=== PATIENT | female | born 2005 | race Caucasian/White ===

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

== ENCOUNTER 2024-06-22 12:10 | Outpatient (CLI) | payer OTHER, SELFPAY ==
--- NOTE | ~2024-06-22 | US_ITS ---
EXAMINATION: US arterial ankle brachial ind DATE: 06/22/2024 12:42 INDICATION: Peripheral arterial occlusive disease. Bilateral lower limb swelling and bilateral foot p ain TECHNIQUE: Segmental pressures and plethysmographic and Doppler waveforms of the brachial and lower e xtremity arteries were obtained. COMPARISON: None. FINDINGS: Right and left brachial artery pressures of 119 mm Hg and 125 mm Hg, respectively, are concordant (no rmal difference <= 30 mmHg). The right ankle-brachial index (IRENE) is 1.13 (normal >= 0.9-1.0). The right great toe-brachial index (TBI) is 1.13 (normal >= 0.65). Arterial Doppler waveforms are biphasic with brisk systolic upstrokes at both right posterior tibial and dorsalis pedis arteries. The left IRENE is 1.10. The left TBI is 1.23. Arterial Doppler waveforms are biphasic with brisk systol ic upstrokes at both left posterior tibial and dorsalis pedis arteries. IMPRESSION: 1. No significant arterial occlusive disease to either lower limb with normal bilateral ABIs and TBIs . Reviewed, dictated and finalized at location B. IMPRESSION: 1. No significant arterial occlusive disease to either lower limb with normal b ilateral ABIs and TBIs.
== END 2024-06-22 12:11 | disposition home or self-care (01) ==
PROVIDERS: PCP Internal Medicine; Visit Provider Nurse Practitioner Family
DX: I73.9 Peripheral vascular disease, unspecified (principal); M79.89 Other specified soft tissue disorders; M79.671 Pain in right foot
CPT/HCPCS: 93922

== ENCOUNTER 2024-06-26 15:30 | Outpatient (CLI) | payer OTHER, SELFPAY ==
[2024-06-26 16:16] LABS: Strep Group A RT-PCR NOT DETECTED (Negative)
[2024-06-26 16:18] LABS: Influenza A QL RT-PCR Negative (Negative); Influenza B QL RT-PCR Negative (Negative); SARS-CoV-2 RNA PCR Negative (Negative)
== END 2024-06-26 15:31 | disposition home or self-care (01) ==
PROVIDERS: PCP Internal Medicine; Visit Provider Nurse Practitioner Family
DX: J02.9 Acute pharyngitis, unspecified (principal); J31.0 Chronic rhinitis
CPT/HCPCS: 87636; 87651

== ENCOUNTER 2024-09-27 07:27 | Emergency (ER) | payer OTHER, SELFPAY ==
[2024-09-27] VITALS (12 sets, daily range): BP systolic 145–158; BP diastolic 88–98; PULSE 69–88; RESP 18–20; TEMP 35.1–36.3; O2SAT 97–100
--- NOTE | ~2024-09-27 | CT_ITS ---
CLINICAL INDICATION: Periumbilical pain for 48 hours COMPARISON: None. TECHNIQUE: Multiple contiguous axial images of the abdomen and pelvis were performed without the admi nistration of intravenous contrast The dose-length product (DLP) was 1377.17 mGy-cm. Automated exposure control and iterative reconstruction technique were employed. FINDINGS/OBSERVATIONS: Visualized lower thorax: The bilateral lung bases are clear. The heart is of normal size, without pericardial effusion. Liver: The liver demonstrates homogeneous attenuation and is borderline enlarged measuring 19 cm in longitud inal dimension. Gallbladder and biliary system: The gallbladder is only minimally distended, and otherwise unremarkable. Pancreas: Limited evaluation of the pancreas secondary to the lack of intravenous contrast. Spleen: The spleen demonstrates homogeneous attenuation and is not enlarged measuring 11 cm in longitudinal d imension. Kidneys: The bilateral kidneys are unremarkable, without hydronephrosis or renal calculi. Adrenal glands: Unremarkable. Gastrointestinal tract: Trace mural thickening and edema within the cecum and ascending colon with surrounding inflammatory c hange. The remainder of the colon is unremarkable. Appendix: The appendix is of normal caliber (axial series, images 133 through 141) Vasculature: Unremarkable. Lymph nodes: No pathologically enlarged or morphologically suspicious lymph nodes within the retroperitoneum or at the root of the mesentery. Pelvic structures: The bladder is decompressed, and otherwise unremarkable. The uterus is anteverted and anteflexed, and otherwise unremarkable. Body wall and musculoskeletal: Small fat-containing umbilical hernia. No significant degenerative disease within the lower thoracic or lumbosacral spine. IMPRESSION: Focal colitis involving the cecum and ascending colon, as detailed above. Borderline hepatomegaly. Normal caliber appendix. Reviewed, dictated and finalized at location A. OR BRIDGE OPERATOR
--- NOTE | 2024-09-27 07:43 | ED.GENADULT ---
HPI - General Adult General Chief complaint: Nausea/Vomiting/Diarrhea Stated complaint: abdominal pain, throwing up Time Seen by Provider: 09/27/24 07:42 Source: patient Mode of arrival: ambulatory Limitations: no limitations History of Present Illness HPI narrative: 18-year-old white female complains of abdominal pain 6/10 constant over last 2 or 3 days associated with nausea and runny nose took Pepto-Bismol and Zofran without any help. 2 days ago patient started having a cough and runny nose coughing up yellow sputum to arrange. She has had multiple diarrheal stools last 24 hours no blood. She vomited just before coming to the emergency room Pepto-Bismol she took and had some dry heaves. She has had a fever of 100 been felt a little chilled. Denies any rash swelling lumps or bumps itching dizziness or lightheadedness bleeding or bruising her last menstrual period was 1 month ago she says she is a virgin. She took some medicine for nausea that her aunt gave her 2 days ago which helped but now she is nauseated again. She smokes marijuana almost every day but has not for the last couple days denies any other illicit drug use smoking or alcohol. Related Data Home Medications ?Medication ?Instructions ?Recorded ?Confirmed ?Last Taken ?Type quetiapine 50 mg tablet 50 mg PO DIRECTED 09/22/22 09/22/22 Unknown History ziprasidone HCl 20 mg capsule 20 mg PO DIRECTED 09/22/22 09/22/22 Unknown History hydroxyzine pamoate 50 mg capsule 50 mg PO DAILY 12/02/23 12/02/23 Unknown History Allergies Allergy/AdvReac Type Severity Reaction Status Date / Time No Known Allergies Allergy Verified 12/02/23 13:27 Review of Systems Review of Systems: All systems reviewed & are unremarkable except as noted in HPI and below PMFSH Past Medical History Medical History Bipolar disorder Anxiety and depression Social History Social History Substance use type: does not use Exam Narrative: White female patient with Mild distress.? Head normocephalic, atraumatic.? Eyes conjunctiva pink sclera nonicteric.? Extraocular movements are intact.? Ears externally normal.? Oropharynx is clear with moist mucous membranes without exudates.? Neck is supple nontender no lymphadenopathy.? Back is nontender.? Lungs are clear.? Heart is regular rate and rhythm without murmurs gallops or rubs.? Chest wall nontender. Abdomen is soft and mild epigastric tenderness but no hepatosplenomegaly or masses no CVA tenderness no abdominal bruits.? Extremities no cyanosis clubbing or edema.? Skin is warm and dry without rashes or lesions.? Neurological patient is alert and oriented x4.? Motor and sensory grossly intact.? Gait is normal. Course Vital Signs Vital signs: Vital Signs Temperature 35.1 C L 09/27/24 07:28 Pulse Rate 88 09/27/24 07:28 Respiratory Rate 18 09/27/24 07:28 Blood Pressure 156/94 H 09/27/24 07:28 Pulse Oximetry 99 09/27/24 07:28 Oxygen Delivery Room Air 09/27/24 07:28 Temperature 36.3 C L 09/27/24 09:36 Pulse Rate 77 09/27/24 09:36 Respiratory Rate 18 09/27/24 09:36 Blood Pressure 158/88 H 09/27/24 09:36 Pulse Oximetry 99 09/27/24 09:36 Oxygen Delivery Room Air 09/27/24 09:36 Medical Decision Making [facility] Narrative Medical decision making narrative: Patient placed in room: 6 ? History and physical was performed. blood cultures were obtained normal lipase lactic acid, test was negative, CBC was unremarkable. Creatinine was 1.35. The rest of CMP was normal Urinalysis: Urinalysis showed specific gravity of 1.030 after L of fluids. Leukocyte esterase trace yeast present 4+ bacteria trace urine ketones CT abdomen pelvis per radiologist:Focal colitis involving the cecum and ascending colon Borderline hepatosplenomegaly. 9:33 a.m. blood pressure was 151/101 repeat 141/104. Patient says she has been having history of hypertension but she is not any medicines they been just walked her blood pressure. manual blood pressure was taken was 158/ 88. Patient does not want to be admitted. risks and benefits discussed with patient she was leaving AMA anyway . Independent Historian: patient External Source Review: Differential Dx includes but not limited to: cyclic vomiting acute gastroenteritis COVID flu acute gastroenteritis Medications were Reviewed: home meds reviewed Medications given: normal saline bolus and Zofran 4 mg Protonix 40 IV, Toradol 30 IV, patient given Cipro 500 p.o. prior to discharge leaving AMA Independently Interpreted by me: CT abdomen pelvis showed no active disease as independently interpreted by me. Shared decision Making: Evaluation was discussed all questions were asked and answered patient does not want to be admitted to the hospital and wants to leave against medical advice. . Risk and benefits were discussed she was leave AMA anyway. patient was instructed she could return at any time if she changes her mind. Social Situation Impacting Patients Care: Discussed with DrSarbjit WOOD DIAGNOSIS: Dehydration acute kidney injury focal colitis DISPOSITION : patient left AMA CONDITION AT DISCHARGE: stable Vital Signs Vital Signs: Vital Signs Temperature 35.1 C L 09/27/24 07:28 Pulse Rate 88 09/27/24 07:28 Respiratory Rate 18 09/27/24 07:28 Blood Pressure 156/94 H 09/27/24 07:28 Pulse Oximetry 99 09/27/24 07:28 Oxygen Delivery Room Air 09/27/24 07:28 Temperature 36.3 C L 09/27/24 09:36 Pulse Rate 77 09/27/24 09:36 Respiratory Rate 18 09/27/24 09:36 Blood Pressure 158/88 H 09/27/24 09:36 Pulse Oximetry 99 09/27/24 09:36 Oxygen Delivery Room Air 09/27/24 09:36 Lab Data 09/27/24 08:06 09/27/24 08:06 Labs: Lab Results 09/27/24 09/27/24 09/27/24 Range/Units 07:45 07:58 08:05 WBC (4.8-10.8) K/mm3 RBC (4.20-5.40) M/mm3 Hgb (12.0-15.0) g/dL Hct (35.0-49.0) % MCV (78.0-102.0) fL MCH (27.0-31.0) pg MCHC (32-36) g/dL RDW (11.6-14.4) % Plt Count (150-420) K/mm3 MPV (9.2-11.8) fl Immature Gran % (Auto) (0.0-0.0) % Neut % (Auto) (50.0-70.0) % Lymph % (Auto) (18.0-42.0) % [place] % (Auto) (2.0-11.0) % Eos % (Auto) (1.0-6.0) % Baso % (Auto) (0.0-1.0) % Lymph # (Auto) (1.10-4.50) K/mm3 [place] # (Auto) (0.10-0.90) K/mm3 Eos # (Auto) (0.02-0.50) K/mm3 Baso # (Auto) (0.00-0.10) K/mm3 Abs Immat Gran (auto) (0.00-0.00) K/mm3 Absolute Neuts (auto) (1.70-7.20) K/mm3 Absolute Nucleated RBC (0.00-0.00) K/mm3 Nucleated RBC % (0-0.0) % Sodium (136-145) mmol/L Potassium (3.5-5.1) mmol/L Chloride (98-108) mmol/L Carbon Dioxide (21-32) mmol/L Anion Gap (4-12) mmol/L BUN (7-18) mg/dL Creatinine (0.55-1.02) mg/dL Estim Creat Clear Calc ml/min Estimated GFR (59 - ) Glucose (70-99) mg/dL Calculated Osmolality (285-295) mOsm/kg Lactic Acid (0.4-2.0) mmol/L Calcium (8.5-10.1) mg/dL Total Bilirubin (0.00-1.00) mg/dL AST (15-37) U/L ALT (14-59) U/L Alkaline Phosphatase (50-130) U/L Total Protein (6.4-8.2) g/dL Albumin (3.4-5.0) g/dL Lipase (16-77) U/L Serum HCG, Qual Negative Urine Color Yellow (Yellow) Urine Appearance Sl cloudy A (Clear) Urine pH 5.5 (5.0-8.0) Ur Specific [place]ancey >= 1.030 H (1.010-1.020) Urine Protein Negative (Negative) Urine Glucose (UA) Negative (Negative) Urine Ketones Trace H (Negative) Ur Blood (Man) Negative (Negative) Urine Nitrate Negative (Negative) Urine Bilirubin Negative (Negative) Urine Urobilinogen 0.2 (0.2-1.0) mg/dL Leukocyte Esterase Rfl Trace H (Negative) RYAN/UL Urine RBC 0-2 (0-2) /hpf Urine WBC 4-6 H (0-3) /hpf Ur Squamous Epith Cells Moderate H (Few) /hpf Urine Bacteria 4+ (None) /hpf Urine Yeast (Budding) Present H (None) /hpf Influenza A (RT-PCR) Negative (Negative) Influenza B (RT-PCR) Negative (Negative) RSV (RT-PCR) Negative (Negative) SARS-CoV-2 RNA (RT-PCR) Negative (Negative) 09/27/24 Range/Units 08:06 WBC 9.7 (4.8-10.8) K/mm3 RBC 5.87 H (4.20-5.40) M/mm3 Hgb 15.4 H (12.0-15.0) g/dL Hct 44.7 (35.0-49.0) % MCV 76.1 L (78.0-102.0) fL MCH 26.2 L (27.0-31.0) pg MCHC 34.5 (32-36) g/dL RDW 12.0 (11.6-14.4) % Plt Count 245 (150-420) K/mm3 MPV 9.2 (9.2-11.8) fl Immature Gran % (Auto) 0.3 H (0.0-0.0) % Neut % (Auto) 74.0 H (50.0-70.0) % Lymph % (Auto) 17.7 L (18.0-42.0) % [place] % (Auto) 6.8 (2.0-11.0) % Eos % (Auto) 0.7 L (1.0-6.0) % Baso % (Auto) 0.5 (0.0-1.0) % Lymph # (Auto) 1.71 (1.10-4.50) K/mm3 [place] # (Auto) 0.66 (0.10-0.90) K/mm3 Eos # (Auto) 0.07 (0.02-0.50) K/mm3 Baso # (Auto) 0.05 (0.00-0.10) K/mm3 Abs Immat Gran (auto) 0.03 H (0.00-0.00) K/mm3 Absolute Neuts (auto) 7.15 (1.70-7.20) K/mm3 Absolute Nucleated RBC 0.00 (0.00-0.00) K/mm3 Nucleated RBC % 0.0 (0-0.0) % Sodium 137 (136-145) mmol/L Potassium 3.9 (3.5-5.1) mmol/L Chloride 100 (98-108) mmol/L Carbon Dioxide 25 (21-32) mmol/L Anion Gap 12 (4-12) mmol/L BUN 16 (7-18) mg/dL Creatinine 1.35 H (0.55-1.02) mg/dL Estim Creat Clear Calc 75 ml/min Estimated GFR 51 L (59 - ) Glucose 138 H (70-99) mg/dL Calculated Osmolality 287 (285-295) mOsm/kg Lactic Acid 1.2 (0.4-2.0) mmol/L Calcium 9.1 (8.5-10.1) mg/dL Total Bilirubin 0.7 (0.00-1.00) mg/dL AST 31 (15-37) U/L ALT 54 (14-59) U/L Alkaline Phosphatase 81 (50-130) U/L Total Protein 8.0 (6.4-8.2) g/dL Albumin 4.4 (3.4-5.0) g/dL Lipase 35 (16-77) U/L Serum HCG, Qual Urine Color (Yellow) Urine Appearance (Clear) Urine pH (5.0-8.0) Ur Specific [place] (1.010-1.020) Urine Protein (Negative) Urine Glucose (UA) (Negative) Urine Ketones (Negative) Ur Blood (Man) (Negative) Urine Nitrate (Negative) Urine Bilirubin (Negative) Urine Urobilinogen (0.2-1.0) mg/dL Leukocyte Esterase Rfl (Negative) RYAN/UL Urine RBC (0-2) /hpf Urine WBC (0-3) /hpf Ur Squamous Epith Cells (Few) /hpf Urine Bacteria (None) /hpf Urine Yeast (Budding) (None) /hpf Influenza A (RT-PCR) (Negative) Influenza B (RT-PCR) (Negative) RSV (RT-PCR) (Negative) SARS-CoV-2 RNA (RT-PCR) (Negative) Discharge Plan Discharge Clinical Impression: Nausea vomiting and diarrhea, Acute kidney injury, Focal active colitis, Elevated blood pressure reading, Acute UTI Patient Disposition: Left Against Medical Advice Condition: Stable Additional Instructions: follow-up with your primary care provider this week return if you change your mind and want admission. Return if you get worse or develops any new symptoms. Patient Language: Spanish Prescriptions: No Action hydroxyzine pamoate 50 mg capsule 50 mg PO DAILY ziprasidone HCl 20 mg capsule 20 mg PO DIRECTED quetiapine 50 mg tablet 50 mg PO DIRECTED Follow-up/Referrals: Leo Turner MD [Primary Care Provider] - Time of Disposition: 09:42
[2024-09-27] MEDS: SODIUM CHLORIDE 0.9% IV 1,000 ML 999 ML IV CONT (08:06)
[2024-09-27] MEDS: ONDANSETRON INJ 4 MG/2 ML VIAL IV PUSH (08:06)
[2024-09-27] MEDS: KETOROLAC 30 MG/ML VIAL (*BKC) IV PUSH (08:08)
[2024-09-27] MEDS: PANTOPRAZOLE SODIUM IV 40 MG VIAL IV PUSH (08:09)
[2024-09-27 08:11] LABS: Basophils Absolute Auto 0.05 K/mm3 (0.00-0.10); Basophils Percent Auto 0.5 % (0.0-1.0); Eosinophils Absolute Auto 0.07 K/mm3 (0.02-0.50); Eosinophils Percent Auto 0.7 % (1.0-6.0); Hematocrit 44.7 % (35.0-49.0); Hemoglobin 15.4 g/dL (12.0-15.0); Immature Granulocyte Absolute 0.03 K/mm3 (0.00-0.00); Immature Granulocyte Percent A 0.3 % (0.0-0.0); Lymphocytes Absolute Auto 1.71 K/mm3 (1.10-4.50); Lymphocytes Percent Auto 17.7 % (18.0-42.0); Mean Corpuscular HGB Conc 34.5 g/dL (32-36); Mean Corpuscular Hemoglobin 26.2 pg (27.0-31.0); Mean Corpuscular Volume 76.1 fL (78.0-102.0); Mean Platelet Volume 9.2 fl (9.2-11.8); Monocytes Absolute Auto 0.66 K/mm3 (0.10-0.90); Monocytes Percent Auto 6.8 % (2.0-11.0); Neutrophils Absolute Auto 7.15 K/mm3 (1.70-7.20); Platelet Count Result 245 K/mm3 (150-420); Red Blood Count 5.87 M/mm3 (4.20-5.40); White Blood Count 9.7 K/mm3 (4.8-10.8)
[2024-09-27 08:23] LABS: SPREG INTERNAL CONTROL Positive; Serum Qual hCG Negative
[2024-09-27 08:26] LABS: Alanine Aminotransferase 54 U/L (14-59); Albumin Level 4.4 g/dL (3.4-5.0); Alkaline Phosphatase 81 U/L (50-130); Anion Gap 12 mmol/L (4-12); Aspartate Amino Transferase 31 U/L (15-37); Bilirubin,Total 0.7 mg/dL (0.00-1.00); Blood Urea Nitrogen 16 mg/dL (7-18); Calcium 9.1 mg/dL (8.5-10.1); Carbon Dioxide 25 mmol/L (21-32); Chloride 100 mmol/L (98-108); Estimated CRCL calculation 75 ml/min; Estimated Glomerular Filt Rate 51; Glucose 138 mg/dL (70-99); Lipase 35 U/L (16-77); Osmolality Calculated 287 mOsm/kg (285-295); Potassium 3.9 mmol/L (3.5-5.1); Sodium 137 mmol/L (136-145)
[2024-09-27 08:29] LABS: Lactic Acid Reflex 1.2 mmol/L (0.4-2.0)
[2024-09-27 08:48] LABS: SARS-CoV-2 RNA PCR Negative (Negative)
[2024-09-27 08:49] LABS: Influenza A QL RT-PCR Negative (Negative); Influenza B QL RT-PCR Negative (Negative); RSV RNA, RT-PCR Negative (Negative)
[2024-09-27 09:18] LABS: Add Urine Microscopic? YES; Appearance Urine Sl Cloudy (Clear); Bilirubin Urine Negative (Negative); Blood Urine Negative (Negative); Color Urine Yellow (Yellow); Glucose Urine UA Negative (Negative); Ketones Urine Trace (Negative); Leukocyte Esterase Ur Trace LEU/UL (Negative); Nitrate Urine Negative (Negative); Protein Urine Negative (Negative); Specific Grav Ur >= 1.030 (1.010-1.020); Urobilinogen Urine 0.2 mg/dL (0.2-1.0); pH Urine 5.5 (5.0-8.0)
[2024-09-27 09:30] LABS: Bacteria Urine 4+ /hpf; RBC Urine 0-2 /hpf (0-2); Squamous Epithelial Cell Urine Moderate /hpf (Few)
[2024-09-27 09:31] LABS: Budding Yeast Urine Present /hpf
--- NOTE | 2024-09-28 12:43 | PC.NURSE ---
PRELIMINARY BLOOD CULTURE; NO GROWTH TO DATE.
--- NOTE | 2024-09-30 12:45 | PC.NURSE ---
preliminary blood cultures x2 reviewed. no growth
--- NOTE | 2024-09-30 12:46 | PC.NURSE ---
preliminary blood cultures x2 reviewed. no growth to date
--- NOTE | 2024-10-03 18:18 | PC.NURSE ---
final blood culture report; no growth after 5 days, no further action or change in treatment needed.
--- OUTSIDE RECORDS SUMMARY | 2024-10-04 04:33 | XMS_ITS | Encounter Summary ---
Author Organization [facility] Address [address] [place] [address]. [place] [address] [place] [address] Care Team Providers Care Programming Equipment Operator Name Role Phone Unavailable Primary Care Provider Unavailabl e Encounter Details Date Type Department Care Team (Late st Contact Info) Description 04/27/[address] 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
--- OUTSIDE RECORDS SUMMARY | 2024-10-04 04:33 | XMS_ITS | Referral Summary ---
Author Organization [facility] Address [address] [place] [address] Care Team Providers Care Veneer Cutter Name Role Phone Leo Turner MD Primary Care Provider [phone] Source Comments [facility],non-owned Affiliates and Associated Physician Practices is amultiple site organization consisting of ambulatory clinics and hospital sitesin [place], [place], [place] and [place]. This disclosure is being madepursuant to the Care Everywhere program and may not contain all information available regarding this patient. Last updated 18.[facility] Active Problems Problem Noted Date Diagnosed Date Abdominal pain 07/04/2018 Social History Tobacco Use Types Packs/Day Years Used Date Smoking Tobacco: Never Assessed Sex and Gender Information Value Date Recorded Sex Assigned at Not on file Gender Identity Not on file Sexual Orientation Not on file Last Filed Vital Signs Vital Sign Reading Time Taken Comments Blood Pressure 119/80 05/17/2018 8:25 AM CDT per pcp Pulse - - Temperature 35.5 ??C (95.9 ??F) 05/17/2018 8:25 AM CD T per pcp Respiratory Rate - - Oxygen Saturation 96% 05/17/2018 8:25 AM CDT per pcp Inhaled Oxygen Concentration - - Weight 83 kg (183 lb) 05/17/2018 8:25 AM CDT per pcp Height 162.6 cm (5' 4 ) 05/17/2018 8:25 AM CDT p er pcp Body Mass Index 31.41 05/17/2018 8:25 AM CDT Body Mass Index Percentile 97.92% 05/17/2018 8:2 5 AM CDT Growth Chart: [facility] (Girls, 2- 20 Years) Plan of Treatment Not on file Care Teams Veneer Cutter Relationship Specialty Start Date End Date Leo Turner MD [address] [id number] PCP - General Internal Medicine 05/19/18
--- OUTSIDE RECORDS SUMMARY | 2024-10-04 04:33 | XMS_ITS | Patient Health Summary ---
Author Organization [facility] Address [address] [place] [address] Care Team Providers Care Survey Interviewer Name Role Phone Leo Turner MD Primary Care Provider [phone] Note from [facility],non-owned Affiliates and Associated Physician Practices is amultiple site organization consisting of ambulatory clinics and hospital sitesin [place], [place], [place] and [place]. This disclosure is being madepursuant to the Care Everywhere program and may not contain all information available regarding this patient. Last updated 18.[facility] Active Problems Problem Noted Date Diagnosed [...] 05/17/2018 8:2 5 AM CDT Growth Chart: [facility] (Girls, 2- 20 Years) Care Teams Survey Interviewer Relationship Specialty Start Date End Date Leo Turner MD [address] [id number] PCP - General Internal Medicine 05/19/18
--- OUTSIDE RECORDS SUMMARY | 2024-10-04 04:33 | XMS_ITS | Clinical Summary ---
Author Organization [facility] Address [address] [place] [address]. 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 Gender Identity Not on file Sexual Orientation Not on file Plan of Treatment Health Maintenance Due Date Last Done Comments Annual Physical 2007 HPV Vaccines (1 - 3-dose series) 2019 Hepatitis C 2022 DTaP, Tdap and Td Vaccines ( 1 - Tdap) 2023 Hepatitis B Vaccines (1 of 3 - 19+ 3-dose series) 2023 COVID-19 Vaccine ( - 2023-2 5 season) 2024 Influenza Adult (#1) 2024 Meningococcal Vaccine Aged Out No johny elisabet eligible based on patient's age to complete this topic Pneumococcal Vaccine: Pediat rics (0 to 5 Years) and At-Risk Patients (6 to 64 Years) Aged Out No longer eligible b ased on patient's age to complete this topic RSV Immunizations Under 20 Months Aged Out No longer eligible based on patient's age to complete this topic
--- OUTSIDE RECORDS SUMMARY | 2024-10-04 04:33 | XMS_ITS | Encounter Summary ---
Author Organization [facility] Address [facility] [address] [place] [address] Care Team Providers Care Traffic Operations Manager Name Role Phone Unavailable Primary Care Provider Unavailabl e Encounter Details Date Type Department Care Team (Late st Contact Info) Description 06/21/2006 Abstract [facility] [address] [place] [address] Albin Somers MD [address] [id number] Social History Tobacco Use Types Packs/Day Years Used Date Smoking Tobacco: Never Assessed Comments Unknown Sex and Gender Information Value Date Recorded Sex Assigned at Not on file Legal Sex Female 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
--- OUTSIDE RECORDS SUMMARY | 2024-10-04 04:33 | XMS_ITS | Encounter Summary ---
Author Organization [facility] Address [address] [place] [address]. [place], [place] [address] [place] [address] Care Team Providers Care Ticket Seller Name Role Phone Unavailable Primary Care Provider Unavailabl e Encounter Details Date Type Department Care Team (Late st Contact Info) Description 2004 Abstract [facility] [address] [place] [address] Jos Cruz MD [address] [place] [phone] Social History Tobacco Use Types Packs/Day Years Used Date Smoking Tobacco: Never Assessed Comments Unknown Sex and Gender Information Value Date Recorded Sex Assigned at Not on file Legal Sex Female 5:50 PM CHOCOLATE MAKER Gender Identity Not on file Sexual Orientation Not on file documented as of this encounter Plan of Treatment Not on file documented as of this encounter Visit Diagnoses Not on filedocumented in this encounter
--- OUTSIDE RECORDS SUMMARY | 2024-10-04 04:33 | XMS_ITS | Encounter Summary ---
Author Organization [facility] Address [address] [place] [address]. [place] [address] [place] [address] Care Team Providers Care Munitions Factory Worker Name Role Phone Unavailable Primary Care Provider Unavailabl e Encounter Details Date Type Department Care Team (Late st Contact Info) Description 2004 Abstract [facility] [address] [place] [address] Social History Tobacco Use Types Packs/Day Years Used Date Smoking Tobacco: Never Assessed Comments Unknown Sex and Gender Information Value Date Recorded Sex Assigned at Not on file Legal Sex Female 5:50 PM KILN WORKER Gender Identity Not on file Sexual Orientation Not on file documented as of this encounter Plan of Treatment Not on file documented as of this encounter Visit Diagnoses Not on filedocumented in this encounter
--- OUTSIDE RECORDS SUMMARY | 2024-10-04 04:33 | XMS_ITS | Encounter Summary ---
Author Organization [facility] Address formerly [facility] [place], [place] [address] [place] [address] Care Team Providers Care Educational/Development Assistant Name Role Phone Unavailable Primary Care Provider Unavailabl e Encounter Details Date Type Department Care Team (Late st Contact Info) Description 01/06/2006 Abstract [facility] [address] [place] [address] Jose Carpenter MD [address] [place] [phone] Social History Tobacco Use Types Packs/Day Years Used Date Smoking Tobacco: Never Assessed Comments Unknown Sex and Gender Information Value Date Recorded Sex Assigned at Not on file 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
--- OUTSIDE RECORDS SUMMARY | 2024-10-04 04:33 | XMS_ITS | Clinical Summary ---
Author Organization [facility] Address [address] [place] [address] Care Team Providers Care Home Health Clinician Name Role Phone Leo Turner MD Primary Care Provider [phone] Source Comments [facility],non-owned Affiliates and Associated Physician Practices is amultiple site organization consisting of ambulatory clinics and hospital sitesin [place], [place], [place] and [place]. This disclosure is being madepursuant to the Care Everywhere program and may not contain all information available regarding this patient. Last updated 18.[facility] Active Problems Problem Noted Date Diagnosed Date [...] 05/17/2018 8:2 5 AM CDT Growth Chart: [facility] (Girls, 2- 20 Years) Plan of Treatment Health Maintenance Due Date Last Done Comments HIV SCREENING 2019 HPV VACCINE (1 - 3-dose series) 2019 CHLAMYDIA/GONORRHEA SCREENING 2020 HEPATITIS C SCREENING 10/19/2022 DEPRESSION SCREENING 10/04/2023 DTAP/TDAP/TD VACCINES (1 - Tdap) 2023 HEPATITIS B VACCINE (1 of 3 - 19+ 3-dose series) 2023 COVID-19 VACCINE (1 - 2023-2 5 season) 2024 INFLUENZA VACCINE (#1) 2024 ZOSTER VACCINE (1 of 2) 2054 HIB VACCINE Aged Out No longer eligi ble based on patient's age to complete this topic MENINGOCOCCAL VACCINE Aged Out No johny elisabet eligible based on patient's age to complete this topic PNEUMOCOCCAL VACCINE Aged Out No long er eligible based on patient's age to complete this topic Care Teams Home Health Clinician Relationship Specialty Start Date End Date Leo Turner MD [address] [place], [place] [phone] PCP - General Internal Medicine 05/19/18
--- NOTE | 2024-10-04 12:29 | PC.NURSE ---
FINAL BLOOD CULTURE REPORT; NO GROWTH AFTER 5 DAYS.
== END 2024-09-27 09:50 | disposition left against medical advice (07) ==
PROVIDERS: Emergency Provider Emergency Medicine; PCP Internal Medicine
DX: N17.9 Acute kidney failure, unspecified (principal); N39.0 Urinary tract infection, site not specified; R11.2 Nausea with vomiting, unspecified; K52.9 Noninfective gastroenteritis and colitis, unspecified; R03.0 Elevated blood-pressure reading, without diagnosis of hypertension; F31.9 Bipolar disorder, unspecified; F41.9 Anxiety disorder, unspecified; Z20.822 Contact with and (suspected) exposure to COVID-19
CPT/HCPCS: 36415; 74176; 80053; 81001; 83605; 83690; 84703; 85025; 87040; 87637; 96361; 96374; 96375; 99284; J1885; J2405; J2470; J7030

== ENCOUNTER 2024-10-27 13:44 | Outpatient (CLI) | payer OTHER, SELFPAY ==
[2024-10-27 14:03] LABS: Basophils Absolute Auto 0.03 K/mm3 (0.00-0.10); Basophils Percent Auto 0.3 % (0.0-1.0); Eosinophils Absolute Auto 0.03 K/mm3 (0.02-0.50); Eosinophils Percent Auto 0.3 % (1.0-6.0); Hematocrit 46.8 % (35.0-49.0); Immature Granulocyte Absolute 0.03 K/mm3 (0.00-0.00); Immature Granulocyte Percent A 0.3 % (0.0-0.0); Lymphocytes Absolute Auto 2.78 K/mm3 (1.10-4.50); Lymphocytes Percent Auto 29.1 % (18.0-42.0); Mean Corpuscular HGB Conc 34.2 g/dL (32-36); Mean Corpuscular Hemoglobin 26.3 pg (27.0-31.0); Mean Platelet Volume 9.5 fl (9.2-11.8); Monocytes Absolute Auto 0.89 K/mm3 (0.10-0.90); Monocytes Percent Auto 9.3 % (2.0-11.0); Neutrophils Percent Auto 60.7 % (50.0-70.0); Platelet Count Result 350 K/mm3 (150-420); Red Blood Count 6.08 M/mm3 (4.20-5.40); Red Cell Distribution Width 12.8 % (11.6-14.4); White Blood Count 9.6 K/mm3 (4.8-10.8)
[2024-10-27 14:04] LABS: Add Urine Microscopic? YES; Appearance Urine Clear (Clear); Bilirubin Urine 1+ (Negative); Blood Urine Negative (Negative); Color Urine Yellow (Yellow); Glucose Urine UA Negative (Negative); Ketones Urine 2+ (Negative); Leukocyte Esterase Ur Negative (Negative); Nitrate Urine Negative (Negative); Protein Urine Trace (Negative); pH Urine 6.5 (5.0-8.0)
[2024-10-27 14:22] LABS: Bacteria Urine 1+ /hpf; RBC Urine None seen /hpf (0-2); Squamous Epithelial Cell Urine Few /hpf (Few); WBC Urine None seen /hpf (0-3)
[2024-10-27 14:34] LABS: Alanine Aminotransferase 74 U/L (14-59); Albumin Level 4.7 g/dL (3.4-5.0); Alkaline Phosphatase 75 U/L (46-116); Amylase 298 U/L (25-115); Anion Gap 12 mmol/L (4-12); Aspartate Amino Transferase 28 U/L (15-37); Bilirubin,Total 1.1 mg/dL (0.00-1.00); Blood Urea Nitrogen 15 mg/dL (7-18); CRP 0.8 mg/dL (0.0-0.9); Calcium 9.6 mg/dL (8.5-10.1); Carbon Dioxide 28 mmol/L (21-32); Chloride 96 mmol/L (98-108); Estimated Glomerular Filt Rate > 60; Glucose 109 mg/dL (70-99); Magnesium 2.5 mg/dL (1.8-2.4); Osmolality Calculated 283 mOsm/kg (285-295); Potassium 3.2 mmol/L (3.5-5.1); Sodium 136 mmol/L (136-145)
[2024-10-27 14:51] LABS: Lipase 715 U/L (16-77)
[2024-10-27 15:17] LABS: Erythrocyte Sedimentation Rate 5 mm/hr (0-15)
== END 2024-10-27 13:45 | disposition home or self-care (01) ==
LOC: CHSLAB 13:47
PROVIDERS: PCP Internal Medicine; Visit Provider Internal Medicine
DX: R79.89 Other specified abnormal findings of blood chemistry (principal); R82.81 Pyuria; R11.2 Nausea with vomiting, unspecified
CPT/HCPCS: 36415; 80053; 81001; 82150; 83690; 83735; 84100; 85025; 85652; 86140; 87086

== ENCOUNTER 2024-10-27 17:31 | Emergency (ER) | payer OTHER, SELFPAY ==
--- NOTE | ~2024-10-27 | CT_ITS ---
CLINICAL INDICATION: Abdominal pain COMPARISON: 09/27/2024. TECHNIQUE: Multiple contiguous axial images of the abdomen and pelvis were performed following the ad ministration of with 100 mL Omnipaque-350 intravenous contrast The dose-length product (DLP) was 1247.15 mGy-cm. Automated exposure control and iterative reconstruction technique were employed. FINDINGS/OBSERVATIONS: Visualized lower thorax: The bilateral lung bases are clear. The heart is of normal size, without pericardial effusion. Small hiatal hernia is present. Liver: The liver enhances homogeneously and is not enlarged measuring 17 cm in longitudinal dimension. Decre ased attenuation identified within segment 4, findings suggesting focal fatty infiltration Gallbladder and biliary system: The gallbladder is only minimally distended, and otherwise unremarkable. Pancreas: The pancreas enhances homogeneously without ductal dilatation. Spleen: The spleen enhances homogeneously and is not enlarged measuring 8 cm in longitudinal dimension. Kidneys: The bilateral kidneys enhance symmetrically without hydronephrosis or renal calculi. Adrenal glands: Unremarkable. Gastrointestinal tract: Trace mural thickening within the cecum, ascending and proximal transverse colon, with absence of mur al edema detected on previous examination. Trace fecal stasis within the rectosigmoid colon. Appendix: The appendix is of normal caliber (axial series, images 117 through 129). Vasculature: Unremarkable. Lymph nodes: No pathologically enlarged or morphologically suspicious lymph nodes within the retroperitoneum or at the root of the mesentery. Pelvic structures: The bladder is decompressed, and otherwise unremarkable. The uterus is anteverted and anteflexed, and otherwise unremarkable. Body wall and musculoskeletal: Small fat-containing umbilical hernia. No significant degenerative disease within the lower thoracic or lumbosacral spine. IMPRESSION: Improved appearance of the proximal colon, when compared with previous examination performed 1 month earlier. Otherwise, unremarkable CT examination of the abdomen and pelvis, as detailed above. Reviewed, dictated and finalized at location A. TY SHERIFF LIEUTENANT IMPRESSION: Improved appearance of the proximal colon, when compared with previous examinat ion performed 1 month earlier. Otherwise, unremarkable CT examination of the abdomen and pelvis, as detailed rodolfo rutherford.
[2024-10-27 17:31] VITALS: BP 144/87; PULSE 95; RESP 16; TEMP 36.3; O2SAT 96
--- NOTE | 2024-10-27 18:11 | ED_ITS ---
HPI - Abdominal Pain General Chief Complaint: Abdominal Pain Stated Complaint: pancreatitis Time Seen by Provider: 10/27/24 17:44 Source: patient Mode of arrival: ambulatory Limitations: no limitations History of Present Illness HPI narrative: patient is a 19-year-old female with abdominal pain for the past week and went to her primary doctor for evaluation this week. They did a laboratory study and found that she had pancreatitis. She was told to come to the ER with any worsening symptoms. She is having continued abdominal pain and nausea vomiting. MD elicited complaint: abdominal pain Pertinent past history: other ( Hyperlipidemia) Onset (ago): week(s) (1) Pain Consistency: constant Location: epigastric Severity: moderate Pain scale (0-10): 4 Quality: sharp Radiation: none Migration to: no migration Exacerbating factors: nothing Relieving factors: nothing Context: confirms possible food poisoning ( initially it was thought that she had gastroenteritis from a sick child at home) and confirms sick contacts ( similar symptoms) Associated symptoms: nausea and vomiting Treatments prior to arrival: other ( none) Related Data Home Medications ?Medication ?Instructions ?Recorded ?Confirmed ?Last Taken ?Type quetiapine 50 mg tablet 50 mg PO DIRECTED 09/22/22 09/22/22 Unknown History ziprasidone HCl 20 mg capsule 20 mg PO DIRECTED 09/22/22 09/22/22 Unknown History hydroxyzine pamoate 50 mg capsule 50 mg PO DAILY 12/02/23 12/02/23 Unknown History Allergies Allergy/AdvReac Type Severity Reaction Status Date / Time pineapple Allergy Hives Verified 10/27/24 18:06 adhesive AdvReac Rash Verified 10/27/24 18:06 Review of Systems 2 Review of Systems: All systems reviewed & are unremarkable except as noted in HPI and below Constitutional: Constitutional: Reports no additional constitutional complaints Eyes: Eyes: Reports no additional eye complaints ENT: Reports system reviewed and no additional complaints, except as documented Cardiovascular: Cardiovascular: Reports no additional cardiovascular complaints Respiratory: Respiratory: Reports no additional respiratory complaints Gastrointestinal: Gastrointestinal: Reports no additional gastrointestinal complaints Genitourinary: Genitourinary: Reports no additional female genitourinary complaints Musculoskeletal: Musculoskeletal: Reports no additional musculoskeletal complaints Integumentary/Breasts: Skin/Breast: Reports system reviewed and no additional complaints, except as docu Neurologic: Reports system reviewed and no additional complaints, except as documented Psychiatric: Psychiatric: Reports no additional psychiatric complaints Endocrine: Endocrine: Reports no additional endocrine complaints Hematologic/Lymphatic: Hematologic/Lymphatic: Reports no additional hematologic/lymphatic complaints Allergic/Immunologic: Allergic/Immunologic: Reports no additional allergic/immunologic complaints PMFSH Past Medical History Medical History Bipolar disorder Anxiety and depression Social History Social History Substance use type: does not use Exam 2 Const: General: healthy appearing Nutritional Appearance: well nourished Orientation/consciousness: patient oriented x3 HENMT: Head: normal to inspection Ears: external ears normal F daiana/Nose/Sinus: Normal external nose present Eyes: Conjunctivae: conjunctivae normal Pupils: Equal, round and reactive pupils present EOM: EOMs intact bilaterally Neck: Neck: normal visual inspection Chest: Chest palpation & inspection: normal inspection of the chest Resp: Effort & Inspection: normal respiratory effort and not labored A uscultation: clear to auscultation bilaterally and no crackles Cardio: Rate: regular rate Rhythm: regular rhythm Heart sounds: no murmurs GI: Inspection: non-distended GI Palp: Yes Soft to palpation and No Tenderness to palpation present (GI) Auscultation: normal bowel sounds : General: Yes bladder normal to palpation Back/Spine/Pelvis: Back: no CVA tenderness Skin: General skin exam: normal color Rashes: no rashes Wounds: no wounds Neuro: General: patient oriented x3 Cranial nerves: Yes Nystagmus not present Speech: normal speech Extrem: General: normal to inspection Psych: Mental Status: mental status grossly normal Affect: normal affect Attitude: cooperative Course Vital Signs Vital signs: Vital Signs Temperature 36.3 C L 10/27/24 17:31 Pulse Rate 95 10/27/24 17:31 Respiratory Rate 16 10/27/24 17:31 Blood Pressure 144/87 H 10/27/24 17:31 Pulse Oximetry 96 10/27/24 17:31 Oxygen Delivery Room Air 10/27/24 17:31 Temperature 36.3 C L 10/27/24 17:31 Pulse Rate 90 10/27/24 19:19 Respiratory Rate 18 10/27/24 19:19 Blood Pressure 136/90 10/27/24 19:19 Pulse Oximetry 100 10/27/24 19:19 Oxygen Delivery Room Air 10/27/24 19:19 MDM - Abdominal Pain MDM Narrative Medical decision making narrative: patient is a 19-year-old female with abdominal pain for the past week. We will do a complete workup at this time for abdominal pain as she was found to have an elevated lipase in the 700 range without a definite cause. I want to rule out or rule in reasons for a 19-year-old and pancreatitis. She is not alcoholic. Lab Data Attestation: I reviewed the patient's lab results. 10/27/24 18:36 10/27/24 18:36 Labs: Lab Results 10/27/24 Range/Units 18:36 WBC 8.9 (4.8-10.8) K/mm3 RBC 5.98 H (4.20-5.40) M/mm3 Hgb 15.7 H (12.0-15.0) g/dL Hct 46.6 (35.0-49.0) % MCV 77.9 L (78.0-102.0) fL MCH 26.3 L (27.0-31.0) pg MCHC 33.7 (32-36) g/dL RDW 12.9 (11.6-14.4) % Plt Count 316 (150-420) K/mm3 MPV 9.4 (9.2-11.8) fl Immature Gran % (Auto) 0.5 H (0.0-0.0) % Neut % (Auto) 60.6 (50.0-70.0) % Lymph % (Auto) 29.1 (18.0-42.0) % [place] % (Auto) 8.9 (2.0-11.0) % Eos % (Auto) 0.3 L (1.0-6.0) % Baso % (Auto) 0.6 (0.0-1.0) % Lymph # (Auto) 2.58 (1.10-4.50) K/mm3 [place] # (Auto) 0.79 (0.10-0.90) K/mm3 Eos # (Auto) 0.03 (0.02-0.50) K/mm3 Baso # (Auto) 0.05 (0.00-0.10) K/mm3 Abs Immat Gran (auto) 0.04 H (0.00-0.00) K/mm3 Absolute Neuts (auto) 5.38 (1.70-7.20) K/mm3 Absolute Nucleated RBC 0.00 (0.00-0.00) K/mm3 Nucleated RBC % 0.0 (0-0.0) % PT 12.0 (9.50-12.1) Seconds INR 1.1 APTT 22.9 L (23.9-30.70) Sec Sodium 133 L (136-145) mmol/L Potassium 3.3 L (3.5-5.1) mmol/L Chloride 94 L (98-108) mmol/L Carbon Dioxide 31 (21-32) mmol/L Anion Gap 8 (4-12) mmol/L BUN 15 (7-18) mg/dL Creatinine 1.17 H (0.55-1.02) mg/dL Estim Creat Clear Calc 84 ml/min Estimated GFR 59 (59 - ) Glucose 96 (70-99) mg/dL Calculated Osmolality 276 L (285-295) mOsm/kg Calcium 9.5 (8.5-10.1) mg/dL Total Bilirubin 1.1 H (0.00-1.00) mg/dL AST 29 (15-37) U/L ALT 68 H (14-59) U/L Alkaline Phosphatase 63 (46-116) U/L Total Protein 8.1 (6.4-8.2) g/dL Albumin 4.5 (3.4-5.0) g/dL Triglycerides 114 (0-150) mg/dL Lipase 605 H (16-77) U/L Urine Color Yellow (Yellow) Urine Appearance Clear (Clear) Urine pH 5.5 (5.0-8.0) Ur Specific [place] 1.025 H (1.010-1.020) Urine Protein Trace H (Negative) Urine Glucose (UA) Negative (Negative) Urine Ketones 1+ H (Negative) Ur Blood (Man) Negative (Negative) Urine Nitrate Negative (Negative) Urine Bilirubin 2+ H (Negative) Urine Urobilinogen 1.0 (0.2-1.0) mg/dL Leukocyte Esterase Rfl Negative (Negative) RYAN/UL Urine RBC 0-2 (0-2) /hpf Urine WBC 0-3 (0-3) /hpf Ur Squamous Epith Cells Few (Few) /hpf Amorphous Sediment Few H (None) Urine Bacteria Trace (None) /hpf Urine Mucus Moderate H /lpf Urine Test Negative Imaging Data Attestation: I personally reviewed and interpreted this imaging study as follows: Radiologist's impression: ITS Impressions Abdomen/Pelvis CT 10/27/24 19:46 IMPRESSION: Improved appearance of the proximal colon, when compared with previous examination performed 1 month earlier. Otherwise, unremarkable CT examination of the abdomen and pelvis, as detailed above. Discharge Plan Discharge Clinical Impression: Gastroenteritis Patient Disposition: Home, Self-Care Condition: Stable Instructions: Abdominal Pain (ED) Patient Language: [place] Prescriptions: No Action hydroxyzine pamoate 50 mg capsule 50 mg PO DAILY ziprasidone HCl 20 mg capsule 20 mg PO DIRECTED quetiapine 50 mg tablet 50 mg PO DIRECTED Follow-up/Referrals: Leo Turner MD [Primary Care Provider] - Time of Disposition: 20:18
[2024-10-27 18:41] LABS: Basophils Absolute Auto 0.05 K/mm3 (0.00-0.10); Basophils Percent Auto 0.6 % (0.0-1.0); Eosinophils Absolute Auto 0.03 K/mm3 (0.02-0.50); Eosinophils Percent Auto 0.3 % (1.0-6.0); Hematocrit 46.6 % (35.0-49.0); Hemoglobin 15.7 g/dL (12.0-15.0); Immature Granulocyte Absolute 0.04 K/mm3 (0.00-0.00); Immature Granulocyte Percent A 0.5 % (0.0-0.0); Lymphocytes Absolute Auto 2.58 K/mm3 (1.10-4.50); Lymphocytes Percent Auto 29.1 % (18.0-42.0); Mean Corpuscular HGB Conc 33.7 g/dL (32-36); Mean Corpuscular Hemoglobin 26.3 pg (27.0-31.0); Mean Corpuscular Volume 77.9 fL (78.0-102.0); Mean Platelet Volume 9.4 fl (9.2-11.8); Monocytes Absolute Auto 0.79 K/mm3 (0.10-0.90); Monocytes Percent Auto 8.9 % (2.0-11.0); Neutrophils Absolute Auto 5.38 K/mm3 (1.70-7.20); Neutrophils Percent Auto 60.6 % (50.0-70.0); Platelet Count Result 316 K/mm3 (150-420); Red Blood Count 5.98 M/mm3 (4.20-5.40); Red Cell Distribution Width 12.9 % (11.6-14.4); White Blood Count 8.9 K/mm3 (4.8-10.8)
[2024-10-27 18:43] LABS: Add Urine Microscopic? YES; Appearance Urine Clear (Clear); Bilirubin Urine 2+ (Negative); Blood Urine Negative (Negative); Color Urine Yellow (Yellow); Glucose Urine UA Negative (Negative); Ketones Urine 1+ (Negative); Leukocyte Esterase Ur Negative LEU/UL (Negative); Nitrate Urine Negative (Negative); Protein Urine Trace (Negative); Specific Grav Ur 1.025 (1.010-1.020); pH Urine 5.5 (5.0-8.0)
[2024-10-27 18:47] LABS: Pregnancy On Board Control Positive; Urine Pregnancy Test Negative
[2024-10-27 18:50] LABS: Amorphous Sediment Urine Few; Bacteria Urine Trace /hpf; Mucus Urine Moderate /lpf; RBC Urine 0-2 /hpf (0-2); Squamous Epithelial Cell Urine Few /hpf (Few); WBC Urine 0-3 /hpf (0-3)
--- NOTE | 2024-10-27 18:50 | PC.NURSE ---
RN attempted for IV, Unsuccessful. HIRAM Hastings attempting at this time.
--- NOTE | 2024-10-27 18:55 | PC.NURSE ---
patient being taken down to CT
--- NOTE | 2024-10-27 18:55 | PC.NURSE ---
Patient being taken down to CT
[2024-10-27 18:56] LABS: INR 1.1; Partial Thromboplastin Time 22.9 Sec (23.9-30.70)
[2024-10-27 18:57] LABS: Alanine Aminotransferase 68 U/L (14-59); Albumin Level 4.5 g/dL (3.4-5.0); Alkaline Phosphatase 63 U/L (46-116); Anion Gap 8 mmol/L (4-12); Aspartate Amino Transferase 29 U/L (15-37); Bilirubin,Total 1.1 mg/dL (0.00-1.00); Blood Urea Nitrogen 15 mg/dL (7-18); Calcium 9.5 mg/dL (8.5-10.1); Carbon Dioxide 31 mmol/L (21-32); Chloride 94 mmol/L (98-108); Estimated CRCL calculation 84 ml/min; Estimated Glomerular Filt Rate 59; Glucose 96 mg/dL (70-99); Osmolality Calculated 276 mOsm/kg (285-295); Potassium 3.3 mmol/L (3.5-5.1); Sodium 133 mmol/L (136-145); Total Protein 8.1 g/dL (6.4-8.2); Triglycerides 114 mg/dL (0-150)
[2024-10-27 18:59] LABS: Lipase 605 U/L (16-77)
[2024-10-27] MEDS: ONDANSETRON INJ 4 MG/2 ML VIAL IV PUSH (19:13)
[2024-10-27] MEDS: SODIUM CHLORIDE 0.9% IV 1,000 ML 999 ML IV CONT (19:13)
[2024-10-27 19:19] VITALS: BP 136/90; PULSE 90; RESP 18; O2SAT 100
--- NOTE | 2024-10-27 19:22 | PC.NURSE ---
Pt called stating IV site hurting, noted infiltrated site w/ swelling. IVF stopped and d/c'd per ERP at this time.
[2024-10-27] MEDS: POTASSIUM CHLORIDE 20 MEQ ER TABLET PO (19:41)
[2024-10-27] MEDS: ONDANSETRON HCL ODT 4 MG TABLET PO (20:00)
[2024-10-27 20:21] VITALS: BP 132/84; PULSE 85; RESP 18; TEMP 36.8; O2SAT 99
--- NOTE | 2024-10-29 12:14 | PC.NURSE ---
preliminary blood culture reviewed, no growth
== END 2024-10-27 20:21 | disposition home or self-care (01) ==
PROVIDERS: Emergency Provider Emergency Medicine; PCP Internal Medicine
DX: K52.9 Noninfective gastroenteritis and colitis, unspecified (principal)
CPT/HCPCS: 36415; 74177; 80053; 81001; 81025; 83690; 84478; 85025; 85610; 85730; 87040; 96361; 96374; 99284; A9270; J2405; J7030; Q9967

== ENCOUNTER 2024-10-30 12:35 | Outpatient (CLI) | payer OTHER, SELFPAY ==
[2024-10-30 12:55] LABS: Basophils Absolute Auto 0.05 K/mm3 (0.00-0.10); Basophils Percent Auto 0.4 % (0.0-1.0); Eosinophils Absolute Auto 0.07 K/mm3 (0.02-0.50); Eosinophils Percent Auto 0.6 % (1.0-6.0); Hematocrit 47.8 % (35.0-49.0); Hemoglobin 16.7 g/dL (12.0-15.0); Immature Granulocyte Absolute 0.08 K/mm3 (0.00-0.00); Immature Granulocyte Percent A 0.7 % (0.0-0.0); Lymphocytes Absolute Auto 3.11 K/mm3 (1.10-4.50); Lymphocytes Percent Auto 27.7 % (18.0-42.0); Mean Corpuscular HGB Conc 34.9 g/dL (32-36); Mean Corpuscular Hemoglobin 26.6 pg (27.0-31.0); Mean Corpuscular Volume 76.1 fL (78.0-102.0); Mean Platelet Volume 9.4 fl (9.2-11.8); Monocytes Absolute Auto 0.79 K/mm3 (0.10-0.90); Neutrophils Absolute Auto 7.14 K/mm3 (1.70-7.20); Neutrophils Percent Auto 63.6 % (50.0-70.0); Platelet Count Result 454 K/mm3 (150-420); Red Blood Count 6.28 M/mm3 (4.20-5.40); Red Cell Distribution Width 12.6 % (11.6-14.4); White Blood Count 11.2 K/mm3 (4.8-10.8)
[2024-10-30 13:23] LABS: Alanine Aminotransferase 83 U/L (14-59); Albumin Level 4.8 g/dL (3.4-5.0); Alkaline Phosphatase 71 U/L (46-116); Amylase 224 U/L (25-115); Anion Gap 11 mmol/L (4-12); Aspartate Amino Transferase 42 U/L (15-37); Bilirubin,Total 1.6 mg/dL (0.00-1.00); Blood Urea Nitrogen 16 mg/dL (7-18); Calcium 9.5 mg/dL (8.5-10.1); Carbon Dioxide 34 mmol/L (21-32); Chloride 90 mmol/L (98-108); Estimated Glomerular Filt Rate 47; Glucose 116 mg/dL (70-99); Magnesium 2.5 mg/dL (1.8-2.4); Osmolality Calculated 282 mOsm/kg (285-295); Potassium 2.9 mmol/L (3.5-5.1); Sodium 135 mmol/L (136-145); Total Protein 8.6 g/dL (6.4-8.2)
[2024-10-30 13:33] LABS: Lipase 674 U/L (16-77)
[2024-10-30 14:05] LABS: GGT 64 U/L (5-55)
[2024-10-30 15:30] LABS: Phosphorus 3.4 mg/dL (3.4-5.5)
[2024-11-01 02:13] LABS: Hepatitis A Antibody IgM NON-REACTIVE (NON-REACTIVE); Hepatitis B Core Antibody NON-REACTIVE (NON-REACTIVE); Hepatitis B Surface Antigen NON-REACTIVE (NON-REACTIVE); Hepatitis C Virus Antibody NON-REACTIVE (NON-REACTIVE)
== END 2024-10-30 12:36 | disposition home or self-care (01) ==
LOC: CHSLAB 12:37
PROVIDERS: PCP Internal Medicine; Visit Provider Internal Medicine
DX: R74.01 Elevation of levels of liver transaminase levels (principal); R11.10 Vomiting, unspecified; K85.90 Acute pancreatitis without necrosis or infection, unspecified
CPT/HCPCS: 36415; 80053; 80074; 82150; 82977; 83690; 83735; 84100; 85025

== ENCOUNTER 2024-11-05 06:02 | Emergency (ER) | payer OTHER, SELFPAY ==
[2024-11-05 06:07] VITALS: BP 126/82; PULSE 88; RESP 18; TEMP 37.1; O2SAT 96
--- OUTSIDE RECORDS SUMMARY | 2024-11-05 06:08 | XMS_ITS | Clinical Summary ---
Author Organization [facility] Address [address] [place] [address] Care Team Providers Care Vp Cardiovascular Service Line Name Role Phone Leo Turner MD Primary Care Provider [phone] Source Comments [facility],non-owned Affiliates and Associated Physician Practices is amultiple site organization consisting of ambulatory clinics and hospital sitesin [place], [place], [place] and [place]. This disclosure is being madepursuant to the Care Everywhere program and may not contain all information available regarding this patient. Last updated 18.[facility] Active Problems Problem Noted Date Diagnosed [...] Mass Index 31.41 05/17/2018 8:25 AM CDT Plan of Treatment Health Maintenance Due Date Last Done Comments HIV SCREENING 2019 HPV VACCINE (1 - 3-dose series) 2019 CHLAMYDIA/GONORRHEA SCREENING 2020 MENINGOCOCCAL (Group B) VACC INE (1 of 2 - Standard) 2020 HEPATITIS C SCREENING 10/19/2022 DTAP/TDAP/TD VACCINES (1 - Tdap) 2023 HEPATITIS B VACCINE (1 of 3 - 19+ 3-dose series) 2023 COVID-19 VACCINE (1 - 2023-2 5 season) 2024 INFLUENZA VACCINE (#1) 2024 DEPRESSION SCREENING 10/04/2024 ZOSTER VACCINE (1 of 2) 2054 HIB VACCINE Aged Out No longer eligi ble based on patient's age to complete this topic MENINGOCOCCAL VACCINE Aged Out No johny elisabet eligible based on patient's age to complete this topic PNEUMOCOCCAL VACCINE Aged Out No long er eligible based on patient's age to complete this topic Care Teams Vp Cardiovascular Service Line Relationship Specialty Start Date End Date Leo Turner MD [address] [place] [address] PCP - General Internal Medicine 05/19/18
--- OUTSIDE RECORDS SUMMARY | 2024-11-05 06:08 | XMS_ITS | Encounter Summary ---
Author Organization [facility] Address [address] [place] [address]. [place] [address] [place] [address] Care Team Providers Care Machine Heel Sprayer Name Role Phone Leo Turner MD Primary Care Provider [phone] Reason for Visit * Reason Comments Vomiting Encounter Details Date Type Department Care Team (Late st Contact Info) Description 11/03/2024 2:38 PM RUBBER TUBING SPLICER - 11/03/2024 6:07 PM RUBBER TUBING SPLICER Emergency [facility] [address] [place] [address] Raffaele Costa MD [address] [place] [phone] Vomiting Discharge Disposition: Home or Self Care (Routine Discharge) Social History Tobacco Use Types Packs/Day Years Used Date Smoking Tobacco: Never Smokeless Tobacco: Never Tobacco Cessation:Counseling Given: Not Answered Alcohol Use Standard Drinks/Week Comments Never 0 (1 standard drink = 0.6 oz pur e alcohol) Comments No Sex and Gender Information Value Date Recorded Sex Assigned at Female 11/03/2024 3:46 PM RUBBER TUBING SPLICER Legal Sex Female 5:50 PM RUBBER TUBING SPLICER Gender Identity Not on file Sexual Orientation Not on file documented as of this encounter Last Filed Vital Signs Vital Sign Reading Time Taken Comments Blood Pressure 139/102 11/03/2024 6:00 PM RUBBER TUBING SPLICER Pulse 89 11/03/2024 6:00 PM RUBBER TUBING SPLICER Temperature 37.3 ??C (99.2 ??F) 11/03/2024 2:49 PM CS T Respiratory Rate 18 11/03/2024 2:49 PM RUBBER TUBING SPLICER Oxygen Saturation 100% 11/03/2024 6:00 PM RUBBER TUBING SPLICER Inhaled Oxygen Concentration - - Weight 109.4 kg (241 lb 2 oz) 11/03/2024 2:49 PM RUBBER TUBING SPLICER Height 162.6 cm (5' 4 ) 11/03/2024 2:49 PM RUBBER TUBING SPLICER Body Mass Index 41.39 11/03/2024 2:49 PM RUBBER TUBING SPLICER documented in this encounter Discharge Instructions * Discharge Instructions* Raffaele Costa MD - 11/03/2024 6:06 PM RUBBER TUBING SPLICER Continue zofran as needed. Return to ER for any worsening symptoms. ER TUBING SPLICER * Attachments The following attachments cannot be sent through Care Everywhere. * Nausea and Vomiting Discharge Instructions, Adult (Romanian) documented in this encounter Medications at Time of Discharge famotidine (PEPCID) 40 MG tablet Take 1 tablet (40 mg total) by mouth daily. 10/27/2024 fluvoxaMINE (LUVOX) 100 MG tablet TAKE 1 TABLET BY ORAL ROUTE EVERY DAY EVERY MORNING 09/15/2024 hydrOXYzine (VISTARIL) 50 MG capsule TAKE 1 CAPSULE BY MOUTH TWICE DAILY NEEDED FOR ANXIETY 10/12/2024 ondansetron (ZOFRAN-ODT) 4 MG disintegrating tablet PLEASE SEE ATTACHED FOR DETAILED DIRECTIONS 10/27/2024 potassium chloride CR (K-TAB) 10 MEQ Tab CR tablet take 1 tablet by oral route 2 times per day with food 10/27/2024 pravastatin (PRAVACHOL) 20 MG tablet Take 1 tablet (20 mg total) by mouth daily. DIRECTED 08/23/2024 documented as of this encounter ED Notes * April Posey RN - 11/03/2024 2:47 PM CST Pt here with c/o vomiting on and off since 10/23. Pt reports she has had several visits to ER and to PCP with no dx. States PCP is attempting to schedule scope. Pt states she has Zofran at home, has not taken this for several days. Pt reports she had a two dayperiod of no vomiting and then resumed today. Pt reports she ate without difficulty yesterday. BM's normal. Pt states she had colitis last month. ER TUBING SPLICER ER TUBING SPLICER documented in this encounter Plan of Treatment Not on file documented as of this encounter Procedures Procedure Name Priority Date/Time Associated Diagnosis Comments COMPREHENSIVE METABOLIC PANEL STAT 11/03/2024 4:09 PM RUBBER TUBING SPLICER CBC W/DIFF AUTOMATED STAT 11/03/2024 4:09 PM RUBBER TUBING SPLICER LIPASE STAT 11/03/2024 4:09 PM RUBBER TUBING SPLICER DRUG SCREEN RAPID STAT 11/03/2024 4:0 5 PM RUBBER TUBING SPLICER HC URINALYSIS AUTO W/MICRO STAT 11/03/2024 4:05 PM RUBBER TUBING SPLICER TEST URINE STAT 11/03/2024 4:05 PM RUBBER TUBING SPLICER documented in this encounter Results * (ABNORMAL) LIPASE (11/03/2024 4:09 PM RUBBER TUBING SPLICER) LIPASE 163(H) 16 - 77 UNITS/L 11/03/2024 4:41 PM RUBBER TUBING SPLICER [facility] 11/03/2024 4:09 PM RUBBER TUBING SPLICER Raffaele Costa MD LABORATORY Final Result [facility] [place] [address], * (ABNORMAL) COMPREHENSIVE METABOLIC PANEL (11/03/2024 4:09 PM RUBBER TUBING SPLICER) SODIUM S/P/B 136 136 - 145 MMOL/L 11/03/2024 4:41 PM RUBBER TUBING SPLICER [facility] POTASSIUM S/P/B 4.4 3.5 - 5.1 MMOL/L 11/03/2024 4:41 PM RUBBER TUBING SPLICER [facility] Comment:SLIGHT HEMOLYSIS, RE SULT MAY BE AFFECTED. CHLORIDE S/P/B 100 98 - 107 MMOL/L 11/03/2024 4:41 PM [facility] CO2 26.3 21.0 - 32.0 MMOL/L 11/03/2024 4:41 PM [facility] GLUCOSE 101(H) 70 - 99 MG/DL 11/03/2024 4:41 PM [facility] Comment: FASTING GLUCOSE 100 TO 125 MG/DL IS CONSISTENT WITH IMPAIRED FASTING GLUCOSE. FASTING GLUCOSE >125 MG/DL IS CONSISTENT WITH DIABETES. RANDOM GLUCOSE >200 MG/DL WITH HYPERGLYCEMIC SYMPTOMS IS CONSISTENT WITH DIABETES. PER ADA GUIDELINES BUN 4(L) 6 - 24 MG/DL 11/03/2024 4:41 PM [facility] CREATININE S/P/B 1.09(H) 0.55 - 1.02 MG/DL 11/03/2024 4:41 PM [facility] CALCIUM S/P/B 8.9 8.4 - 10.5 MG/DL 11/03/2024 4:41 PM [facility] BILIRUBIN TOTAL S/P/B 0.7 0.2 - 1.0 MG/DL 11/03/2024 4:41 PM [facility] Comment: THIS ASSAY IS NOT RECOMMENDED FOR PATIENTS UNDERGOING TREATMENT WITH ELTROMBOPAG DUE TO THE POTENTIAL FOR FALSELY ELEVATED RESULTS. ALKALINE PHOSPHATASE S/P/B 64 52 - 144 U/L 11/03/2024 4:41 PM [facility] AST 42(H) 15 - 37 U/L 11/03/2024 4:41 PM [facility] ALT 99(H) 14 - 59 U/L 11/03/2024 4:41 PM [facility] TOTAL PROTEIN S/P/B 7.4 6.4 - 8.2 G/DL 11/03/2024 4:41 PM [facility] ALBUMIN S/P/B 4.1 3.4 - 5.0 G/DL 11/03/2024 4:41 PM [facility] ANION GAP 9.7 5.0 - 15.0 MMOL/L 11/03/2024 4:41 PM [facility] OSMOLALITY (CALC) 279 MOSM/KG 025 4:41 PM [facility] Comment:REFERENCE RANGE NOT ESTABLISHED GFR ESTIMATE 75(L) >89 ML/MIN/1. 73 M2 11/03/2024 4:41 PM [facility] GFR NOTES GFR REFERENCE S: 11/03/2024 4:41 PM [facility] Comment: THE ESTIMATED GFR IS CALCULATED USING THE 2020 CKD-EPI EQUATION. THE FOLLOWING CATEGORIES FOR GRADING RENAL FUNCTION ARE RECOMMENDED BY THE INTERNATIONAL SOCIETY OF NEPHROLOGY (KDIGO 2012 CLINICAL PRACTICE GUIDELINE). G1,NORMAL OR HIGH: >89 ml/min/1.73 m2 G2,MILDLY DECREASED: 60-89 ml/min/1.73 m2 G3A,MILDLY TO MODERATELY DECREASED: 45-59 ml/min/1.73 m2 G3B,MODERATELY TO SEVERELY DECREASED: 30-44 ml/min/1.73 m2 G4,SEVERELY DECREASED: 15-29 ml/min/1.73 m2 G5,KIDNEY FAILURE: <15 ml/min/1.73 m2 11/03/2024 4:09 PM RUBBER TUBING SPLICER us Raffaele Costa MD LABORATORY Final Result [facility] [address] [place] [address], * (ABNORMAL) CBC W/DIFF AUTOMATED (11/03/2024 4:09 PM RUBBER TUBING SPLICER) WBC 8.88 4.00 - 10.80 x10'3/uL 11/03/2024 4:15 PM [facility] RBC 5.59(H) 4.10 - 5.40 x10'6/uL 11/03/2024 4:15 PM [facility] HGB 15.2 12.0 - 16.0 G/DL 11/03/2024 4:15 PM [facility] HCT 43.5 36.0 - 47.0 % 11/03/2024 4:15 PM [facility] MCV 77.8(L) 78.0 - 100.0 FL 11/03/2024 4:15 PM [facility] MCH 27.2 27.0 - 31.0 PG 11/03/2024 4:15 PM [facility] MCHC 34.9 33.0 - 36.0 G/DL 11/03/2024 4:15 PM [facility] RDW 12.8 11.5 - 14.5 % 11/03/2024 4:15 PM [facility] PLT 335 150 - 350 x10'3/uL 11/03/2024 4:15 PM [facility] MPV 9.7 7.4 - 10.4 FL 11/03/2024 4:15 PM [facility] CBC COMMENT NORMAL REFERENCE RANGE NOT ESTABLISHED FOR THE PROPORTIONAL LEUKOCYTE DIFFERENTIAL. 11/03/2024 4:15 PM [facility] NEUTROPHILS % 81.3 % 11/03/2024 4:15 PM [facility] LYMPHOCYTES % 14.6 % 11/03/2024 4:15 PM [facility] MONOCYTES % 2.7 % 11/03/2024 4:15 PM [facility] EOSINOPHILS % 0.3 % 11/03/2024 4:15 PM [facility] BASOPHILS % 0.5 % 11/03/2024 4:15 PM [facility] IMMATURE GRANS % 0.6 % 11/03/19 4:15 PM [facility] NRBC % 0.0 % 11/03/2024 4:15 PM [facility] ABS. NEUTROPHILS 7.22 1.60 - 8.30 x10'3/uL 11/03/2024 4:15 PM [facility] ABS. LYMPHOCYTES 1.30 0.80 - 4.70 x10'3/uL 11/03/2024 4:15 PM [facility] ABS. MONOCYTES 0.24 0.00 - 1.50 x10'3/uL 11/03/2024 4:15 PM [facility] ABS. EOSINOPHILS 0.03 0.00 - 0.40 x10'3/uL 11/03/2024 4:15 PM RUBBER TUBING SPLICER [facility] ABS. BASOPHILS 0.04 0.00 - 0.20 x10'3/uL 11/03/2024 4:15 PM RUBBER TUBING SPLICER [facility] ABS. IMMATURE GRANULOCYTES 0.05(H) 0.00 - 0.03 x10'3/uL 11/03/2024 4:15 PM RUBBER TUBING SPLICER [facility] ABS. NUCLEATED RBC'S 0.00 0.00 - 0.01 x10'3/uL 11/03/2024 4:15 PM RUBBER TUBING SPLICER [facility] 11/03/2024 4:09 PM RUBBER TUBING SPLICER us Raffaele Costa MD LABORATORY Final Result [facility] [employer] [place] [address], * (ABNORMAL) DRUG SCREEN RAPID (11/03/2024 4:05 PM RUBBER TUBING SPLICER) CANNABINOIDS SCREEN (U) POSITIVE(A) NEGATIVE 11/03/2024 6:40 PM RUBBER TUBING SPLICER [facility] PHENCYCLIDINE PCP (U) NEGATIVE NEGATIVE 11/03/2024 6:40 PM RUBBER TUBING SPLICER [facility] COCAINE METABOLITES (U) NEGATIVE NEGATIVE 11/03/2024 6:40 PM RUBBER TUBING SPLICER [facility] METHAMPHETAMINE SCREEN (U) NEGATIVE NEGATIVE 11/03/2024 6:40 PM RUBBER TUBING SPLICER [facility] OPIATE SCREEN (U) NEGATIVE NEGATIVE 025 6:40 PM RUBBER TUBING SPLICER [facility] AMPHETAMINE SCREEN (U) NEGATIVE NEGATIVE 11/03/2024 6:40 PM RUBBER TUBING SPLICER [facility] BENZODIAZEPINES SCREEN (U) NEGATIVE NEGATIVE 11/03/2024 6:40 PM RUBBER TUBING SPLICER [facility] TRICYCLIC ANTIDEPRESSANT SCREEN (U) NEGATIVE NEGATIVE 11/03/2024 6:40 PM RUBBER TUBING SPLICER [facility] METHADONE (U) NEGATIVE NEGATIVE 11/03/2024 6:40 PM RUBBER TUBING SPLICER [facility] BARBITURATES SCREEN (U) NEGATIVE NEGATIVE 11/03/2024 6:40 PM RUBBER TUBING SPLICER [facility] OXYCODONE SCREEN (U) NEGATIVE NEGATIVE 11/03/2024 6:40 PM RUBBER TUBING SPLICER [facility] URINE TOX COMMENT THIS TEST METHODOLOGY IS DESIGNED AND OFFERED A RAPID TURNAROUND, QUALITATIVE SCREENING PROCEDURE TO AID IN THE IMMEDIATE MEDICAL ASSESSMENT OF PATIENTS SUSPECTED OF SUBSTANCE ABUSE. 11/03/2024 5:08 PM RUBBER TUBING SPLICER [facility] Comment: CLINICAL CONSIDERATION AND PROFESSIONAL JUDGMENT MUST BE APPLIED TO ANY DRUG OF ABUSE TEST RESULT, BOTH POSITIVE AND NEGATIVE. CONFIRMATORY QUANTITATIVE RESULTS ARE AVAILABLE THROUGH OUR REFERENCE LAB[facility]. URINE SPECIMEN / Unknown 11/03/2024 4:05 PM RUBBER TUBING SPLICER us Raffaele Costa MD URINE ORDERABLES Final Result Performing Organization Address City/[facility]/[place] [address], * TEST URINE (11/03/2024 4:05 PM RUBBER TUBING SPLICER) URINE HCG TEST NEGATIVE 11/03/2024 4:42 PM RUBBER TUBING SPLICER [facility] SPECIFIC GRAVITY 1.025 11/03/2024 4:42 PM RUBBER TUBING SPLICER [facility] URINE SPECIMEN FROM URETHRA / Unknown 11/03/2024 4:05 PM RUBBER TUBING SPLICER us Raffaele Costa MD URINE ORDERABLES Final Result Performing Organization Address City/[facility]/ZIP Co de Phone Number [facility] [address] [place] [address], [place] [phone] * (ABNORMAL) URINALYSIS (11/03/2024 4:05 PM RUBBER TUBING SPLICER) COLOR (U) YELLOW 11/03/2024 4:47 PM RUBBER TUBING SPLICER [facility] TRANSPARENCY CLEAR 11/03/2024 4:47 PM RUBBER TUBING SPLICER [facility] SPECIFIC GRAVITY (U) 1.025 1.000 - 1.025 11/03/2024 4:47 PM RUBBER TUBING SPLICER [facility] U PH 7.0 5.0 - 8.0 11/03/2024 4:47 PM RUBBER TUBING SPLICER [facility] LEUKOCYTES (U) NEGATIVE NEGATIVE 11/03/2024 4:47 PM RUBBER TUBING SPLICER [facility] NITRITES NEGATIVE NEGATIVE 11/03/2024 4:47 PM RUBBER TUBING SPLICER [facility] PROTEIN RANDOM (U) NEGATIVE NEGATIVE 11/03/2024 4:47 PM RUBBER TUBING SPLICER [facility] GLUCOSE (U) NEGATIVE NEGATIVE 11/03/2024 4:47 PM RUBBER TUBING SPLICER [facility] KETONES MG/DL (U) 2+(A) NEGATIVE 11/03/2024 4:47 PM RUBBER TUBING SPLICER [facility] UROBILINOGEN 0.2 <1.0 EU/DL 11/03/2024 4:47 PM RUBBER TUBING SPLICER [facility] BILIRUBIN (U) NEGATIVE NEGATIVE 11/03/2024 4:47 PM RUBBER TUBING SPLICER [facility] BLOOD (U) 2+(A) NEGATIVE 11/03/2024 4:47 PM RUBBER TUBING SPLICER [facility] WBC/HPF 0-5 0 - 5 /HPF 11/03/2024 4:47 PM RUBBER TUBING SPLICER [facility] RBC/HPF 5-10(A) 0 - 5 /HPF 11/03/2024 4:47 PM RUBBER TUBING SPLICER [facility] EPI/LPF RARE /LPF 11/03/2024 4:47 PM RUBBER TUBING SPLICER [facility] BACTERIA (U) 1+ /HPF 11/03/2024 4:47 PM RUBBER TUBING SPLICER [facility] OTHER CASTS (U) HYALINE /LPF 4:47 PM RUBBER TUBING SPLICER [facility] Comment:10-20 URINE SPECIMEN OBTAINED BY CLEAN CATCH PROCEDURE / Unknown 11/03/2024 4:05 PM RUBBER TUBING SPLICER us Raffaele Costa MD URINE ORDERABLES Final Result [facility] [address] [place] [address], documented in this encounter Visit Diagnoses Diagnosis Vomiting- Primary Vomiting alone documented in this encounter Administered Medications Inactive Administered Medications - up to 3 most recent administrations Medication Order MAR Action Action Date Dose Rate Site ondansetron (ZOFRAN) injection 4 mg 4 mg, Intravenous, Once, 1 dose, On Wed11/03/24 at 1600, IV push over 2-5 minutes. Given 11/03/2024 4:22 PM RUBBER TUBING SPLICER 4 mg sodium chloride 0.9% bolus infusion 1,000 mL 1,000 mL, Intravenous, Administer over 60 Minutes, Once, 1 dose, On Wed11/03/24 at 1600 New Bag 11/03/2024 4:21 PM RUBBER TUBING SPLICER 1,000 mLs 1000 mL/hr documented in this encounter Active and Recently Administered Medications Times are shown in RUBBER TUBING SPLICER. Scheduled Medication Order 11/01/2024 11/02/2024 11/03/2024 ondansetron (ZOFRAN) injection 4 mg (COMPLETED) 4 mg, Intravenous, Once, 1 dose, On Wed11/03/24 at 1600, IV push over 2-5 minutes. 1622 (Given - Provid er: Tianna Chirinos RN) sodium chloride 0.9% bolus infusion 1,000 mL (COMPLETED) 1,000 mL, Intravenous, Administer over 60 Minutes, Once, 1 dose, On Wed11/03/24 at 1600 1621 (New Bag - Prov ider: Tianna Chirinos RN)1721 (Infusion Stop Time - Provider: Kayla Adams RN) documented in this encounter Care Teams Machine Heel Sprayer Relationship Specialty Start Date End Date Leo Turner MD [address] [place] [id number] PCP - General INTERNAL MEDICINE 11/03/24 documented as of this encounter
--- OUTSIDE RECORDS SUMMARY | 2024-11-05 06:08 | XMS_ITS | Clinical Summary ---
Author Organization [facility] Address Replaced by [facility] [place] [address] [place] [address] Care Team Providers Care Quail Farmer Name Role Phone Leo Turner MD Primary Care Provider [phone] Allergies Active Allergy Reactions Criticality Noted Date Comments Tape Rash Low 11/03/2024 Pineapple Rash Low 11/03/2024 Medications famotidine (PEPCID) 40 MG tablet Take 1 tablet (40 mg total) by mouth daily. 5 Active fluvoxaMINE (LUVOX) 100 MG tablet TAKE 1 TABLET BY ORAL ROUTE EVERY DAY EVERY MORNING 4 Active hydrOXYzine (VISTARIL) 50 MG capsule TAKE 1 CAPSULE BY MOUTH TWICE DAILY NEEDED FOR ANXIETY 5 Active ondansetron (ZOFRAN-ODT) 4 MG disintegrating tablet PLEASE SEE ATTACHED FOR DETAILED DIRECTIONS 5 Active potassium chloride CR (K-TAB) 10 MEQ Tab CR tablet take 1 tablet by oral route 2 times per day with food 5 Active pravastatin (PRAVACHOL) 20 MG tablet Take 1 tablet (20 mg total) by mouth daily. DIRECTED 4 Active Encounters Date Type Department Care Team Description 11/03/2024 2:38 PM CRIMINAL PROFILER - 11/03/2024 6:07 PM [facility] Emergency [place] [facility] [address] [place] [address] [place] [address] Raffaele Costa MD Vomiting Discharge Disposition: Home or Self Care (Routine Discharge) 11/03/2024 Travel from Last 3 Months Social History Tobacco Use Types Packs/Day Years Used Date Smoking Tobacco: Never Smokeless Tobacco: Never Tobacco Cessation:Counseling Given: Not Answered Alcohol Use Standard Drinks/Week Comments Never 0 (1 standard drink = 0.6 oz pur e alcohol) Comments No Sex and Gender Information Value Date Recorded Sex Assigned at Female 11/03/2024 3:46 PM CRIMINAL PROFILER Legal Sex Female 5:50 PM CRIMINAL PROFILER Gender Identity Not on file Sexual Orientation Not on file Last Filed Vital Signs Vital Sign Reading Time Taken Comments Blood Pressure 139/102 11/03/2024 6:00 PM CRIMINAL PROFILER Pulse 89 11/03/2024 6:00 PM CRIMINAL PROFILER Temperature 37.3 ??C (99.2 ??F) 11/03/2024 2:49 PM CS T Respiratory Rate 18 11/03/2024 2:49 PM CRIMINAL PROFILER Oxygen Saturation 100% 11/03/2024 6:00 PM CRIMINAL PROFILER Inhaled Oxygen Concentration - - Weight 109.4 kg (241 lb 2 oz) 11/03/2024 2:49 PM CRIMINAL PROFILER Height 162.6 cm (5' 4 ) 11/03/2024 2:49 PM CRIMINAL PROFILER Body Mass Index 41.39 11/03/2024 2:49 PM CRIMINAL PROFILER Plan of Treatment Health Maintenance Due Date Last Done Comments Annual Physical 2007 HPV Vaccines (1 - 3-dose series) 2019 Meningococcal B Vaccine (1 o f 2 - Standard) 2020 Hepatitis C 2022 DTaP, Tdap and Td Vaccines ( 1 - Tdap) 2023 Hepatitis B Vaccines (1 of 3 - 19+ 3-dose series) 2023 COVID-19 Vaccine (1 - 2023-2 5 season) 2024 Influenza Adult [...] on patient's age to complete this topic Procedures Procedure Name Priority Date/Time Associated Diagnosis Comments LIPASE STAT 11/03/2024 4:09 PM CRIMINAL PROFILER COMPREHENSIVE METABOLIC PANEL STAT 11/03/2024 4:09 PM CRIMINAL PROFILER CBC W/DIFF AUTOMATED STAT 11/03/2024 4:09 PM CRIMINAL PROFILER DRUG SCREEN RAPID STAT 11/03/2024 4:0 5 PM CRIMINAL PROFILER TEST URINE STAT 11/03/2024 4:05 PM CRIMINAL PROFILER HC URINALYSIS AUTO W/MICRO STAT 11/03/2024 4:05 PM CRIMINAL PROFILER from Last 3 Months Results * (ABNORMAL) COMPREHENSIVE METABOLIC PANEL (11/03/2024 4:09 PM CRIMINAL PROFILER) SODIUM S/P/B 136 136 - 145 MMOL/L 11/03/2024 4:41 PM CRIMINAL PROFILER [facility] POTASSIUM S/P/B 4.4 3.5 - 5.1 MMOL/L 11/03/2024 4:41 PM CRIMINAL PROFILER [facility] Comment:SLIGHT HEMOLYSIS, RE SULT MAY BE AFFECTED. CHLORIDE S/P/B 100 98 - 107 MMOL/L 11/03/2024 4:41 PM CRIMINAL PROFILER [facility] CO2 26.3 21.0 - 32.0 MMOL/L 11/03/2024 4:41 PM [facility] GLUCOSE 101(H) 70 - 99 MG/DL 11/03/2024 4:41 PM [facility] Comment: FASTING GLUCOSE 100 TO 125 MG/DL IS CONSISTENT WITH IMPAIRED FASTING GLUCOSE. FASTING GLUCOSE >125 MG/DL IS CONSISTENT WITH DIABETES. RANDOM GLUCOSE >200 MG/DL WITH HYPERGLYCEMIC SYMPTOMS IS CONSISTENT WITH DIABETES. PER ADA GUIDELINES BUN 4(L) 6 - 24 MG/DL 11/03/2024 4:41 PM CRIMINAL PROFILER [facility] CREATININE S/P/B 1.09(H) 0.55 - 1.02 MG/DL 11/03/2024 4:41 PM [facility] CALCIUM S/P/B 8.9 8.4 - 10.5 MG/DL 11/03/2024 4:41 PM [facility] BILIRUBIN TOTAL S/P/B 0.7 0.2 - 1.0 MG/DL 11/03/2024 4:41 PM [facility] Comment: THIS ASSAY IS NOT RECOMMENDED FOR PATIENTS UNDERGOING TREATMENT WITH ELTROMBOPAG DUE TO THE POTENTIAL FOR FALSELY ELEVATED RESULTS. ALKALINE PHOSPHATASE S/P/B 64 52 - 144 U/L 11/03/2024 4:41 PM [facility] AST 42(H) 15 - 37 U/L 11/03/2024 4:41 PM [facility] ALT 99(H) 14 - 59 U/L 11/03/2024 4:41 PM [facility] TOTAL PROTEIN S/P/B 7.4 6.4 - 8.2 G/DL 11/03/2024 4:41 PM [facility] ALBUMIN S/P/B 4.1 3.4 - 5.0 G/DL 11/03/2024 4:41 PM [facility] ANION GAP 9.7 5.0 - 15.0 MMOL/L 11/03/2024 4:41 PM [facility] OSMOLALITY (CALC) 279 MOSM/KG 025 4:41 PM [facility] Comment:REFERENCE RANGE NOT ESTABLISHED GFR ESTIMATE 75(L) >89 ML/MIN/1. 73 M2 11/03/2024 4:41 PM [facility] GFR NOTES GFR REFERENCE S: 11/03/2024 4:41 PM [facility] Comment: THE ESTIMATED GFR IS CALCULATED [...] FAILURE: <15 ml/min/1.73 m2 11/03/2024 4:09 PM CRIMINAL PROFILER us Raffaele Costa MD LABORATORY Final Result [facility] [address] [place] [address], * (ABNORMAL) CBC W/DIFF AUTOMATED (11/03/2024 4:09 PM CRIMINAL PROFILER) WBC 8.88 4.00 - 10.80 x10'3/uL 11/03/2024 4:15 PM CRIMINAL PROFILER [facility] RBC 5.59(H) 4.10 - 5.40 x10'6/uL 11/03/2024 4:15 PM CRIMINAL PROFILER [facility] HGB 15.2 12.0 - 16.0 G/DL 11/03/2024 4:15 PM CRIMINAL PROFILER [facility] HCT 43.5 36.0 - 47.0 % 11/03/2024 4:15 PM CRIMINAL PROFILER [facility] MCV 77.8(L) 78.0 - 100.0 FL 11/03/2024 4:15 PM CRIMINAL PROFILER [facility] MCH 27.2 27.0 - 31.0 PG 11/03/2024 4:15 PM CRIMINAL PROFILER [facility] MCHC 34.9 33.0 - 36.0 G/DL 11/03/2024 4:15 PM CRIMINAL PROFILER [facility] RDW 12.8 11.5 - 14.5 % 11/03/2024 4:15 PM CRIMINAL PROFILER [facility] PLT 335 150 - 350 x10'3/uL 11/03/2024 4:15 PM CRIMINAL PROFILER [facility] MPV 9.7 7.4 - 10.4 FL 11/03/2024 4:15 PM CRIMINAL PROFILER [facility] CBC COMMENT NORMAL REFERENCE RANGE NOT ESTABLISHED FOR THE PROPORTIONAL LEUKOCYTE DIFFERENTIAL. 11/03/2024 4:15 PM CRIMINAL PROFILER [facility] NEUTROPHILS % 81.3 % 11/03/2024 4:15 PM CRIMINAL PROFILER [facility] LYMPHOCYTES % 14.6 % 11/03/2024 4:15 PM CRIMINAL PROFILER [facility] MONOCYTES % 2.7 % 11/03/2024 4:15 PM CRIMINAL PROFILER [facility] EOSINOPHILS % 0.3 % 11/03/2024 4:15 PM CRIMINAL PROFILER [facility] BASOPHILS % 0.5 % 11/03/2024 4:15 PM CRIMINAL PROFILER [facility] IMMATURE GRANS % 0.6 % 11/03/19 4:15 PM CRIMINAL PROFILER [facility] NRBC % 0.0 % 11/03/2024 4:15 PM CRIMINAL PROFILER [facility] ABS. NEUTROPHILS 7.22 1.60 - 8.30 x10'3/uL 11/03/2024 4:15 PM CRIMINAL PROFILER [facility] ABS. LYMPHOCYTES 1.30 0.80 - 4.70 x10'3/uL 11/03/2024 4:15 PM CRIMINAL PROFILER [facility] ABS. MONOCYTES 0.24 0.00 - 1.50 x10'3/uL 11/03/2024 4:15 PM CRIMINAL PROFILER [facility] ABS. EOSINOPHILS 0.03 0.00 - 0.40 x10'3/uL 11/03/2024 4:15 PM CRIMINAL PROFILER [facility] ABS. BASOPHILS 0.04 0.00 - 0.20 x10'3/uL 11/03/2024 4:15 PM CRIMINAL PROFILER [facility] ABS. IMMATURE GRANULOCYTES 0.05(H) 0.00 - 0.03 x10'3/uL 11/03/2024 4:15 PM CRIMINAL PROFILER [facility] ABS. NUCLEATED RBC'S 0.00 0.00 - 0.01 x10'3/uL 11/03/2024 4:15 PM CRIMINAL PROFILER [facility] 11/03/2024 4:09 PM CRIMINAL PROFILER us Raffaele Costa MD LABORATORY Final Result [facility] [address] [place] [address], * (ABNORMAL) LIPASE (11/03/2024 4:09 PM CRIMINAL PROFILER) LIPASE 163(H) 16 - 77 UNITS/L 11/03/2024 4:41 PM CRIMINAL PROFILER [facility] 11/03/2024 4:09 PM CRIMINAL PROFILER us Raffaele Costa MD LABORATORY Final Result [facility] [address] [place] [address], * (ABNORMAL) DRUG SCREEN RAPID (11/03/2024 4:05 PM CRIMINAL PROFILER) CANNABINOIDS SCREEN (U) POSITIVE(A) NEGATIVE 11/03/2024 6:40 PM CRIMINAL PROFILER [facility] PHENCYCLIDINE PCP (U) NEGATIVE NEGATIVE 11/03/2024 6:40 PM CRIMINAL PROFILER [facility] COCAINE METABOLITES (U) NEGATIVE NEGATIVE 11/03/2024 6:40 PM CRIMINAL PROFILER [facility] METHAMPHETAMINE SCREEN (U) NEGATIVE NEGATIVE 11/03/2024 6:40 PM CRIMINAL PROFILER [facility] OPIATE SCREEN (U) NEGATIVE NEGATIVE 025 6:40 PM CRIMINAL PROFILER [facility] AMPHETAMINE SCREEN (U) NEGATIVE NEGATIVE 11/03/2024 6:40 PM CRIMINAL PROFILER [facility] BENZODIAZEPINES SCREEN (U) NEGATIVE NEGATIVE 11/03/2024 6:40 PM CRIMINAL PROFILER [facility] TRICYCLIC ANTIDEPRESSANT SCREEN (U) NEGATIVE NEGATIVE 11/03/2024 6:40 PM CRIMINAL PROFILER [facility] METHADONE (U) NEGATIVE NEGATIVE 11/03/2024 6:40 PM CRIMINAL PROFILER [facility] BARBITURATES SCREEN (U) NEGATIVE NEGATIVE 11/03/2024 6:40 PM CRIMINAL PROFILER [facility] OXYCODONE SCREEN (U) NEGATIVE NEGATIVE 11/03/2024 6:40 PM CRIMINAL PROFILER [facility] URINE TOX COMMENT THIS TEST METHODOLOGY IS DESIGNED AND OFFERED A RAPID TURNAROUND, QUALITATIVE SCREENING PROCEDURE TO AID IN THE IMMEDIATE MEDICAL ASSESSMENT OF PATIENTS SUSPECTED OF SUBSTANCE ABUSE. 11/03/2024 5:08 PM CRIMINAL PROFILER [facility] Comment: CLINICAL CONSIDERATION AND PROFESSIONAL JUDGMENT MUST BE APPLIED TO ANY DRUG OF ABUSE TEST RESULT, BOTH POSITIVE AND NEGATIVE. CONFIRMATORY QUANTITATIVE RESULTS ARE AVAILABLE THROUGH OUR REFER[facility]. URINE SPECIMEN / Unknown 11/03/2024 4:05 PM CRIMINAL PROFILER us Raffaele Costa MD URINE ORDERABLES Final Result [facility] [address] [place] [address], * (ABNORMAL) URINALYSIS (11/03/2024 4:05 PM CRIMINAL PROFILER) COLOR (U) YELLOW 11/03/2024 4:47 PM CRIMINAL PROFILER [facility] TRANSPARENCY CLEAR 11/03/2024 4:47 PM CRIMINAL PROFILER [facility] SPECIFIC GRAVITY (U) 1.025 1.000 - 1.025 11/03/2024 4:47 PM CRIMINAL PROFILER [facility] U PH 7.0 5.0 - 8.0 11/03/2024 4:47 PM CRIMINAL PROFILER [facility] LEUKOCYTES (U) NEGATIVE NEGATIVE 11/03/2024 4:47 PM CRIMINAL PROFILER [facility] NITRITES NEGATIVE NEGATIVE 11/03/2024 4:47 PM CRIMINAL PROFILER [facility] PROTEIN RANDOM (U) NEGATIVE NEGATIVE 11/03/2024 4:47 PM CRIMINAL PROFILER [facility] GLUCOSE (U) NEGATIVE NEGATIVE 11/03/2024 4:47 PM CRIMINAL PROFILER [facility] KETONES MG/DL (U) 2+(A) NEGATIVE 11/03/2024 4:47 PM CRIMINAL PROFILER [facility] UROBILINOGEN 0.2 <1.0 EU/DL 11/03/2024 4:47 PM CRIMINAL PROFILER [facility] BILIRUBIN (U) NEGATIVE NEGATIVE 11/03/2024 4:47 PM CRIMINAL PROFILER [facility] BLOOD (U) 2+(A) NEGATIVE 11/03/2024 4:47 PM CRIMINAL PROFILER [facility] WBC/HPF 0-5 0 - 5 /HPF 11/03/2024 4:47 PM CRIMINAL PROFILER [facility] RBC/HPF 5-10(A) 0 - 5 /HPF 11/03/2024 4:47 PM CRIMINAL PROFILER [facility] EPI/LPF RARE /LPF 11/03/2024 4:47 PM CRIMINAL PROFILER [facility] BACTERIA (U) 1+ /HPF 11/03/2024 4:47 PM CRIMINAL PROFILER [facility] OTHER CASTS (U) HYALINE /LPF 4:47 PM CRIMINAL PROFILER [facility] Comment:10-20 URINE SPECIMEN OBTAINED BY CLEAN CATCH PROCEDURE / Unknown 11/03/2024 4:05 PM CRIMINAL PROFILER us Raffaele Costa MD URINE ORDERABLES Final Result Performing Organization Address City/[facility]/ZIP Co de Phone Number [facility] [address] [place], [place] [address], [place] [phone] * TEST URINE (11/03/2024 4:05 PM CRIMINAL PROFILER) URINE HCG TEST NEGATIVE 11/03/2024 4:42 PM CRIMINAL PROFILER [facility] SPECIFIC GRAVITY 1.025 11/03/2024 4:42 PM CRIMINAL PROFILER [facility] URINE SPECIMEN FROM URETHRA / Unknown 11/03/2024 4:05 PM CRIMINAL PROFILER us Raffaele Costa MD URINE ORDERABLES Final Result Performing Organization Address City/[facility]/ZIP Co de Phone Number [facility] [address] [place] [address], from Last 3 Months Insurance Care Teams Quail Farmer Relationship Specialty Start Date End Date Leo Turner MD [address] [place] [address] PCP - General INTERNAL MEDICINE 11/03/24
--- OUTSIDE RECORDS SUMMARY | 2024-11-05 06:08 | XMS_ITS | Referral Summary ---
Author Organization [facility] Address [address] [place] [address] Care Team Providers Care Freelance Art Director Name Role Phone Leo Turner MD Primary Care Provider [phone] Source Comments [facility],non-owned Affiliates and Associated Physician Practices is amultiple site organization consisting of ambulatory clinics and hospital sitesin [place], [place], [place] and [place]. This disclosure is being madepursuant to the Care Everywhere program and may not contain all information available regarding this patient. Last updated 18.[facility] Active Problems Problem Noted Date Diagnosed Date [...] 05/17/2018 8:25 AM CDT Plan of Treatment Not on file Care Teams Freelance Art Director Relationship Specialty Start Date End Date Leo Turner MD [address] [place] [address] PCP - General Internal Medicine 05/19/18
--- OUTSIDE RECORDS SUMMARY | 2024-11-05 06:08 | XMS_ITS | Patient Health Summary ---
Author Organization [facility] Address [address] [place] [address] Care Team Providers Care Substation Electrician Name Role Phone Leo Turner MD Primary Care Provider Note from [facility],non-owned Affiliates and Associated Physician Practices is amultiple site organization consisting of ambulatory clinics and hospital sitesin [place], [place], [place] and [place]. This disclosure is being madepursuant to the Care Everywhere program and may not contain all information available regarding this patient. Last updated 18.[facility] Active Problems Problem Noted Date Diagnosed [...] Mass Index 31.41 05/17/2018 8:25 AM CDT Care Teams Substation Electrician Relationship Specialty Start Date End Date Leo Turner MD [address] [place] [address] PCP - General Internal Medicine 05/19/18
--- NOTE | 2024-11-05 06:21 | ED_ITS ---
HPI - Nausea/Vomiting/Diarrhea General Chief complaint: Nausea/Vomiting/Diarrhea Stated complaint: n/v/d Time Seen by Provider: 11/05/24 06:21 Source: patient Mode of arrival: ambulatory Limitations: no limitations History of Present Illness HPI Narrative: 19-year-old female with a history of anxiety, bipolar disorder, dyslipidemia, GERD, THC use, pancreatitis, hepatic steatosis,recurrent vomiting presents to [facility] ED with a 3 day history of -- nausea with multiple episodes of vomiting. no diarrhea. -- Diffuse abdominal pain No fever or chills the patient presented on 10/27/24 with vomiting and was diagnosed to have pancreatitis. The patient was admitted for recurrent vomiting on 10/30/2024. She had a CT of the abdomen and ultrasound which revealed hepatic steatosis. She left against medical advice on 10/31/2023. MD elicited complaint: nausea, vomiting and abdominal pain Onset (ago): day(s) ( Three days) Description of vomiting: watery Associated nausea: Yes Associated abdominal pain: Yes Location of pain: epigastric Radiation: periumbilical Pain consistency: constant Quality: aching Exacerbating factors: none Relieving factors: none Associated symptoms: denies other symptoms Related Data Home Medications ?Medication ?Instructions ?Recorded ?Confirmed ?Last Taken ?Type quetiapine 50 mg tablet 100 mg PO DIRECTED PRN sleep 09/22/22 10/31/24 Unknown History ziprasidone HCl 20 mg capsule 20 mg PO DIRECTED 09/22/22 10/31/24 Unknown History hydroxyzine pamoate 50 mg capsule 50 mg PO DAILY 12/02/23 10/30/24 Unknown History fluvoxamine 100 mg tablet 100 mg PO DAILY 10/30/24 10/30/24 Unknown History pravastatin 20 mg tablet 20 mg PO DAILY 10/30/24 10/30/24 Unknown History aripiprazole 5 mg tablet 5 mg PO DAILY 11/05/24 11/05/24 Unknown History Allergies Allergy/AdvReac Type Severity Reaction Status Date / Time pineapple Allergy Hives Verified 11/05/24 06:22 adhesive AdvReac Rash Verified 11/05/24 06:22 Review of Systems Review of Systems: All systems reviewed & are unremarkable except as noted in HPI and below Constitutional: Constitutional: Reports as per HPI and Reports no additional constitutional complaints Eyes: Eyes: Reports as per HPI and Reports no additional eye complaints ENT: Reports system reviewed and no additional complaints, except as documented and Reports as per HPI Cardiovascular: Cardiovascular: Reports as per HPI and Reports no additional cardiovascular complaints Respiratory: Respiratory: Reports as per HPI and Reports no additional respiratory complaints Gastrointestinal: Gastrointestinal: Reports as per HPI, Reports no additional gastrointestinal complaints and Reports abdominal pain Genitourinary: Genitourinary: Reports no additional female genitourinary complaints and Reports as per HPI Musculoskeletal: Musculoskeletal: Reports no additional musculoskeletal complaints and Reports as per HPI Integumentary/Breasts: Skin/Breast: Reports system reviewed and no additional complaints, except as docu and Reports as per HPI Neurologic: Reports system reviewed and no additional complaints, except as documented and Reports as per HPI Psychiatric: Psychiatric: Reports no additional psychiatric complaints and Reports as per HPI Endocrine: Endocrine: Reports no additional endocrine complaints and Reports as per HPI Hematologic/Lymphatic: Hematologic/Lymphatic: Reports no additional hematologic/lymphatic complaints and Reports as per HPI Allergic/Immunologic: Allergic/Immunologic: Reports no additional allergic/immunologic complaints and Reports as per HPI [facility] Past Medical History Medical History (Updated 11/05/24 @ 06:43 by Lucho Smith MD) Pancreatitis Hyperlipidemia GERD (gastroesophageal reflux disease) Bipolar disorder Anxiety and depression Family History Family History Mother Acute myocardial infarction Father Acute myocardial infarction Sibling Acute myocardial infarction Grandparent Cerebrovascular accident Other Father completed 8 to 12 years of education Social History Social History Smoking status: Never smoker Tobacco type: e-cigarettes/vaping Second hand tobacco smoke exposure: Yes Additional smoking assessment comments: Vapes THC daily Alcohol intake: never Substance use: current Substance use type: marijuana Other substance usage details: Usually daily use, but not when sick. Last use: 10/22/2024 Do You Feel Safe in your Home?: Yes Lack of Transportation: YES Lack of Food: Never True Current Housing: I Have Housing Concerned About Future Housing: YES Difficulty Paying Gas/Electric Bills: No Difficulty Paying for Meds: No Currently Unemployed: No Education: Grade School Difficulty w/ Childcare or Family Care: No Spiritual care concerns: No Exam Narrative: afebrile. Oxygen saturation of 96% on room air with a respiratory rate of 18. Const: General: ill appearing Nutritional Appearance: well nourished Orientation/consciousness: patient oriented x3 Limitations: no limitations HENMT: Head: normal to inspection Ears: external ears normal Face/Nose/Sinus: Normal external nose present Face and sinus: normal facial exam Mouth: Yes Normal oral and palatal mucosa present Throat: posterior oropharynx normal Eyes: Conjunctivae: conjunctivae normal Cornea: corneas normal Pupils: Equal, round and reactive pupils present EOM: EOMs intact bilaterally Direct Ophthalmoscopy: no photophobia Neck: Neck: normal visual inspection, no lymphadenopathy and no meningeal signs Chest: Chest palpation & inspection: normal inspection of the chest Resp: Effort & Inspection: normal respiratory effort Auscultation: clear to auscultation bilaterally Cardio: Rate: regular rate Rhythm: regular rhythm GI: GI Palp: Yes Soft to palpation Auscultation: normal bowel sounds Other: Epigastric tenderness without any rigidity /rebound : General: Yes no CVA tenderness Back/Spine/Pelvis: Back: no CVA tenderness Skin: General skin exam: normal color Rashes: no rashes Wounds: no wounds Neuro: General: patient oriented x3, moves all extremities, no meningeal signs, no focal motor deficits and CN's II-XI intact bilaterally Cranial nerves: Yes Nystagmus not present Speech: normal speech Gait exam (Neuro): Normal gait present Extrem: General: normal to inspection and no clubbing, cyanosis or edema Psych: Mental Status: mental status grossly normal Affect: normal affect Attitude: cooperative Course Course Emergency Course: recurrent vomiting epigastric pain will sign out to Dr. Kearney at 7 AM Vital Signs Vital signs: Vital Signs Temperature 37.1 C 11/05/24 06:07 Pulse Rate 88 11/05/24 06:07 Respiratory Rate 18 11/05/24 06:07 Blood Pressure 126/82 11/05/24 06:07 Pulse Oximetry 96 11/05/24 06:07 Oxygen Delivery Room Air 11/05/24 06:07 Temperature 37.1 C 11/05/24 06:07 Pulse Rate 88 11/05/24 06:07 Respiratory Rate 18 11/05/24 06:07 Blood Pressure 126/82 11/05/24 06:07 Pulse Oximetry 96 11/05/24 06:07 Oxygen Delivery Room Air 11/05/24 06:07 Discharge Plan Discharge Patient Language: Cook Islander Prescriptions: No Action hydroxyzine pamoate 50 mg capsule 50 mg PO DAILY ziprasidone HCl 20 mg capsule 20 mg PO DIRECTED quetiapine 50 mg tablet 100 mg PO DIRECTED PRN (Reason: sleep) Patient Comments: last fill of #60 was on 08/12/[facility] on 10/31/24 Rx Instructions: 100mg tablet. 1 to 2 tablet qhs prn sleep. fluvoxamine 100 mg tablet 100 mg PO DAILY pravastatin 20 mg tablet 20 mg PO DAILY aripiprazole 5 mg tablet 5 mg PO DAILY Follow-up/Referrals: Leo Turner MD [Primary Care Provider] -
--- OUTSIDE RECORDS SUMMARY | 2024-11-05 06:28 | XMS_ITS | Clinical Summary ---
Author Organization [facility] Address [address] [place] [address] Care Team Providers Care Airplane Fueler Name Role Phone Leo Turner MD Primary Care Provider [phone] Source Comments [facility],non-owned Affiliates and Associated Physician Practices is amultiple site organization consisting of ambulatory clinics and hospital sitesin [place], [place], [place] and [place]. This disclosure is being madepursuant to the Care Everywhere program and may not contain all information available regarding this patient. Last updated 18.[facility] Active Problems Problem Noted Date Diagnosed [...] age to complete this topic Care Teams Airplane Fueler Relationship Specialty Start Date End Date Leo Turner MD [address] [place] [address] PCP - General Internal Medicine 05/19/18
--- OUTSIDE RECORDS SUMMARY | 2024-11-05 06:28 | XMS_ITS | Patient Health Summary ---
Author Organization [facility] Address [address] [place] [address] Care Team Providers Care Animal Services Officer Name Role Phone Leo Turner MD Primary Care Provider [phone] Note from [facility],non-owned Affiliates and Associated Physician Practices is amultiple site organization consisting of ambulatory clinics and hospital sitesin [place], [place], [place] and [place]. This disclosure is being madepursuant to the Care Everywhere program and may not contain all information available regarding this patient. Last updated 18.[facility] Active Problems Problem Noted Date [...] 31.41 05/17/2018 8:25 AM CDT Care Teams Animal Services Officer Relationship Specialty Start Date End Date Leo Turner MD [address] [place] [address] PCP - General Internal Medicine 05/19/18
--- OUTSIDE RECORDS SUMMARY | 2024-11-05 06:28 | XMS_ITS | Referral Summary ---
Author Organization [facility] Address [address] [place] [address] Care Team Providers Care Instructor Programmable Controllers Name Role Phone Leo Turner MD Primary Care Provider [phone] Source Comments [facility],non-owned Affiliates and Associated Physician Practices is amultiple site organization consisting of ambulatory clinics and hospital sitesin [place], [place] and [place]. This disclosure is being madepursuant to the Care Everywhere program and may not contain all information available regarding this patient. Last updated 18.[facility] [place] Active Problems Problem Noted Date Diagnosed Date [...] of Treatment Not on file Care Teams Instructor Programmable Controllers Relationship Specialty Start Date End Date Leo Turner MD [address] [place] [address] PCP - General Internal Medicine 05/19/18
--- OUTSIDE RECORDS SUMMARY | 2024-11-05 06:28 | XMS_ITS | Clinical Summary ---
Author Organization [facility] Address [facility] [place] [address] [place] [address] Care Team Providers Care Naturopathic Doctor Name Role Phone Leo Turner MD Primary Care Provider [phone] Allergies Active Allergy Reactions Criticality Noted Date [...] Department Care Team Description 11/03/2024 2:38 PM COMM[facility]ITY YOU[facility] SECRETARY - 11/03/2024 6:07 PM [facility] Emergency [place] [facility] [address] [place] [address] [place] [address] Raffaele Costa MD Vomiting Discharge [...] Sex Assigned at Female 11/03/2024 3:46 PM COMMUNITY YOUTH SECRETARY Legal Sex Female 5:50 PM COMMUNITY YOUTH SECRETARY Gender Identity Not on file Sexual Orientation Not on file Last Filed Vital Signs Vital Sign Reading Time Taken Comments Blood Pressure 139/102 11/03/2024 6:00 PM COMM[facility]ITY YOUTH SECRETARY Pulse 89 11/03/2024 6:00 PM COMMUNITY YOUTH SECRETARY Temperature 37.3 ??C (99.2 ??F) 11/03/2024 2:49 PM CS T Respiratory Rate 18 11/03/2024 2:49 PM COMMUNITY YOUTH SECRETARY Oxygen Saturation 100% 11/03/2024 6:00 PM COMMUNITY YOUTH SECRETARY Inhaled Oxygen Concentration - - Weight 109.4 kg (241 lb 2 oz) 11/03/2024 2:49 PM COMMUNITY YOUTH SECRETARY Height 162.6 cm (5' 4 ) 11/03/2024 2:49 PM COMMUNITY YOUTH SECRETARY Body Mass Index 41.39 11/03/2024 2:49 PM COMMUNITY YOUTH SECRETARY Plan of Treatment Health Maintenance Due Date [...] Diagnosis Comments LIPASE STAT 11/03/2024 4:09 PM COMMUNITY YOUTH SECRETARY COMPREHENSIVE METABOLIC PANEL STAT 11/03/2024 4:09 PM COMM[facility]ITY YOUTH SECRETARY CBC W/DIFF AUTOMATED STAT 11/03/2024 4:09 PM COMMUNITY YOUTH SECRETARY DRUG SCREEN RAPID STAT 11/03/2024 4:0 5 PM COMMUNITY YOUTH SECRETARY TEST URINE STAT 11/03/2024 4:05 PM COMMUNITY YOUTH SECRETARY HC URINALYSIS AUTO W/MICRO STAT 11/03/2024 4:05 PM COMMUNITY YOUTH SECRETARY from Last 3 Months Results * (ABNORMAL) COMPREHENSIVE METABOLIC PANEL (11/03/2024 4:09 PM COMMUNITY YOUTH SECRETARY) SODIUM S/P/B 136 136 - 145 MMOL/L 11/03/2024 4:41 PM COMMUNITY YOUTH SECRETARY [facility] POTASSIUM S/P/B 4.4 3.5 - 5.1 MMOL/L 11/03/2024 4:41 PM COMMUNITY YOUTH SECRETARY [facility] Comment:SLIGHT HEMOLYSIS, RE SULT MAY BE AFFECTED. CHLORIDE S/P/B 100 98 - 107 MMOL/L 11/03/2024 4:41 PM COMMUNITY YOUTH SECRETARY [facility] CO2 26.3 21.0 - 32.0 MMOL/L 11/03/2024 4:41 PM [facility] GLUCOSE 101(H) 70 - 99 MG/DL 11/03/2024 4:41 PM [facility] Comment: FASTING GLUCOSE 100 TO 125 MG/DL IS CONSISTENT WITH IMPAIRED FASTING GLUCOSE. FASTING GLUCOSE >125 MG/DL IS CONSISTENT WITH DIABETES. RANDOM GLUCOSE >200 MG/DL WITH HYPERGLYCEMIC SYMPTOMS IS CONSISTENT WITH DIABETES. PER ADA GUIDELINES BUN 4(L) 6 - 24 MG/DL 11/03/2024 4:41 PM COMMUNITY YOUTH SECRETARY [facility] CREATININE S/P/B 1.09(H) 0.55 - 1.02 MG/DL 11/03/2024 4:41 PM [facility] CALCIUM S/P/B 8.9 8.4 - 10.5 MG/DL 11/03/2024 4:41 PM [facility] BILIRUBIN TOTAL S/P/B 0.7 0.2 - 1.0 MG/DL 11/03/2024 4:41 PM [facility] Comment: THIS ASSAY IS NOT RECOMMENDED FOR PATIENTS UNDERGOING TREATMENT WITH ELTROMBOPAG DUE TO THE POTENTIAL FOR FALSELY ELEVATED RESULTS. ALKALINE PHOSPHATASE S/P/B 64 52 - 144 U/L 11/03/2024 4:41 PM [facility] AST 42(H) 15 - 37 U/L 11/03/2024 4:41 PM [facility] ALT 99(H) 14 - 59 U/L 11/03/2024 4:41 PM [facility] TOTAL PROTEIN S/P/B 7.4 6.4 - 8.2 G/DL 11/03/2024 4:41 PM [facility] ALBUMIN S/P/B 4.1 3.4 - 5.0 G/DL 11/03/2024 4:41 PM [facility] ANION GAP 9.7 5.0 - 15.0 MMOL/L 11/03/2024 4:41 PM [facility] OSMOLALITY (CALC) 279 MOSM/KG 025 4:41 PM [facility] Comment:REFERENCE RANGE NOT ESTABLISHED GFR ESTIMATE 75(L) >89 ML/MIN/1. 73 M2 11/03/2024 4:41 PM [facility] GFR NOTES GFR REFERENCE S: 11/03/2024 4:41 PM [facility] Comment: THE ESTIMATED GFR IS [...] FAILURE: <15 ml/min/1.73 m2 11/03/2024 4:09 PM [facility]ITY [facility] SECRETARY us Raffaele Costa MD LABORATORY Final Result [facility] [address] [place] [address], * (ABNORMAL) CBC W/DIFF AUTOMATED (11/03/2024 4:09 PM COMMUNITY YOUTH SECRETARY) WBC 8.88 4.00 - 10.80 x10'3/uL 11/03/2024 4:15 PM COMM[facility]ITY YOUTH SECRETARY [facility] RBC 5.59(H) 4.10 - 5.40 x10'6/uL 11/03/2024 4:15 PM COMMUNITY YOUTH SECRETARY [facility] HGB 15.2 12.0 - 16.0 G/DL 11/03/2024 4:15 PM COMM[facility]ITY YOU[facility] SECRETARY [facility] HCT 43.5 36.0 - 47.0 % 11/03/2024 4:15 PM [facility]ITY [facility] SECRETARY [facility] MCV 77.8(L) 78.0 - 100.0 FL 11/03/2024 4:15 PM COMMUNITY YOUTH SECRETARY [facility] MCH 27.2 27.0 - 31.0 PG 11/03/2024 4:15 PM COMM[facility]ITY YOUTH SECRETARY [facility] MCHC 34.9 33.0 - 36.0 G/DL 11/03/2024 4:15 PM COMMUNITY YOUTH SECRETARY [facility] RDW 12.8 11.5 - 14.5 % 11/03/2024 4:15 PM COMMUNITY YOUTH SECRETARY [facility] PLT 335 150 - 350 x10'3/uL 11/03/2024 4:15 PM COMMUNITY YOUTH SECRETARY [facility] MPV 9.7 7.4 - 10.4 FL 11/03/2024 4:15 PM COMMUNITY YOUTH SECRETARY [facility] CBC COMMENT NORMAL REFERENCE RANGE NOT ESTABLISHED FOR THE PROPORTIONAL LEUKOCYTE DIFFERENTIAL. 11/03/2024 4:15 PM COMMUNITY YOUTH SECRETARY [facility] NEUTROPHILS % 81.3 % 11/03/2024 4:15 PM COMMUNITY YOUTH SECRETARY [facility] LYMPHOCYTES % 14.6 % 11/03/2024 4:15 PM COMMUNITY YOUTH SECRETARY [facility] MONOCYTES % 2.7 % 11/03/2024 4:15 PM COMMUNITY YOUTH SECRETARY [facility] EOSINOPHILS % 0.3 % 11/03/2024 4:15 PM COMMUNITY YOUTH SECRETARY [facility] BASOPHILS % 0.5 % 11/03/2024 4:15 PM COMMUNITY YOUTH SECRETARY [facility] IMMATURE GRANS % 0.6 % 11/03/19 4:15 PM COMMUNITY YOUTH SECRETARY [facility] NRBC % 0.0 % 11/03/2024 4:15 PM COMMUNITY YOUTH SECRETARY [facility] ABS. NEUTROPHILS 7.22 1.60 - 8.30 x10'3/uL 11/03/2024 4:15 PM COMMUNITY YOUTH SECRETARY [facility] ABS. LYMPHOCYTES 1.30 0.80 - 4.70 x10'3/uL 11/03/2024 4:15 PM COMMUNITY YOUTH SECRETARY [facility] ABS. MONOCYTES 0.24 0.00 - 1.50 x10'3/uL 11/03/2024 4:15 PM COMMUNITY YOUTH SECRETARY [facility] ABS. EOSINOPHILS 0.03 0.00 - 0.40 x10'3/uL 11/03/2024 4:15 PM COMMUNITY YOUTH SECRETARY [facility] ABS. BASOPHILS 0.04 0.00 - 0.20 x10'3/uL 11/03/2024 4:15 PM COMMUNITY YOUTH SECRETARY [facility] ABS. IMMATURE GRANULOCYTES 0.05(H) 0.00 - 0.03 x10'3/uL 11/03/2024 4:15 PM COMMUNITY YOUTH SECRETARY [facility] ABS. NUCLEATED RBC'S 0.00 0.00 - 0.01 x10'3/uL 11/03/2024 4:15 PM COMMUNITY YOUTH SECRETARY [facility] 11/03/2024 4:09 PM COMMUNITY YOUTH SECRETARY us Raffaele Costa MD LABORATORY Final Result [facility] [address] [place] [address], * (ABNORMAL) LIPASE (11/03/2024 4:09 PM COMMUNITY YOUTH SECRETARY) LIPASE 163(H) 16 - 77 UNITS/L 11/03/2024 4:41 PM COMMUNITY YOUTH SECRETARY [facility] 11/03/2024 4:09 PM COMMUNITY YOUTH SECRETARY us Raffaele Costa MD LABORATORY Final Result [facility] [address] [place] [address], * (ABNORMAL) DRUG SCREEN RAPID (11/03/2024 4:05 PM COMMUNITY YOUTH SECRETARY) CANNABINOIDS SCREEN (U) POSITIVE(A) NEGATIVE 11/03/2024 6:40 PM COMMUNITY YOUTH SECRETARY [facility] PHENCYCLIDINE PCP (U) NEGATIVE NEGATIVE 11/03/2024 6:40 PM COMMUNITY YOUTH SECRETARY [facility] COCAINE METABOLITES (U) NEGATIVE NEGATIVE 11/03/2024 6:40 PM COMMUNITY YOUTH SECRETARY [facility] METHAMPHETAMINE SCREEN (U) NEGATIVE NEGATIVE 11/03/2024 6:40 PM COMMUNITY YOUTH SECRETARY [facility] OPIATE SCREEN (U) NEGATIVE NEGATIVE 025 6:40 PM COMMUNITY YOUTH SECRETARY [facility] AMPHETAMINE SCREEN (U) NEGATIVE NEGATIVE 11/03/2024 6:40 PM COMMUNITY YOUTH SECRETARY [facility] BENZODIAZEPINES SCREEN (U) NEGATIVE NEGATIVE 11/03/2024 6:40 PM COMMUNITY YOUTH SECRETARY [facility] TRICYCLIC ANTIDEPRESSANT SCREEN (U) NEGATIVE NEGATIVE 11/03/2024 6:40 PM COMMUNITY YOUTH SECRETARY [facility] METHADONE (U) NEGATIVE NEGATIVE 11/03/2024 6:40 PM COMMUNITY YOUTH SECRETARY [facility] BARBITURATES SCREEN (U) NEGATIVE NEGATIVE 11/03/2024 6:40 PM COMMUNITY YOUTH SECRETARY [facility] OXYCODONE SCREEN (U) NEGATIVE NEGATIVE 11/03/2024 6:40 PM COMMUNITY YOUTH SECRETARY [facility] URINE TOX COMMENT THIS TEST METHODOLOGY IS DESIGNED AND OFFERED A RAPID TURNAROUND, QUALITATIVE SCREENING PROCEDURE TO AID IN THE IMMEDIATE MEDICAL ASSESSMENT OF PATIENTS SUSPECTED OF SUBSTANCE ABUSE. 11/03/2024 5:08 PM COMMUNITY YOUTH SECRETARY [facility] Comment: CLINICAL CONSIDERATION AND PROFESSIONAL JUDGMENT MUST BE APPLIED TO ANY DRUG OF ABUSE TEST RESULT, BOTH POSITIVE AND NEGATIVE. CONFIRMATORY QUANTITATIVE RESULTS ARE AVAILABLE THROUGH [facility]. URINE SPECIMEN / Unknown 11/03/2024 4:05 PM COMMUNITY YOUTH SECRETARY us Raffaele Costa MD URINE ORDERABLES Final Result [facility] [address] [place] [address], * (ABNORMAL) URINALYSIS (11/03/2024 4:05 PM COMMUNITY YOUTH SECRETARY) COLOR (U) YELLOW 11/03/2024 4:47 PM COMMUNITY YOUTH SECRETARY [facility] TRANSPARENCY CLEAR 11/03/2024 4:47 PM COMMUNITY YOUTH SECRETARY [facility] SPECIFIC GRAVITY (U) 1.025 1.000 - 1.025 11/03/2024 4:47 PM COMMUNITY YOUTH SECRETARY [facility] U PH 7.0 5.0 - 8.0 11/03/2024 4:47 PM COMMUNITY YOUTH SECRETARY [facility] LEUKOCYTES (U) NEGATIVE NEGATIVE 11/03/2024 4:47 PM COMMUNITY YOUTH SECRETARY [facility] NITRITES NEGATIVE NEGATIVE 11/03/2024 4:47 PM COMMUNITY YOUTH SECRETARY [facility] PROTEIN RANDOM (U) NEGATIVE NEGATIVE 11/03/2024 4:47 PM COMMUNITY YOUTH SECRETARY [facility] GLUCOSE (U) NEGATIVE NEGATIVE 11/03/2024 4:47 PM COMMUNITY YOUTH SECRETARY [facility] KETONES MG/DL (U) 2+(A) NEGATIVE 11/03/2024 4:47 PM COMMUNITY YOUTH SECRETARY [facility] UROBILINOGEN 0.2 <1.0 EU/DL 11/03/2024 4:47 PM COMMUNITY YOUTH SECRETARY [facility] BILIRUBIN (U) NEGATIVE NEGATIVE 11/03/2024 4:47 PM COMMUNITY YOUTH SECRETARY [facility] BLOOD (U) 2+(A) NEGATIVE 11/03/2024 4:47 PM COMMUNITY YOUTH SECRETARY [facility] WBC/HPF 0-5 0 - 5 /HPF 11/03/2024 4:47 PM COMMUNITY YOUTH SECRETARY [facility] RBC/HPF 5-10(A) 0 - 5 /HPF 11/03/2024 4:47 PM COMMUNITY YOUTH SECRETARY [facility] EPI/LPF RARE /LPF 11/03/2024 4:47 PM COMMUNITY YOUTH SECRETARY [facility] BACTERIA (U) 1+ /HPF 11/03/2024 4:47 PM COMMUNITY YOUTH SECRETARY [facility] OTHER CASTS (U) HYALINE /LPF 4:47 PM COMMUNITY YOUTH SECRETARY [facility] Comment:10-20 URINE SPECIMEN OBTAINED BY CLEAN CATCH PROCEDURE / Unknown 11/03/2024 4:05 PM COMMUNITY YOUTH SECRETARY us Raffaele Costa MD URINE ORDERABLES Final Result Performing Organization Address City/[facility]/ZIP Co de Phone Number [facility] [address] [place], [place] [id number], [place] [phone] * TEST URINE (11/03/2024 4:05 PM COMMUNITY YOUTH SECRETARY) URINE HCG TEST NEGATIVE 11/03/2024 4:42 PM COMMUNITY YOUTH SECRETARY [facility] SPECIFIC GRAVITY 1.025 11/03/2024 4:42 PM COMMUNITY YOUTH SECRETARY [facility] URINE SPECIMEN FROM URETHRA / Unknown 11/03/2024 4:05 PM COMMUNITY YOUTH SECRETARY us Raffaele Costa MD URINE ORDERABLES Final Result Performing Organization Address City/[facility]/ZIP Co de Phone Number [facility] [address] [place] [address], from Last 3 Months Insurance Care Teams Naturopathic Doctor Relationship Specialty Start Date End Date Leo Turner MD [address] [place] [address] PCP - General INTERNAL MEDICINE 11/03/24
--- OUTSIDE RECORDS SUMMARY | 2024-11-05 06:28 | XMS_ITS | Encounter Summary ---
Author Organization [facility] Address [address] [place] [address]. [place] [address] [place] [address] Care Team Providers Care Heat Treat Furnace Operator Name Role Phone Leo Turner MD Primary Care Provider [phone] Reason for Visit * Reason Comments Vomiting Encounter Details Date Type Department Care Team (Late st Contact Info) Description 11/03/2024 2:38 PM RADIO PROGRAM CHECKER - 11/03/2024 6:07 PM RADIO PROGRAM CHECKER Emergency [facility] [address] [facility] [place] [address] Raffaele Costa MD [address] [place] [id number] Vomiting Discharge Disposition: Home or Self Care (Routine Discharge) Social History Tobacco Use Types Packs/Day Years Used Date Smoking Tobacco: Never Smokeless Tobacco: Never Tobacco Cessation:Counseling Given: Not Answered Alcohol Use Standard Drinks/Week Comments Never 0 (1 standard drink = 0.6 oz pur e alcohol) Comments No Sex and Gender Information Value Date Recorded Sex Assigned at Female 11/03/2024 3:46 PM RADIO PROGRAM CHECKER Legal Sex Female 5:50 PM RADIO PROGRAM CHECKER Gender Identity Not on file Sexual Orientation Not on file documented as of this encounter Last Filed Vital Signs Vital Sign Reading Time Taken Comments Blood Pressure 139/102 11/03/2024 6:00 PM RADIO PROGRAM CHECKER Pulse 89 11/03/2024 6:00 PM RADIO PROGRAM CHECKER Temperature 37.3 ??C (99.2 ??F) 11/03/2024 2:49 PM CS T Respiratory Rate 18 11/03/2024 2:49 PM RADIO PROGRAM CHECKER Oxygen Saturation 100% 11/03/2024 6:00 PM RADIO PROGRAM CHECKER Inhaled Oxygen Concentration - - Weight 109.4 kg (241 lb 2 oz) 11/03/2024 2:49 PM RADIO PROGRAM CHECKER Height 162.6 cm (5' 4 ) 11/03/2024 2:49 PM RADIO PROGRAM CHECKER Body Mass Index 41.39 11/03/2024 2:49 PM RADIO PROGRAM CHECKER documented in this encounter Discharge Instructions * Discharge Instructions* Raffaele Costa MD - 11/03/2024 6:06 PM RADIO PROGRAM CHECKER Continue zofran as needed. Return to ER for any worsening symptoms. O PROGRAM CHECKER * Attachments The following attachments cannot be sent through Care Everywhere. * Nausea and Vomiting Discharge Instructions, Adult (Jordanian) documented in this encounter Medications at Time [...] Pt states she had colitis last month. O PROGRAM CHECKER O PROGRAM CHECKER documented in this encounter Plan of Treatment Not on file documented as of this encounter Procedures Procedure Name Priority Date/Time Associated Diagnosis Comments COMPREHENSIVE METABOLIC PANEL STAT 11/03/2024 4:09 PM RADIO PROGRAM CHECKER CBC W/DIFF AUTOMATED STAT 11/03/2024 4:09 PM RADIO PROGRAM CHECKER LIPASE STAT 11/03/2024 4:09 PM RADIO PROGRAM CHECKER DRUG SCREEN RAPID STAT 11/03/2024 4:0 5 PM RADIO PROGRAM CHECKER HC URINALYSIS AUTO W/MICRO STAT 11/03/2024 4:05 PM RADIO PROGRAM CHECKER TEST URINE STAT 11/03/2024 4:05 PM RADIO PROGRAM CHECKER documented in this encounter Results * (ABNORMAL) LIPASE (11/03/2024 4:09 PM RADIO PROGRAM CHECKER) LIPASE 163(H) 16 - 77 UNITS/L 11/03/2024 4:41 PM RADIO PROGRAM CHECKER [facility] 11/03/2024 4:09 PM RADIO PROGRAM CHECKER Raffaele Costa MD LABORATORY Final Result [facility] [place] [address], * (ABNORMAL) COMPREHENSIVE METABOLIC PANEL (11/03/2024 4:09 PM RADIO PROGRAM CHECKER) SODIUM S/P/B 136 136 - 145 MMOL/L 11/03/2024 4:41 PM RADIO PROGRAM CHECKER [facility] POTASSIUM S/P/B 4.4 3.5 - 5.1 MMOL/L 11/03/2024 4:41 PM RADIO PROGRAM CHECKER [facility] Comment:SLIGHT HEMOLYSIS, RE SULT MAY BE AFFECTED. CHLORIDE S/P/B 100 98 - 107 MMOL/L 11/03/2024 4:41 PM [facility] CO2 26.3 21.0 - 32.0 MMOL/L 11/03/2024 4:41 PM [facility] GLUCOSE 101(H) 70 - 99 MG/DL 11/03/2024 4:41 PM [facility] Comment: FASTING GLUCOSE 100 TO 125 MG/DL IS CONSISTENT WITH IMPAIRED FASTING GLUCOSE. FASTING GLUCOSE >125 MG/DL IS CONSISTENT WITH DIABETES. RANDOM GLUCOSE >200 MG/DL WITH HYPERGLYCEMIC SYMPTOMS IS CONSISTENT WITH DIABETES. PER ADA GUIDELINES BUN 4(L) 6 - 24 MG/DL 11/03/2024 4:41 PM [facility] CREATININE S/P/B 1.09(H) 0.55 - 1.02 MG/DL 11/03/2024 4:41 PM [facility] CALCIUM S/P/B 8.9 8.4 - 10.5 MG/DL 11/03/2024 4:41 PM [facility] BILIRUBIN TOTAL S/P/B 0.7 0.2 - 1.0 MG/DL 11/03/2024 4:41 PM [facility] Comment: THIS ASSAY IS NOT RECOMMENDED FOR PATIENTS UNDERGOING TREATMENT WITH ELTROMBOPAG DUE TO THE POTENTIAL FOR FALSELY ELEVATED RESULTS. ALKALINE PHOSPHATASE S/P/B 64 52 - 144 U/L 11/03/2024 4:41 PM [facility] AST 42(H) 15 - 37 U/L 11/03/2024 4:41 PM [facility] ALT 99(H) 14 - 59 U/L 11/03/2024 4:41 PM [facility] TOTAL PROTEIN S/P/B 7.4 6.4 - 8.2 G/DL 11/03/2024 4:41 PM [facility] ALBUMIN S/P/B 4.1 3.4 - 5.0 G/DL 11/03/2024 4:41 PM [facility] ANION GAP 9.7 5.0 - 15.0 MMOL/L 11/03/2024 4:41 PM [facility] OSMOLALITY (CALC) 279 MOSM/KG 025 4:41 PM [facility] Comment:REFERENCE RANGE NOT ESTABLISHED GFR ESTIMATE 75(L) >89 ML/MIN/1. 73 M2 11/03/2024 4:41 PM [facility] GFR NOTES GFR REFERENCE S: 11/03/2024 4:41 PM [facility] Comment: THE ESTIMATED GFR IS [...] FAILURE: <15 ml/min/1.73 m2 11/03/2024 4:09 PM RADIO PROGRAM CHECKER us Raffaele Costa MD LABORATORY Final Result [facility] [address] [place] [address], * (ABNORMAL) CBC W/DIFF AUTOMATED (11/03/2024 4:09 PM RADIO PROGRAM CHECKER) WBC 8.88 4.00 - 10.80 x10'3/uL 11/03/2024 4:15 PM [facility] RBC 5.59(H) 4.10 - 5.40 x10'6/uL 11/03/2024 4:15 PM [facility] HGB 15.2 12.0 - 16.0 G/DL 11/03/2024 4:15 PM [facility] HCT 43.5 36.0 - 47.0 % 11/03/2024 4:15 PM [facility] MCV 77.8(L) 78.0 - 100.0 FL 11/03/2024 4:15 PM [facility] MCH 27.2 27.0 - 31.0 PG 11/03/2024 4:15 PM [facility] MCHC 34.9 33.0 - 36.0 G/DL 11/03/2024 4:15 PM [facility] RDW 12.8 11.5 - 14.5 % 11/03/2024 4:15 PM [facility] PLT 335 150 - 350 x10'3/uL 11/03/2024 4:15 PM [facility] MPV 9.7 7.4 - 10.4 FL 11/03/2024 4:15 PM [facility] CBC COMMENT NORMAL REFERENCE RANGE NOT ESTABLISHED FOR THE PROPORTIONAL LEUKOCYTE DIFFERENTIAL. 11/03/2024 4:15 PM [facility] NEUTROPHILS % 81.3 % 11/03/2024 4:15 PM [facility] LYMPHOCYTES % 14.6 % 11/03/2024 4:15 PM [facility] MONOCYTES % 2.7 % 11/03/2024 4:15 PM [facility] EOSINOPHILS % 0.3 % 11/03/2024 4:15 PM [facility] BASOPHILS % 0.5 % 11/03/2024 4:15 PM [facility] IMMATURE GRANS % 0.6 % 11/03/19 4:15 PM [facility] NRBC % 0.0 % 11/03/2024 4:15 PM [facility] ABS. NEUTROPHILS 7.22 1.60 - 8.30 x10'3/uL 11/03/2024 4:15 PM [facility] ABS. LYMPHOCYTES 1.30 0.80 - 4.70 x10'3/uL 11/03/2024 4:15 PM [facility] ABS. MONOCYTES 0.24 0.00 - 1.50 x10'3/uL 11/03/2024 4:15 PM [facility] ABS. EOSINOPHILS 0.03 0.00 - 0.40 x10'3/uL 11/03/2024 4:15 PM RADIO PROGRAM CHECKER [facility] ABS. BASOPHILS 0.04 0.00 - 0.20 x10'3/uL 11/03/2024 4:15 PM RADIO PROGRAM CHECKER [facility] ABS. IMMATURE GRANULOCYTES 0.05(H) 0.00 - 0.03 x10'3/uL 11/03/2024 4:15 PM RADIO PROGRAM CHECKER [facility] ABS. NUCLEATED RBC'S 0.00 0.00 - 0.01 x10'3/uL 11/03/2024 4:15 PM RADIO PROGRAM CHECKER [facility] 11/03/2024 4:09 PM RADIO PROGRAM CHECKER us Raffaele Costa MD LABORATORY Final Result [facility] [email or web address] [place] [address], * (ABNORMAL) DRUG SCREEN RAPID (11/03/2024 4:05 PM RADIO PROGRAM CHECKER) CANNABINOIDS SCREEN (U) POSITIVE(A) NEGATIVE 11/03/2024 6:40 PM RADIO PROGRAM CHECKER [facility] PHENCYCLIDINE PCP (U) NEGATIVE NEGATIVE 11/03/2024 6:40 PM RADIO PROGRAM CHECKER [facility] COCAINE METABOLITES (U) NEGATIVE NEGATIVE 11/03/2024 6:40 PM RADIO PROGRAM CHECKER [facility] METHAMPHETAMINE SCREEN (U) NEGATIVE NEGATIVE 11/03/2024 6:40 PM RADIO PROGRAM CHECKER [facility] OPIATE SCREEN (U) NEGATIVE NEGATIVE 025 6:40 PM RADIO PROGRAM CHECKER [facility] AMPHETAMINE SCREEN (U) NEGATIVE NEGATIVE 11/03/2024 6:40 PM RADIO PROGRAM CHECKER [facility] BENZODIAZEPINES SCREEN (U) NEGATIVE NEGATIVE 11/03/2024 6:40 PM RADIO PROGRAM CHECKER [facility] TRICYCLIC ANTIDEPRESSANT SCREEN (U) NEGATIVE NEGATIVE 11/03/2024 6:40 PM RADIO PROGRAM CHECKER [facility] METHADONE (U) NEGATIVE NEGATIVE 11/03/2024 6:40 PM RADIO PROGRAM CHECKER [facility] BARBITURATES SCREEN (U) NEGATIVE NEGATIVE 11/03/2024 6:40 PM RADIO PROGRAM CHECKER [facility] OXYCODONE SCREEN (U) NEGATIVE NEGATIVE 11/03/2024 6:40 PM RADIO PROGRAM CHECKER [facility] URINE TOX COMMENT THIS TEST METHODOLOGY IS DESIGNED AND OFFERED A RAPID TURNAROUND, QUALITATIVE SCREENING PROCEDURE TO AID IN THE IMMEDIATE MEDICAL ASSESSMENT OF PATIENTS SUSPECTED OF SUBSTANCE ABUSE. 11/03/2024 5:08 PM RADIO PROGRAM CHECKER [facility] Comment: CLINICAL CONSIDERATION AND PROFESSIONAL JUDGMENT MUST BE APPLIED TO ANY DRUG OF ABUSE TEST RESULT, BOTH POSITIVE AND NEGATIVE. CONFIRMATORY QUANTITATIVE RESULTS ARE AVAILABLE THROUGH OUR [facility]. URINE SPECIMEN / Unknown 11/03/2024 4:05 PM RADIO PROGRAM CHECKER us Raffaele Costa MD URINE ORDERABLES Final Result Performing Organization Address City/[facility]/ZIP Co [place] [address], * TEST URINE (11/03/2024 4:05 PM RADIO PROGRAM CHECKER) URINE HCG TEST NEGATIVE 11/03/2024 4:42 PM RADIO PROGRAM CHECKER [facility] SPECIFIC GRAVITY 1.025 11/03/2024 4:42 PM RADIO PROGRAM CHECKER [facility] URINE SPECIMEN FROM URETHRA / Unknown 11/03/2024 4:05 PM RADIO PROGRAM CHECKER us Raffaele Costa MD URINE ORDERABLES Final Result Performing Organization Address City/[facility]/ZIP Co de Phone Number [facility] [address] [place] [address], [place] [phone] * (ABNORMAL) URINALYSIS (11/03/2024 4:05 PM RADIO PROGRAM CHECKER) COLOR (U) YELLOW 11/03/2024 4:47 PM RADIO PROGRAM CHECKER [facility] TRANSPARENCY CLEAR 11/03/2024 4:47 PM RADIO PROGRAM CHECKER [facility] SPECIFIC GRAVITY (U) 1.025 1.000 - 1.025 11/03/2024 4:47 PM RADIO PROGRAM CHECKER [facility] U PH 7.0 5.0 - 8.0 11/03/2024 4:47 PM RADIO PROGRAM CHECKER [facility] LEUKOCYTES (U) NEGATIVE NEGATIVE 11/03/2024 4:47 PM RADIO PROGRAM CHECKER [facility] NITRITES NEGATIVE NEGATIVE 11/03/2024 4:47 PM RADIO PROGRAM CHECKER [facility] PROTEIN RANDOM (U) NEGATIVE NEGATIVE 11/03/2024 4:47 PM RADIO PROGRAM CHECKER [facility] GLUCOSE (U) NEGATIVE NEGATIVE 11/03/2024 4:47 PM RADIO PROGRAM CHECKER [facility] KETONES MG/DL (U) 2+(A) NEGATIVE 11/03/2024 4:47 PM RADIO PROGRAM CHECKER [facility] UROBILINOGEN 0.2 <1.0 EU/DL 11/03/2024 4:47 PM RADIO PROGRAM CHECKER [facility] BILIRUBIN (U) NEGATIVE NEGATIVE 11/03/2024 4:47 PM RADIO PROGRAM CHECKER [facility] BLOOD (U) 2+(A) NEGATIVE 11/03/2024 4:47 PM RADIO PROGRAM CHECKER [facility] WBC/HPF 0-5 0 - 5 /HPF 11/03/2024 4:47 PM RADIO PROGRAM CHECKER [facility] RBC/HPF 5-10(A) 0 - 5 /HPF 11/03/2024 4:47 PM RADIO PROGRAM CHECKER [facility] EPI/LPF RARE /LPF 11/03/2024 4:47 PM RADIO PROGRAM CHECKER [facility] BACTERIA (U) 1+ /HPF 11/03/2024 4:47 PM RADIO PROGRAM CHECKER [facility] OTHER CASTS (U) HYALINE /LPF 4:47 PM RADIO PROGRAM CHECKER [facility] Comment:10-20 URINE SPECIMEN OBTAINED BY CLEAN CATCH PROCEDURE / Unknown 11/03/2024 4:05 PM RADIO PROGRAM CHECKER us Raffaele Costa MD URINE ORDERABLES Final Result [facility] [address] [place] [address], documented in this encounter Visit Diagnoses Diagnosis Vomiting- Primary Vomiting alone documented in this encounter Administered Medications Inactive Administered Medications - up to 3 most recent administrations Medication Order MAR Action Action Date Dose Rate Site ondansetron (ZOFRAN) injection 4 mg 4 mg, Intravenous, Once, 1 dose, On Wed11/03/24 at 1600, IV push over 2-5 minutes. Given 11/03/2024 4:22 PM RADIO PROGRAM CHECKER 4 mg sodium chloride 0.9% bolus infusion 1,000 mL 1,000 mL, Intravenous, Administer over 60 Minutes, Once, 1 dose, On Wed11/03/24 at 1600 New Bag 11/03/2024 4:21 PM RADIO PROGRAM CHECKER 1,000 mLs 1000 mL/hr documented in this encounter Active and Recently Administered Medications Times are shown in RADIO PROGRAM CHECKER. Scheduled Medication Order 11/01/2024 11/02/2024 11/03/2024 ondansetron [...] RN) documented in this encounter Care Teams Heat Treat Furnace Operator Relationship Specialty Start Date End Date Leo Turner MD [address] [place] [phone] PCP - General INTERNAL MEDICINE 11/03/24 documented as of this encounter
--- NOTE | 2024-11-05 06:37 | PC.NURSE ---
pt ambulated to bathroom for urine specimen
--- NOTE | 2024-11-05 06:43 | PC.NURSE ---
pt unable to urinate at this time
[2024-11-05] MEDS: LACTATED RINGERS 1,000 ML 999 ML IV CONT (07:01)
[2024-11-05] MEDS: HALOPERIDOL LACTATE 5 MG/ML VIAL IM (07:01)
[2024-11-05 07:14] LABS: Hematocrit 45.1 % (35.0-49.0); Hemoglobin 15.4 g/dL (12.0-15.0); Mean Corpuscular HGB Conc 34.1 g/dL (32-36); Mean Corpuscular Hemoglobin 26.8 pg (27.0-31.0); Mean Corpuscular Volume 78.6 fL (78.0-102.0); Mean Platelet Volume 9.7 fl (9.2-11.8); Platelet Count Result 355 K/mm3 (150-420); Red Blood Count 5.74 M/mm3 (4.20-5.40); Red Cell Distribution Width 12.8 % (11.6-14.4); White Blood Count 9.4 K/mm3 (4.8-10.8)
[2024-11-05 07:30] LABS: Alanine Aminotransferase 85 U/L (14-59); Albumin Level 4.5 g/dL (3.4-5.0); Alkaline Phosphatase 64 U/L (46-116); Anion Gap 14 mmol/L (4-12); Aspartate Amino Transferase 38 U/L (15-37); Bilirubin Direct 0.2 mg/dL (0-0.2); Bilirubin,Total 0.9 mg/dL (0.00-1.00); Blood Urea Nitrogen 9 mg/dL (7-18); Calcium 9.4 mg/dL (8.5-10.1); Carbon Dioxide 25 mmol/L (21-32); Chloride 95 mmol/L (98-108); Estimated CRCL calculation 80 ml/min; Estimated Glomerular Filt Rate 57; Glucose 97 mg/dL (70-99); Lipase 173 U/L (16-77); Magnesium 2.1 mg/dL (1.8-2.4); Osmolality Calculated 276 mOsm/kg (285-295); Potassium 3.9 mmol/L (3.5-5.1); Sodium 134 mmol/L (136-145); Total Protein 7.7 g/dL (6.4-8.2)
[2024-11-05 07:33] LABS: Lactic Acid Reflex 1.2 mmol/L (0.4-2.0)
[2024-11-05 07:46] LABS: Add Urine Microscopic? YES; Bilirubin Urine 2+ (Negative); Blood Urine Negative (Negative); Color Urine Yellow (Yellow); Glucose Urine UA Negative (Negative); Ketones Urine 3+ (Negative); Leukocyte Esterase Ur Negative LEU/UL (Negative); Nitrate Urine Negative (Negative); Protein Urine Trace (Negative); Urobilinogen Urine 0.2 mg/dL (0.2-1.0); pH Urine 7.5 (5.0-8.0)
[2024-11-05 07:50] LABS: SARS-CoV-2 RNA PCR Negative (Negative)
[2024-11-05 07:55] LABS: Influenza A QL RT-PCR Negative (Negative); Influenza B QL RT-PCR Negative (Negative)
[2024-11-05 07:56] LABS: RSV RNA, RT-PCR Negative (Negative)
[2024-11-05 07:58] LABS: Appearance Urine Cloudy (Clear); Squamous Epithelial Cell Urine Moderate /hpf (Few)
[2024-11-05 07:59] LABS: Amorphous Sediment Urine Heavy; Mucus Urine Heavy /lpf
[2024-11-05] MEDS: SODIUM CHLORIDE 0.9% IV 1,000 ML 999 ML IV CONT (08:08)
[2024-11-05 09:43] VITALS: BP 140/80; PULSE 85; RESP 16; TEMP 37; O2SAT 100
[2024-11-05 10:07] LABS: Pregnancy On Board Control Positive; Urine Pregnancy Test Negative
[2024-11-05 10:42] LABS: Large Platelets Present; Platelet Estimate Adequate (Adequate)
[2024-11-05 10:43] LABS: Atypical Lymphocytes Present; Schistocytes None Seen
[2024-11-05 10:45] LABS: Band Neutrophils Percent 0 % (0-6); Eosinophils Absolute Manual 0.09 K/mm3 (0.02-0.50); Eosinophils Percent Manual 1 % (1-6); Lymphocytes Absolute Manual 2.72 K/mm3 (1.1-4.5); Lymphocytes Percent Manual 29 % (18-44); Monocytes Absolute Manual 0.09 K/mm3 (0.1-0.90); Monocytes Percent Manual 1 % (3-9); Neutrophils Absolute Manual 6.48 K/mm3 (1.7-7.2); Neutrophils Percent Manual 69 % (46-73); Total Cells Counted 100
== END 2024-11-05 09:43 | disposition home or self-care (01) ==
PROVIDERS: Internal Medicine Critical Care Medicine; Emergency Provider Emergency Medicine; PCP Internal Medicine
DX: K29.70 Gastritis, unspecified, without bleeding (principal); Z20.822 Contact with and (suspected) exposure to COVID-19
CPT/HCPCS: 36415; 80048; 80076; 81001; 81025; 83605; 83690; 83735; 85025; 87637; 96360; 96361; 96372; 99283; J1630; J7030; J7120

== ENCOUNTER 2024-11-16 11:19 | Outpatient (CLI) | payer OTHER, SELFPAY ==
--- OUTSIDE RECORDS SUMMARY | 2024-11-16 11:25 | XMS_ITS | Clinical Summary ---
Author Organization [facility] Address [address] [place] [address] Care Team Providers Care Product Safety Officer Name Role Phone Leo Turner MD Primary Care Provider [phone] Allergies Active Allergy Reactions Criticality Noted Date [...] Department Care Team Description 11/03/2024 2:38 PM HANGER - 11/03/2024 6:07 PM [facility] Emergency [facility] [address] [place] [address] [place] [address] Raffaele Costa MD Vomiting Discharge [...] Sex Assigned at Female 11/03/2024 3:46 PM HANGER Legal Sex Female 5:50 PM HANGER Gender Identity Not on file Sexual Orientation Not on file Last Filed Vital Signs Vital Sign Reading Time Taken Comments Blood Pressure 139/102 11/03/2024 6:00 PM HANGER Pulse 89 11/03/2024 6:00 PM HANGER Temperature 37.3 C (99.2 F) 11/03/2024 2:49 PM HANGER Respiratory Rate 18 11/03/2024 2:49 PM HANGER Oxygen Saturation 100% 11/03/2024 6:00 PM HANGER Inhaled Oxygen Concentration - - Weight 109.4 kg (241 lb 2 oz) 11/03/2024 2:49 PM HANGER Height 162.6 cm (5' 4 ) 11/03/2024 2:49 PM HANGER Body Mass Index 41.39 11/03/2024 2:49 PM HANGER Plan of Treatment Health Maintenance Due Date [...] Diagnosis Comments LIPASE STAT 11/03/2024 4:09 PM HANGER COMPREHENSIVE METABOLIC PANEL STAT 11/03/2024 4:09 PM HANGER CBC W/DIFF AUTOMATED STAT 11/03/2024 4:09 PM HANGER DRUG SCREEN RAPID STAT 11/03/2024 4:0 5 PM HANGER TEST URINE STAT 11/03/2024 4:05 PM HANGER HC URINALYSIS AUTO W/MICRO STAT 11/03/2024 4:05 PM HANGER from Last 3 Months Results * (ABNORMAL) COMPREHENSIVE METABOLIC PANEL (11/03/2024 4:09 PM HANGER) SODIUM S/P/B 136 136 - 145 MMOL/L 11/03/2024 4:41 PM HANGER [facility] POTASSIUM S/P/B 4.4 3.5 - 5.1 MMOL/L 11/03/2024 4:41 PM HANGER [facility] Comment:SLIGHT HEMOLYSIS, RE SULT MAY BE AFFECTED. CHLORIDE S/P/B 100 98 - 107 MMOL/L 11/03/2024 4:41 PM HANGER [facility] CO2 26.3 21.0 - 32.0 MMOL/L 11/03/2024 4:41 PM [facility] GLUCOSE 101(H) 70 - 99 MG/DL 11/03/2024 4:41 PM [facility] Comment: FASTING GLUCOSE 100 TO 125 MG/DL IS CONSISTENT WITH IMPAIRED FASTING GLUCOSE. FASTING GLUCOSE >125 MG/DL IS CONSISTENT WITH DIABETES. RANDOM GLUCOSE >200 MG/DL WITH HYPERGLYCEMIC SYMPTOMS IS CONSISTENT WITH DIABETES. PER ADA GUIDELINES BUN 4(L) 6 - 24 MG/DL 11/03/2024 4:41 PM HANGER [facility] CREATININE S/P/B 1.09(H) 0.55 - 1.02 MG/DL 11/03/2024 4:41 PM [facility] CALCIUM S/P/B 8.9 8.4 - 10.5 MG/DL 11/03/2024 4:41 PM [facility] BILIRUBIN TOTAL S/P/B 0.7 0.2 - 1.0 MG/DL 11/03/2024 4:41 PM [facility] Comment: THIS ASSAY IS NOT RECOMMENDED FOR PATIENTS UNDERGOING TREATMENT WITH ELTROMBOPAG DUE TO THE POTENTIAL FOR FALSELY ELEVATED RESULTS. ALKALINE PHOSPHATASE S/P/B 64 52 - 144 U/L 11/03/2024 4:41 PM [facility] AST 42(H) 15 - 37 U/L 11/03/2024 4:41 PM [facility] ALT 99(H) 14 - 59 U/L 11/03/2024 4:41 PM [facility] TOTAL PROTEIN S/P/B 7.4 6.4 - 8.2 G/DL 11/03/2024 4:41 PM [facility] ALBUMIN S/P/B 4.1 3.4 - 5.0 G/DL 11/03/2024 4:41 PM [facility] ANION GAP 9.7 5.0 - 15.0 MMOL/L 11/03/2024 4:41 PM [facility] OSMOLALITY (CALC) 279 MOSM/KG 025 4:41 PM [facility] Comment:REFERENCE RANGE NOT ESTABLISHED GFR ESTIMATE 75(L) >89 ML/MIN/1. 73 M2 11/03/2024 4:41 PM [facility] GFR NOTES GFR REFERENCE S: 11/03/2024 4:41 PM [facility] Comment: THE ESTIMATED GFR IS CALCULATED [...] FAILURE: <15 ml/min/1.73 m2 11/03/2024 4:09 PM HANGER Raffaele Costa MD LABORATORY Final Result [facility] [address] [place] [address], * (ABNORMAL) CBC W/DIFF AUTOMATED (11/03/2024 4:09 PM HANGER) WBC 8.88 4.00 - 10.80 x10'3/uL 11/03/2024 4:15 PM HANGER [facility] RBC 5.59(H) 4.10 - 5.40 x10'6/uL 11/03/2024 4:15 PM HANGER [facility] HGB 15.2 12.0 - 16.0 G/DL 11/03/2024 4:15 PM HANGER [facility] HCT 43.5 36.0 - 47.0 % 11/03/2024 4:15 PM HANGER [facility] MCV 77.8(L) 78.0 - 100.0 FL 11/03/2024 4:15 PM HANGER [facility] MCH 27.2 27.0 - 31.0 PG 11/03/2024 4:15 PM HANGER [facility] MCHC 34.9 33.0 - 36.0 G/DL 11/03/2024 4:15 PM HANGER [facility] RDW 12.8 11.5 - 14.5 % 11/03/2024 4:15 PM HANGER [facility] PLT 335 150 - 350 x10'3/uL 11/03/2024 4:15 PM HANGER [facility] MPV 9.7 7.4 - 10.4 FL 11/03/2024 4:15 PM HANGER [facility] CBC COMMENT NORMAL REFERENCE RANGE NOT ESTABLISHED FOR THE PROPORTIONAL LEUKOCYTE DIFFERENTIAL. 11/03/2024 4:15 PM HANGER [facility] NEUTROPHILS % 81.3 % 11/03/2024 4:15 PM HANGER [facility] LYMPHOCYTES % 14.6 % 11/03/2024 4:15 PM HANGER [facility] MONOCYTES % 2.7 % 11/03/2024 4:15 PM HANGER [facility] EOSINOPHILS % 0.3 % 11/03/2024 4:15 PM HANGER [facility] BASOPHILS % 0.5 % 11/03/2024 4:15 PM HANGER [facility] IMMATURE GRANS % 0.6 % 11/03/19 4:15 PM HANGER [facility] NRBC % 0.0 % 11/03/2024 4:15 PM HANGER [facility] ABS. NEUTROPHILS 7.22 1.60 - 8.30 x10'3/uL 11/03/2024 4:15 PM HANGER [facility] ABS. LYMPHOCYTES 1.30 0.80 - 4.70 x10'3/uL 11/03/2024 4:15 PM HANGER [facility] ABS. MONOCYTES 0.24 0.00 - 1.50 x10'3/uL 11/03/2024 4:15 PM HANGER [facility] ABS. EOSINOPHILS 0.03 0.00 - 0.40 x10'3/uL 11/03/2024 4:15 PM HANGER [facility] ABS. BASOPHILS 0.04 0.00 - 0.20 x10'3/uL 11/03/2024 4:15 PM HANGER [facility] ABS. IMMATURE GRANULOCYTES 0.05(H) 0.00 - 0.03 x10'3/uL 11/03/2024 4:15 PM HANGER [facility] ABS. NUCLEATED RBC'S 0.00 0.00 - 0.01 x10'3/uL 11/03/2024 4:15 PM HANGER [facility] 11/03/2024 4:09 PM HANGER us Raffaele Costa MD LABORATORY Final Result [facility] [address] [place] [address], * (ABNORMAL) LIPASE (11/03/2024 4:09 PM HANGER) LIPASE 163(H) 16 - 77 UNITS/L 11/03/2024 4:41 PM HANGER [facility] 11/03/2024 4:09 PM HANGER Raffaele Costa MD LABORATORY Final Result [facility] [address]: [place] [address], * (ABNORMAL) DRUG SCREEN RAPID (11/03/2024 4:05 PM HANGER) Pathologist [facility] CANNABINOIDS SCREEN (U) POSITIVE(A) NEGATIVE 11/03/2024 6:40 PM HANGER [facility] PHENCYCLIDINE PCP (U) NEGATIVE NEGATIVE 11/03/2024 6:40 PM HANGER [facility] COCAINE METABOLITES (U) NEGATIVE NEGATIVE 11/03/2024 6:40 PM HANGER [facility] METHAMPHETAMINE SCREEN (U) NEGATIVE NEGATIVE 11/03/2024 6:40 PM HANGER [facility] OPIATE SCREEN (U) NEGATIVE NEGATIVE 025 6:40 PM HANGER [facility] AMPHETAMINE SCREEN (U) NEGATIVE NEGATIVE 11/03/2024 6:40 PM HANGER [facility] BENZODIAZEPINES SCREEN (U) NEGATIVE NEGATIVE 11/03/2024 6:40 PM HANGER [facility] TRICYCLIC ANTIDEPRESSANT SCREEN (U) NEGATIVE NEGATIVE 11/03/2024 6:40 PM HANGER [facility] METHADONE (U) NEGATIVE NEGATIVE 11/03/2024 6:40 PM HANGER [facility] BARBITURATES SCREEN (U) NEGATIVE NEGATIVE 11/03/2024 6:40 PM [facility] OXYCODONE SCREEN (U) NEGATIVE NEGATIVE 11/03/2024 6:40 PM [facility] URINE TOX COMMENT THIS TEST METHODOLOGY IS DESIGNED AND OFFERED A RAPID TURNAROUND, QUALITATIVE SCREENING PROCEDURE TO AID IN THE IMMEDIATE MEDICAL ASSESSMENT OF PATIENTS SUSPECTED OF SUBSTANCE ABUSE. 11/03/2024 5:08 PM [facility] Comment: CLINICAL CONSIDERATION AND PROFESSIONAL JUDGMENT MUST BE APPLIED TO ANY DRUG OF ABUSE TEST RESULT, BOTH POSITIVE AND NEGATIVE. CONFIRMATORY QUANTITATIVE RESULTS ARE AVAILABLE THROUGH OUR [facility]. URINE SPECIMEN / Unknown 11/03/2024 4:05 PM [facility] Raffaele Costa MD URINE ORDERABLES Final Result [facility] [address] [place] [address], * (ABNORMAL) URINALYSIS (11/03/2024 4:05 PM [facility]) COLOR (U) YELLOW 11/03/2024 4:47 PM [facility] TRANSPARENCY CLEAR 11/03/2024 4:47 PM [facility] SPECIFIC GRAVITY (U) 1.025 1.000 - 1.025 11/03/2024 4:47 PM [facility] U PH 7.0 5.0 - 8.0 11/03/2024 4:47 PM [facility] LEUKOCYTES (U) NEGATIVE NEGATIVE 11/03/2024 4:47 PM [facility] NITRITES NEGATIVE NEGATIVE 11/03/2024 4:47 PM [facility] PROTEIN RANDOM (U) NEGATIVE NEGATIVE 11/03/2024 4:47 PM [facility] GLUCOSE (U) NEGATIVE NEGATIVE 11/03/2024 4:47 PM [facility] KETONES MG/DL (U) 2+(A) NEGATIVE 11/03/2024 4:47 PM [facility] UROBILINOGEN 0.2 <1.0 EU/DL 11/03/2024 4:47 PM [facility] BILIRUBIN (U) NEGATIVE NEGATIVE 11/03/2024 4:47 PM [facility] BLOOD (U) 2+(A) NEGATIVE 11/03/2024 4:47 PM [facility] WBC/HPF 0-5 0 - 5 /HPF 11/03/2024 4:47 PM [facility] RBC/HPF 5-10(A) 0 - 5 /HPF 11/03/2024 4:47 PM [facility] EPI/LPF RARE /LPF 11/03/2024 4:47 PM [facility] BACTERIA (U) 1+ /HPF 11/03/2024 4:47 PM [facility] OTHER CASTS (U) HYALINE /LPF 4:47 PM [facility] Comment:10-20 URINE SPECIMEN OBTAINED BY CLEAN CATCH PROCEDURE / Unknown 11/03/2024 4:05 PM [facility] Raffaele Costa MD URINE ORDERABLES Final Result Performing Organization Address City/[facility]/ZIP Co de Phone Number [facility] [address] [place] [id number], * TEST URINE (11/03/2024 4:05 PM [facility]) URINE HCG TEST NEGATIVE 11/03/2024 4:42 PM [facility] SPECIFIC GRAVITY 1.025 11/03/2024 4:42 PM [facility] URINE SPECIMEN FROM URETHRA / Unknown 11/03/2024 4:05 PM [facility] Raffaele Costa MD URINE ORDERABLES Final Result Performing Organization Address City/[facility]/ZIP Co de Phone Number [facility] [address] [place] [id number], from Last 3 Months Insurance [employer] Product Safety Officer Relationship Specialty Start Date End Date Leo Turner MD [address] [place] [id number] PCP - General INTERNAL MEDICINE 11/03/24
--- OUTSIDE RECORDS SUMMARY | 2024-11-16 11:25 | XMS_ITS | Clinical Summary ---
Author Organization [facility] Address [address] [place] [address] Care Team Providers Care Instrument Technologist Name Role Phone Leo Turner MD Primary Care Provider [phone] Source Comments [facility],non-owned Affiliates and Associated Physician Practices is amultiple site organization consisting of ambulatory clinics and hospital sitesin [place], [place], [place] and [place]. This disclosure is being madepursuant to the Care Everywhere program and may not contain all information available regarding this patient. Last updated 18.[facility] Active Problems Problem Noted [...] per pcp Pulse - - Temperature 35.5 C (95.9 F) 05/17/2018 8:25 AM CDT per pcp Respiratory Rate - - Oxygen [...] age to complete this topic Care Teams Instrument Technologist Relationship Specialty Start Date End Date Leo Turner MD [address] [place] [address] PCP - General Internal Medicine 05/19/18
--- OUTSIDE RECORDS SUMMARY | 2024-11-16 11:25 | XMS_ITS | Referral Summary ---
Author Organization [facility] Address [address] [place] [address] Care Team Providers Care Core Java Engineer Name Role Phone Leo Turner MD Primary Care Provider [phone] Source Comments [facility],non-owned Affiliates and Associated Physician Practices is amultiple site organization consisting of ambulatory clinics and hospital sitesin [place], [place], [place] and [place]. This disclosure is being madepursuant to the Care Everywhere program and may not contain all information available regarding this patient. Last updated 18.[facility] Active Problems Problem Noted Date Diagnosed [...] of Treatment Not on file Care Teams Core Java Engineer Relationship Specialty Start Date End Date Leo Turner MD [address] [place] [address] PCP - General Internal Medicine 05/19/18
--- OUTSIDE RECORDS SUMMARY | 2024-11-16 11:25 | XMS_ITS | Patient Health Summary ---
Author Organization [facility] Address [address] [place] [address] Care Team Providers Care Banking Services Clerk Name Role Phone Leo Turner MD Primary Care Provider [phone] Note from [facility],non-owned Affiliates and Associated Physician Practices is amultiple site organization consisting of ambulatory clinics and hospital sitesin [place], [place], [place] and [place]. This disclosure is being madepursuant to the Care Everywhere program and may not contain all information available regarding this patient. Last updated 18.[facility] Active Problems Problem Noted Date Diagnosed [...] 31.41 05/17/2018 8:25 AM CDT Care Teams Banking Services Clerk Relationship Specialty Start Date End Date Leo Turner MD [address] [place] [address] PCP - General Internal Medicine 05/19/18
[2024-11-16 12:25] LABS: Alanine Aminotransferase 78 U/L (14-59); Albumin Level 3.5 g/dL (3.4-5.0); Alkaline Phosphatase 65 U/L (46-116); Amylase 57 U/L (25-115); Aspartate Amino Transferase 42 U/L (15-37); Bilirubin,Total 0.3 mg/dL (0.00-1.00); Lipase 92 U/L (16-77)
[2024-11-16 12:36] LABS: Total Protein 6.2 g/dL (6.4-8.2)
[2024-11-16 12:48] LABS: Bilirubin Direct < 0.1 mg/dL (0-0.2)
[2024-11-18 05:43] LABS: Immunoglobulin A 167 mg/dL (47-310); Immunoglobulin G 863 mg/dL (600-1640); Immunoglobulin M 143 mg/dL (50-300)
== END 2024-11-16 11:20 | disposition home or self-care (01) ==
LOC: CHSLAB 11:21
PROVIDERS: PCP Internal Medicine
DX: K85.90 Acute pancreatitis without necrosis or infection, unspecified (principal)
CPT/HCPCS: 36415; 80076; 82150; 82784; 83690

== ENCOUNTER 2025-05-04 13:36 | Outpatient (CLI) | payer OTHER, SELFPAY ==
--- OUTSIDE RECORDS SUMMARY | 2025-05-04 13:40 | XMS_ITS | Clinical Summary ---
Author Organization [facility] Address [address] [place] [address] Care Team Providers Care Lithograph Operator Name Role Phone Leo Turner MD Primary Care Provider [phone] Source Comments [facility],non-owned Affiliates and Associated Physician Practices is amultiple site organization consisting of ambulatory clinics and hospital sitesin [place], [place], [place] and [place]. This disclosure is being madepursuant to the Care Everywhere program and may not contain all information available regarding this patient. Last updated 18.[facility] Active Problems Problem Noted Date Diagnosed Date Abdominal pain 07/04/2018 Social History Tobacco Use Types Packs/Day Years Used Date Smoking Tobacco: Never Assessed Comments Unknown Sex and Gender Information Value Date Recorded Sex Assigned at Not on file Legal Sex Female 9:26 AM CDT Gender Identity Not on file Sexual Orientation [...] CDT per pcp Height 162.6 cm (5' 4) 05/17/2018 8:25 AM CDT p er pcp Body Mass Index 31.41 05/17/2018 8:25 AM CDT Plan of Treatment Health Maintenance Due Date Last Done Comments HIV SCREENING 2019 HPV VACCINE (1 - 3-dose series) 2019 CHLAMYDIA/GONORRHEA SCREENING 2020 MENINGOCOCCAL (Group B) VACC INE SHARED DECISION-MAKING (1 of 2 - Standard) 2020 HEPATITIS C SCREENING 10/19/2022 DTAP/TDAP/TD VACCINES (1 - Tdap) 2023 HEPATITIS B VACCINE (1 of 3 - 19+ 3-dose series) 2023 COVID-19 VACCINE (1 - 2023-2 5 season) 2024 DEPRESSION SCREENING 10/04/2024 INFLUENZA VACCINE (#1) 2025 ZOSTER VACCINE (1 of 2) 2054 HIB VACCINE Aged Out No longer eligi ble based on patient's age to complete this topic MENINGOCOCCAL GROUPS A/C/Y/W VACCINE Aged Out No longer eligible b ased on patient's age to complete this topic PNEUMOCOCCAL VACCINE Aged Out No long er eligible based on patient's age to complete this topic Care Teams Lithograph Operator Relationship Specialty Start Date End Date Leo Turner MD [address] [place] [address] PCP - General Internal Medicine 05/19/18
--- OUTSIDE RECORDS SUMMARY | 2025-05-04 13:40 | XMS_ITS | Clinical Summary ---
Author Organization [facility] Address [address] [place] [address] Care Team Providers Care Hazardous Materials Handler Name Role Phone Leo Turner MD Primary Care Provider [phone] Allergies Active Allergy Reactions Criticality Noted Date [...] total) by mouth daily. DIRECTED 4 Active Social History Tobacco Use Types Packs/Day Years Used Date Smoking Tobacco: Never Smokeless Tobacco: Never Tobacco Cessation:Counseling Given: Not Answered Alcohol Use Standard Drinks/Week Comments Never 0 (1 standard drink = 0.6 oz pur e alcohol) Comments No Sex and Gender Information Value Date Recorded Sex Assigned at Female 11/03/2024 3:46 PM MARKETING EDITOR Legal Sex Female 5:50 PM MARKETING EDITOR Gender Identity Not on file Sexual Orientation Not on file Last Filed Vital Signs Vital Sign Reading Time Taken Comments Blood Pressure 139/102 11/03/2024 6:00 PM MARKETING EDITOR Pulse 89 11/03/2024 6:00 PM MARKETING EDITOR Temperature 37.3 C (99.2 F) 11/03/2024 2:49 PM MARKETING EDITOR Respiratory Rate 18 11/03/2024 2:49 PM MARKETING EDITOR Oxygen Saturation 100% 11/03/2024 6:00 PM MARKETING EDITOR Inhaled Oxygen Concentration - - Weight 109.4 kg (241 lb 2 oz) 11/03/2024 2:49 PM MARKETING EDITOR Height 162.6 cm (5' 4) 11/03/2024 2:49 PM MARKETING EDITOR Body Mass Index 41.39 11/03/2024 2:49 PM MARKETING EDITOR Plan of Treatment Health Maintenance Due Date Last Done Comments Annual Physical 2007 HPV Vaccines (1 - 3-dose series) 2019 Meningococcal B Vaccine (1 o f 2 - Standard) 2020 Hepatitis C 2022 DTaP, Tdap and Td Vaccines ( 1 - Tdap) 2023 Hepatitis B Vaccines (1 of 3 - 19+ 3-dose series) 2023 COVID-19 Vaccine (1 - 2023-2 5 season) 2024 Meningococcal Vaccine Aged Out No johny elisabet eligible based on patient's age to complete this topic Pneumococcal Vaccine: Pediat rics (0 to 5 Years) and At-Risk Patients (6 to 49 Years) Aged Out No longer eligible b ased on patient's age to complete this topic RSV Immunizations Under 20 Months Aged Out No longer eligible based on patient's age to complete this topic Insurance [employer] Care Teams Hazardous Materials Handler Relationship Specialty Start Date End Date Leo Turner MD [address] [place] [address] PCP - General INTERNAL MEDICINE 11/03/24
[2025-05-04 13:50] LABS: Hematocrit 44.0 % (35.0-49.0); Hemoglobin 14.7 g/dL (12.0-15.0); Immature Granulocyte Percent A 0.3 % (0.0-0.0); Lymphocytes Absolute Auto 2.49 K/mm3 (1.10-4.50); Mean Corpuscular HGB Conc 33.4 g/dL (32-36); Mean Corpuscular Hemoglobin 26.0 pg (27.0-31.0); Mean Corpuscular Volume 77.9 fL (78.0-102.0); Nucleated Red Blood Cells Absolute Auto 0.00 K/mm3 (0.00-0.00); Nucleated Red Blood Cells Perc 0.0 % (0-0.0); Platelet Count Result 257 K/mm3 (150-420); Red Blood Count 5.65 M/mm3 (4.20-5.40); White Blood Count 9.1 K/mm3 (4.8-10.8)
[2025-05-04 14:17] LABS: Alanine Aminotransferase 29 U/L (6-35); Albumin Level 4.7 g/dL (3.5-5.1); Alkaline Phosphatase 70 U/L (38-126); Anion Gap 5 mmol/L (4-12); Aspartate Amino Transferase 26 U/L (14-36); Bilirubin,Total 0.9 mg/dL (0.2-1.3); Blood Urea Nitrogen 15 mg/dL (7-17); Calcium 9.3 mg/dL (8.4-10.2); Carbon Dioxide 29 mmol/L (22-30); Chloride 107 mmol/L (98-107); Estimated Glomerular Filt Rate 57; Glucose 107 mg/dL (65-110); Osmolality Calculated 292 mOsm/kg (285-295); Potassium 4.5 mmol/L (3.4-5.0); Sodium 141 mmol/L (137-145); Total Protein 7.5 g/dL (6.3-8.2)
== END 2025-05-04 13:37 | disposition home or self-care (01) ==
LOC: CHSLAB 13:38
PROVIDERS: PCP Internal Medicine; Visit Provider Nurse Practitioner Family
DX: K27.9 Peptic ulcer, site unspecified, unspecified as acute or chronic, without hemorrhage or perforation (principal); R11.10 Vomiting, unspecified
CPT/HCPCS: 36415; 80053; 85025

== ENCOUNTER 2025-07-06 16:00 | Outpatient (CLI) | payer OTHER, SELFPAY ==
--- OUTSIDE RECORDS SUMMARY | 2025-07-06 16:03 | XMS_ITS | Clinical Summary ---
Author Organization [facility] Address [address] [place] [address] Care Team Providers Care Tree Sapper Name Role Phone Leo Turner MD Primary Care Provider [phone] Source Comments [facility],non-owned Affiliates and Associated Physician Practices is amultiple site organization consisting of ambulatory clinics and hospital sitesin [place], [place], [place] and [place]. This disclosure is being madepursuant to the Care Everywhere program and may not contain all information available regarding this patient. Last updated 18.[facility] Active Problems Problem Noted Date [...] of 3 - 19+ 3-dose series) 2023 DEPRESSION SCREENING 10/04/2024 COVID-19 VACCINE (1 - 2023-2 5 season) 2025 INFLUENZA VACCINE (#1) 2025 ZOSTER VACCINE (1 of 2) 2054 HIB VACCINE Aged Out No longer eligi ble based on patient's age to complete this topic MENINGOCOCCAL GROUPS A/C/Y/W VACCINE Aged Out No longer eligible b ased on patient's age to complete this topic PNEUMOCOCCAL VACCINE Aged Out No long er eligible based on patient's age to complete this topic Care Teams Tree Sapper Relationship Specialty Start Date End Date Leo Turner MD [address] [place] [address] PCP - General Internal Medicine 05/19/18
--- OUTSIDE RECORDS SUMMARY | 2025-07-06 16:03 | XMS_ITS | Clinical Summary ---
Author Organization [facility] Address [address] [place] [address] Care Team Providers Care Pusher Operator Name Role Phone Leo Turner MD Primary Care Provider [phone] Allergies Active Allergy Reactions Criticality Noted Date [...] Sex Assigned at Female 11/03/2024 3:46 PM SAMPLE CUTTER Legal Sex Female 5:50 PM SAMPLE CUTTER Gender Identity Not on file Sexual Orientation Not on file Last Filed Vital Signs Vital Sign Reading Time Taken Comments Blood Pressure 139/102 11/03/2024 6:00 PM SAMPLE CUTTER Pulse 89 11/03/2024 6:00 PM SAMPLE CUTTER Temperature 37.3 C (99.2 F) 11/03/2024 2:49 PM SAMPLE CUTTER Respiratory Rate 18 11/03/2024 2:49 PM SAMPLE CUTTER Oxygen Saturation 100% 11/03/2024 6:00 PM SAMPLE CUTTER Inhaled Oxygen Concentration - - Weight 109.4 kg (241 lb 2 oz) 11/03/2024 2:49 PM SAMPLE CUTTER Height 162.6 cm (5' 4) 11/03/2024 2:49 PM SAMPLE CUTTER Body Mass Index 41.39 11/03/2024 2:49 PM SAMPLE CUTTER Plan of Treatment Health Maintenance Due Date Last Done Comments Annual Physical 2007 HPV Vaccines (1 - 3-dose series) 2019 Meningococcal B Vaccine (1 o f 2 - Standard) 2020 Hepatitis C 2022 DTaP, Tdap and Td Vaccines ( 1 - Tdap) 2023 Hepatitis B Vaccines (1 of 3 - 19+ 3-dose series) 2023 COVID-19 Vaccine (1 - 2023-2 5 season) 2025 Influenza Adult (#1) 2025 Meningococcal Vaccine Aged Out No johny elisabet [...] patient's age to complete this topic Insurance [place] [employer] Care Teams Pusher Operator Relationship Specialty Start Date End Date Leo Turner MD [address] [place] [id number] PCP - General INTERNAL MEDICINE 11/03/24
[2025-07-06 16:13] LABS: Hematocrit 41.8 % (35.0-49.0); Hemoglobin 13.9 g/dL (12.0-15.0); Mean Corpuscular HGB Conc 33.3 g/dL (32-36); Mean Corpuscular Hemoglobin 26.0 pg (27.0-31.0); Mean Corpuscular Volume 78.1 fL (78.0-102.0); Platelet Count Result 246 K/mm3 (150-420); Red Blood Count 5.35 M/mm3 (4.20-5.40); White Blood Count 7.3 K/mm3 (4.8-10.8)
[2025-07-06 16:16] LABS: Add Urine Microscopic? YES; Appearance Urine Clear (Clear); Glucose Urine UA Negative (Negative); Leukocyte Esterase Ur Negative LEU/UL (Negative); Nitrate Urine Negative (Negative); Specific Grav Ur 1.025 (1.010-1.020)
[2025-07-06 17:04] LABS: Alanine Aminotransferase 52 U/L (6-35); Albumin Level 4.6 g/dL (3.5-5.1); Alkaline Phosphatase 51 U/L (38-126); Amylase 81 U/L (30-110); Anion Gap 11 mmol/L (4-12); Aspartate Amino Transferase 38 U/L (14-36); Bilirubin,Total 0.7 mg/dL (0.2-1.3); Blood Urea Nitrogen 12 mg/dL (7-17); Calcium 9.8 mg/dL (8.4-10.2); Carbon Dioxide 26 mmol/L (22-30); Chloride 108 mmol/L (98-107); Estimated Glomerular Filt Rate > 60; Glucose 95 mg/dL (65-110); Lipase 51 U/L (23-300); Osmolality Calculated 299 mOsm/kg (285-295); Potassium 3.9 mmol/L (3.4-5.0); Sodium 145 mmol/L (137-145); Total Protein 8.5 g/dL (6.3-8.2)
[2025-07-06 17:21] LABS: Beta HCG Quantitative < 2.39 mIU/ML
== END 2025-07-06 16:01 | disposition home or self-care (01) ==
LOC: CHSLAB 16:02
PROVIDERS: PCP Internal Medicine; Visit Provider Internal Medicine
DX: R10.9 Unspecified abdominal pain (principal); R11.0 Nausea; R11.10 Vomiting, unspecified
CPT/HCPCS: 36415; 80053; 81001; 82150; 83690; 84702; 85027

== ENCOUNTER 2025-07-07 07:45 | Emergency (ER) | payer OTHER, SELFPAY ==
[2025-07-07] VITALS (11 sets, daily range): BP systolic 131–162; BP diastolic 80–101; PULSE 81–83; RESP 20; TEMP 36.6; O2SAT 98–100
--- OUTSIDE RECORDS SUMMARY | 2025-07-07 07:47 | XMS_ITS | Clinical Summary ---
Author Organization [facility] Address [address] [place] [address] Care Team Providers Care Solutions Analyst Name Role Phone Leo Turner MD Primary Care Provider [phone] Source Comments [facility],non-owned Affiliates and Associated Physician Practices is amultiple site organization consisting of ambulatory clinics and hospital sitesin [place], [place], [place] and [place]. This disclosure is being madepursuant to the Care Everywhere program and may not contain all information available regarding this patient. Last updated 18.[facility] Active Problems Problem Noted Date [...] age to complete this topic Care Teams Solutions Analyst Relationship Specialty Start Date End Date Leo Turner MD [address] [place] [address] PCP - General Internal Medicine 05/19/18
--- NOTE | 2025-07-07 07:49 | ED.NAVMDI ---
HPI - Nausea/Vomiting/Diarrhea General Chief complaint: Nausea/Vomiting/Diarrhea Stated complaint: nasuea vomiting Source: patient Mode of arrival: ambulatory Limitations: no limitations History of Present Illness HPI Narrative: 19 year old female presents to the Emergency Department complaining of nausea and vomiting. Onset 3 days ago. Denies diarrhea. Patient has this problem recurrently. Mild generalized abdominal pain. Paitne states she has a history of pancreatitis in the past. She denies alcohol use. Denies any known gallbladder disease. She does use marijuana daily. MD elicited complaint: nausea and vomiting Pertinent past history: cyclical vomiting Onset (ago): day(s) (3) Description of vomiting: food contents Associated nausea: Yes Associated abdominal pain: Yes Location of pain: diffuse Exacerbating factors: eating Relieving factors: none Related Data Home Medications ?Medication ?Instructions ?Recorded ?Confirmed ?Last Taken ?Type quetiapine 50 mg tablet 100 mg PO DIRECTED PRN sleep 09/22/22 10/31/24 Unknown History ziprasidone HCl 20 mg capsule 20 mg PO DIRECTED 09/22/22 10/31/24 Unknown History hydroxyzine pamoate 50 mg capsule 50 mg PO DAILY 12/02/23 10/30/24 Unknown History fluvoxamine 100 mg tablet 100 mg PO DAILY 10/30/24 10/30/24 Unknown History pravastatin 20 mg tablet 20 mg PO DAILY 10/30/24 10/30/24 Unknown History aripiprazole 5 mg tablet 5 mg PO DAILY 11/05/24 11/05/24 Unknown History Allergies Allergy/AdvReac Type Severity Reaction Status Date / Time pineapple Allergy Hives Verified 11/05/24 06:22 adhesive AdvReac Rash Verified 11/05/24 06:22 Review of Systems Review of Systems: All systems reviewed & are unremarkable except as noted in HPI and below Constitutional: Constitutional: Reports as per HPI, Denies chills and Denies fever(s) Eyes: Eyes: Reports as per HPI ENT: Reports system reviewed and no additional complaints, except as documented Cardiovascular: Cardiovascular: Reports as per HPI and Denies chest pain Respiratory: Respiratory: Reports as per HPI and Denies dyspnea Gastrointestinal: Gastrointestinal: Reports as per HPI, Reports abdominal pain, Denies constipation, Denies diarrhea, Reports nausea and Reports vomiting Genitourinary: Genitourinary: Reports no additional female genitourinary complaints Musculoskeletal: Musculoskeletal: Reports no additional musculoskeletal complaints Integumentary/Breasts: Skin/Breast: Reports system reviewed and no additional complaints, except as docu Neurologic: Reports system reviewed and no additional complaints, except as documented Psychiatric: Psychiatric: Reports no additional psychiatric complaints Endocrine: Endocrine: Reports no additional endocrine complaints Hematologic/Lymphatic: Hematologic/Lymphatic: Reports no additional hematologic/lymphatic complaints Allergic/Immunologic: Allergic/Immunologic: Reports no additional allergic/immunologic complaints [facility] Past Medical History Medical History Pancreatitis Hyperlipidemia GERD (gastroesophageal reflux disease) Bipolar disorder Anxiety and depression Family History Family History Mother Acute myocardial infarction Father Acute myocardial infarction Sibling Acute myocardial infarction Grandparent Cerebrovascular accident Other Father completed 8 to 12 years of education Social History Social History Smoking status: Never smoker Tobacco type: e-cigarettes/vaping Second hand tobacco smoke exposure: Yes Additional smoking assessment comments: Vapes THC daily Alcohol intake: never Substance use: current Substance use type: marijuana Other substance usage details: Usually daily use, but not when sick. Last use: 10/22/2024 Do You Feel Safe in your Home?: Yes Lack of Transportation: YES Lack of Food: Never True Current Housing: I Have Housing Concerned About Future Housing: YES Difficulty Paying Gas/Electric Bills: No Difficulty Paying for Meds: No Currently Unemployed: No Education: Grade School Difficulty w/ Childcare or Family Care: No Spiritual care concerns: No Exam Const: General: no acute distress Nutritional Appearance: well nourished Orientation/consciousness: patient oriented x3 Limitations: no limitations HENMT: Head: normal to inspection Ears: external ears normal Face/Nose/Sinus: Normal external nose present Face and sinus: normal facial exam Mouth: Yes Normal oral and palatal mucosa present Teeth and gingiva: dentition normal Throat: posterior oropharynx normal Eyes: Pupils: Equal, round and reactive pupils present EOM: EOMs intact bilaterally Direct Ophthalmoscopy: no photophobia Neck: Neck: normal visual inspection and no meningeal signs Chest: Chest palpation & inspection: normal inspection of the chest Resp: Effort & Inspection: normal respiratory effort Auscultation: clear to auscultation bilaterally Cardio: Rate: regular rate Rhythm: regular rhythm Heart sounds: no murmurs GI: Inspection: non-distended GI Palp: Yes Soft to palpation and Yes Tenderness to palpation present (GI) (minimal generalized) Auscultation: normal bowel sounds : General: Yes bladder normal to palpation Back/Spine/Pelvis: Back: no CVA tenderness Skin: General skin exam: normal color Rashes: no rashes Wounds: no wounds Neuro: General: patient oriented x3, moves all extremities, no meningeal signs, no focal motor deficits and CN's II-XI intact bilaterally Cranial nerves: Yes Nystagmus not present Speech: normal speech Gait exam (Neuro): Normal gait present Extrem: General: normal to inspection and no clubbing, cyanosis or edema Psych: Mental Status: mental status grossly normal Course Course Emergency Course: 19 y/o female presents to the ED c/o N/V for past 3 days. Mild generalized abdominal discomfort. No diarrhea. History of recurrently in past. Uses marijuana daily. PE: mild generalized abdominal discomfort with palpation CBC: H/H 13.6/41.5, Plt 225; wbc 8.6 with 68 S, 25 L, 5 M CMP: Na 145, K 3.8, Cl 110, CO2 24, Glc 118, BUN 12, Cr 1.11; LFT's AST 41, ALT 54 A/L: 94/ 62 UA: 6-10 rbc, 3+ blood, 2+ urobili, N+, 1+ bacteria UPreg: negative Tx: NS w/o, Zofran 4 mg IVP. GI cocktail, Reglan 10 mg IVP. (0905) patient states she wants to go home now *reviewed and discussed results with patient. Discussed further management. Patient voices understanding and agreement. Rx and Instructions Vital Signs Vital signs: Vital Signs Temperature 36.6 C 07/07/25 07:47 Pulse Rate 81 07/07/25 07:47 Respiratory Rate 20 07/07/25 07:47 Blood Pressure 131/80 07/07/25 07:47 Pulse Oximetry 98 07/07/25 07:47 Oxygen Delivery Room Air 07/07/25 07:47 Temperature 36.6 C 07/07/25 07:47 Pulse Rate 83 07/07/25 09:01 Respiratory Rate 20 07/07/25 09:01 Blood Pressure 162/101 H 07/07/25 09:01 Pulse Oximetry 100 07/07/25 09:01 Oxygen Delivery Room Air 07/07/25 09:01 MDM - Nausea/Vomiting/Diarrhea Lab Data 07/07/25 08:10 07/07/25 08:10 Labs: Lab Results 07/07/25 07/07/25 Range/Units 08:00 08:10 WBC 8.6 (4.8-10.8) K/mm3 RBC 5.24 (4.20-5.40) M/mm3 Hgb 13.6 (12.0-15.0) g/dL Hct 41.5 (35.0-49.0) % MCV 79.2 (78.0-102.0) fL MCH 26.0 L (27.0-31.0) pg MCHC 32.8 (32-36) g/dL RDW 12.8 (11.6-14.4) % Plt Count 225 (150-420) K/mm3 MPV 9.6 (9.2-11.8) fl Immature Gran % (Auto) 0.3 H (0.0-0.0) % Neut % (Auto) 68.3 (50.0-70.0) % Lymph % (Auto) 24.6 (18.0-42.0) % [place] % (Auto) 5.0 (2.0-11.0) % Eos % (Auto) 1.3 (1.0-6.0) % Baso % (Auto) 0.5 (0.0-1.0) % Lymph # (Auto) 2.11 (1.10-4.50) K/mm3 [place] # (Auto) 0.43 (0.10-0.90) K/mm3 Eos # (Auto) 0.11 (0.02-0.50) K/mm3 Baso # (Auto) 0.04 (0.00-0.10) K/mm3 Abs Immat Gran (auto) 0.03 H (0.00-0.00) K/mm3 Absolute Neuts (auto) 5.86 (1.70-7.20) K/mm3 Absolute Nucleated RBC 0.00 (0.00-0.00) K/mm3 Nucleated RBC % 0.0 (0-0.0) % Sodium 145 (137-145) mmol/L Potassium 3.8 (3.4-5.0) mmol/L Chloride 110 H (98-107) mmol/L Carbon Dioxide 24 (22-30) mmol/L Anion Gap 11 (4-12) mmol/L BUN 12 (7-17) mg/dL Creatinine 1.11 H (0.7-1.0) mg/dL Estim Creat Clear Calc 83 ml/min Estimated GFR > 60 (59 - ) Glucose 118 H (65-110) mg/dL Calculated Osmolality 300 H (285-295) mOsm/kg Calcium 9.7 (8.4-10.2) mg/dL Total Bilirubin 0.8 (0.2-1.3) mg/dL AST 41 H (14-36) U/L ALT 54 H (6-35) U/L Alkaline Phosphatase 52 (38-126) U/L Total Protein 8.3 H (6.3-8.2) g/dL Albumin 4.5 (3.5-5.1) g/dL Amylase 94 (30-110) U/L Lipase 62 (23-300) U/L Urine Color Dark orange (Yellow) Urine Appearance Cloudy A (Clear) Urine pH 5.5 (5.0-8.0) Ur Specific [place] >= 1.030 H (1.010-1.020) Urine Protein 1+ H (Negative) Urine Glucose (UA) Negative (Negative) Urine Ketones Trace H (Negative) Ur Blood (Man) 3+ H (Negative) Urine Nitrate Positive H (Negative) Urine Bilirubin 2+ H (Negative) Urine Urobilinogen 1.0 (0.2-1.0) mg/dL Ur Leukocyte Esterase Negative (Negative) Urine RBC 6-10 H (0-2) /hpf Urine WBC 0-3 (0-3) /hpf Ur Squamous Epith Cells Few (Few) /hpf Urine Bacteria 1+ H (None) /hpf Urine Test Negative Discharge Plan Discharge Clinical Impression: Vomiting, Cannabis hyperemesis syndrome, Elevated LFTs Patient Disposition: Home Condition: Stable Instructions: Low Fat Diet (ED), Acute Nausea and Vomiting (ED), Cyclic Vomiting Syndrome (ED) Additional Instructions: Push fluids Low fat diet Take medication as prescribed Limit marijuana use Follow up Primary Care Provider Patient Language: Bengali Prescriptions: New ondansetron 4 mg tablet,disintegrating 4 mg PO Q6H Qty: 10 1RF No Action hydroxyzine pamoate 50 mg capsule 50 mg PO DAILY ziprasidone HCl 20 mg capsule 20 mg PO DIRECTED quetiapine 50 mg tablet 100 mg PO DIRECTED PRN (Reason: sleep) Patient Comments: last fill of #60 was on 08/12/[facility] on 10/31/[facility] Rx Instructions: 100mg tablet. 1 to 2 tablet qhs prn sleep. fluvoxamine 100 mg tablet 100 mg PO DAILY pravastatin 20 mg tablet 20 mg PO DAILY aripiprazole 5 mg tablet 5 mg PO DAILY Follow-up/Referrals: Leo Turner MD [Primary Care Provider, Internal Medicine] Time of Disposition: 09:15
[2025-07-07] MEDS: ONDANSETRON INJ 4 MG/2 ML VIAL IV PUSH (08:00)
[2025-07-07] MEDS: SODIUM CHLORIDE 0.9% IV 1,000 ML 999 ML IV CONT (08:00)
[2025-07-07 08:13] LABS: Hematocrit 41.5 % (35.0-49.0); Hemoglobin 13.6 g/dL (12.0-15.0); Immature Granulocyte Percent A 0.3 % (0.0-0.0); Lymphocytes Absolute Auto 2.11 K/mm3 (1.10-4.50); Mean Corpuscular HGB Conc 32.8 g/dL (32-36); Mean Corpuscular Hemoglobin 26.0 pg (27.0-31.0); Mean Corpuscular Volume 79.2 fL (78.0-102.0); Nucleated Red Blood Cells Absolute Auto 0.00 K/mm3 (0.00-0.00); Nucleated Red Blood Cells Perc 0.0 % (0-0.0); Platelet Count Result 225 K/mm3 (150-420); Red Blood Count 5.24 M/mm3 (4.20-5.40); White Blood Count 8.6 K/mm3 (4.8-10.8)
[2025-07-07 08:21] LABS: Appearance Urine Cloudy (Clear); Glucose Urine UA Negative (Negative); Leukocyte Esterase Ur Negative (Negative); Nitrate Urine Positive (Negative); Specific Grav Ur >= 1.030 (1.010-1.020)
[2025-07-07 08:23] LABS: Alanine Aminotransferase 54 U/L (6-35); Albumin Level 4.5 g/dL (3.5-5.1); Alkaline Phosphatase 52 U/L (38-126); Amylase 94 U/L (30-110); Anion Gap 11 mmol/L (4-12); Aspartate Amino Transferase 41 U/L (14-36); Bilirubin,Total 0.8 mg/dL (0.2-1.3); Blood Urea Nitrogen 12 mg/dL (7-17); Calcium 9.7 mg/dL (8.4-10.2); Carbon Dioxide 24 mmol/L (22-30); Chloride 110 mmol/L (98-107); Estimated CRCL calculation 83 ml/min; Estimated Glomerular Filt Rate > 60; Glucose 118 mg/dL (65-110); Lipase 62 U/L (23-300); Osmolality Calculated 300 mOsm/kg (285-295); Potassium 3.8 mmol/L (3.4-5.0); Sodium 145 mmol/L (137-145); Total Protein 8.3 g/dL (6.3-8.2)
[2025-07-07 08:25] LABS: Add Urine Microscopic? YES; Pregnancy On Board Control Positive
[2025-07-07] MEDS: METOCLOPRAMIDE HCL INJ 10 MG/2 ML VIAL IV PUSH (08:55)
[2025-07-07] MEDS: MAG HYDROX/ALUMINUM HYD/SIMETH 30 ML, PHENobarb/HYOSCY/ATROPINE/SCOP 32.4 MG, LIDOCAINE... PO (08:55)
== END 2025-07-07 09:15 | disposition home or self-care (01) ==
PROVIDERS: Emergency Provider Emergency Medicine; PCP Internal Medicine
DX: R11.16 Cannabis hyperemesis syndrome (principal); R79.89 Other specified abnormal findings of blood chemistry; F12.90 Cannabis use, unspecified, uncomplicated
CPT/HCPCS: 36415; 80053; 81001; 81025; 82150; 83690; 85025; 96361; 96374; 96375; 99284; A9270; J2405; J2765; J7030

== ENCOUNTER 2025-07-07 12:15 | Emergency (ER) | payer OTHER, SELFPAY ==
--- NOTE | ~2025-07-07 | CT_ITS ---
EXAMINATION: CT abdomen pelvis w con DATE: 07/07/2025 13:51 INDICATION: Upper abdominal pain. Nausea and vomiting. Diarrhea. TECHNIQUE: Computed tomography (CT) of the abdomen and pelvis was performed with 100 mL Omnipaque 350 intravenous contrast. Automated exposure control and iterative reconstruction technique were employed. The dose-length product was 931.89 mGy-cm. COMPARISON: CT abdomen pelvis 10/30/2024 FINDINGS: The visualized portions of the lung bases are clear without pneumonia or pleural effusion. The heart size is normal. No pericardial effusion. There is a small sliding hiatal hernia. There is diffuse hepatic steatosis. The gallbladder, spleen, pancreas, adrenal glands, and kidneys are normal. There are no dilated loops of bowel. The appendix is normal. There are no pathologically enlarged lymph nodes. There is no free intraperitoneal fluid. There is mild lumbar spondylosis. IMPRESSION: 1. Small sliding hiatal hernia. 2. Diffuse hepatic steatosis. Reviewed, dictated and finalized at location E.
[2025-07-07 12:15] VITALS: BP 131/76; PULSE 78; RESP 18; TEMP 36.3; O2SAT 99
--- OUTSIDE RECORDS SUMMARY | 2025-07-07 12:49 | XMS_ITS | Clinical Summary ---
Author Organization [facility] Address [address] [place] [address] Care Team Providers Care Boy'S Adviser Name Role Phone Leo Turner MD Primary Care Provider Source Comments [facility],non-owned Affiliates and Associated Physician Practices is amultiple site organization consisting of ambulatory clinics and hospital sitesin [place], [place], [place] and [place]. This disclosure is being madepursuant to the Care Everywhere program and may not contain all information available regarding this patient. Last updated 18.[facility] Active Problems Problem Noted Date Diagnosed Date [...] age to complete this topic Care Teams Boy'S Adviser Relationship Specialty Start Date End Date Leo Turner MD [address] [place] [address] PCP - General Internal Medicine 05/19/18
--- OUTSIDE RECORDS SUMMARY | 2025-07-07 12:49 | XMS_ITS | Clinical Summary ---
Author Organization [facility] Address [address] [place] [address] Care Team Providers Care Medical Lead Name Role Phone Leo Turner MD Primary Care Provider [phone] Allergies Active Allergy Reactions Criticality Noted Date [...] Sex Assigned at Female 11/03/2024 3:46 PM PRINCIPAL ENGINEER Legal Sex Female 5:50 PM PRINCIPAL ENGINEER Gender Identity Not on file Sexual Orientation Not on file Last Filed Vital Signs Vital Sign Reading Time Taken Comments Blood Pressure 139/102 11/03/2024 6:00 PM PRINCIPAL ENGINEER Pulse 89 11/03/2024 6:00 PM PRINCIPAL ENGINEER Temperature 37.3 C (99.2 F) 11/03/2024 2:49 PM PRINCIPAL ENGINEER Respiratory Rate 18 11/03/2024 2:49 PM PRINCIPAL ENGINEER Oxygen Saturation 100% 11/03/2024 6:00 PM PRINCIPAL ENGINEER Inhaled Oxygen Concentration - - Weight 109.4 kg (241 lb 2 oz) 11/03/2024 2:49 PM PRINCIPAL ENGINEER Height 162.6 cm (5' 4) 11/03/2024 2:49 PM PRINCIPAL ENGINEER Body Mass Index 41.39 11/03/2024 2:49 PM PRINCIPAL ENGINEER Plan of Treatment Health Maintenance Due Date [...] patient's age to complete this topic Insurance [employer] [employer] Care Teams Medical Lead Relationship Specialty Start Date End Date Leo Turner MD [address] [place] [id number] PCP - General INTERNAL MEDICINE 11/03/24
--- NOTE | 2025-07-07 12:58 | ED_ITS ---
HPI - Nausea/Vomiting/Diarrhea General Chief complaint: Nausea/Vomiting/Diarrhea Stated complaint: vomiting blood Source: patient Mode of arrival: ambulatory Limitations: no limitations History of Present Illness HPI Narrative: 19 year old female returns to the Emergency Department. Patient was discharged several hours ago at her request. She was being seen for vomiting. Her workup was unremarkable. On previous visit, she states her mother keeps calling her. She states her mother will take care of her at home. At that time, she requested discharge. She returns now stating she has vomited flecks of blood. Complains of upper abdominal pain. MD elicited complaint: nausea and vomiting Pertinent past history: cyclical vomiting Onset (ago): day(s) (3) Description of diarrhea: blood (tiny flecks of blood) Associated nausea: Yes Associated abdominal pain: Yes Location of pain: epigastric Exacerbating factors: vomiting Relieving factors: none Treatment prior to arrival: other (seen in ED several hours ago and requested to be discharged) Related Data Home Medications ?Medication ?Instructions ?Recorded ?Confirmed ?Last Taken ?Type quetiapine 50 mg tablet 100 mg PO DIRECTED PRN sl eep 09/22/22 07/07/25 Unknown History ziprasidone HCl 20 mg capsule 20 mg PO DIRECTED 07/07/25 Unknown History hydroxyzine pamoate 50 mg capsule 50 mg PO DAILY 07/07/25 Unknown History fluvoxamine 100 mg tablet 100 mg PO DAILY 10/30/2401/26 Unknown History pravastatin 20 mg tablet 20 mg PO DAILY 10/30/2401/26 Unknown History aripiprazole 5 mg tablet 5 mg PO DAILY 11/05/2407/07 Unknown History Allergies Allergy/AdvReac Type Severity Reaction Status Date / Time pineapple Allergy Hives Verified 07/07/25 12:33 adhesive AdvReac Rash Verified 07/07/25 12:33 Review of Systems 2 Review of Systems: All systems reviewed & are unremarkable except as noted in HPI and below Constitutional: Constitutional: Reports as per HPI, Denies chills and Denies fever(s) Eyes: Eyes: Reports as per HPI ENT: Reports system reviewed and no additional complaints, except as documented Cardiovascular: Cardiovascular: Reports as per HPI and Denies chest pain Respiratory: Respiratory: Reports as per HPI, Denies chest congestion, Denies cough and Denies dyspnea Gastrointestinal: Gastrointestinal: Reports as per HPI, Reports abdominal pain, Reports nausea and Reports vomiting Genitourinary: Genitourinary: Reports no additional female genitourinary complaints Musculoskeletal: Musculoskeletal: Reports no additional musculoskeletal complaints and Denies back pain Integumentary/Breasts: Skin/Breast: Reports system reviewed and no additional complaints, except as docu Neurologic: Reports system reviewed and no additional complaints, except as documented Psychiatric: Psychiatric: Reports no additional psychiatric complaints Endocrine: Endocrine: Reports no additional endocrine complaints Hematologic/Lymphatic: Hematologic/Lymphatic: Reports no additional hematologic/lymphatic complaints Allergic/Immunologic: Allergic/Immunologic: Reports no additional allergic/immunologic complaints [facility] Past Medical History Medical History Pancreatitis Hyperlipidemia GERD (gastroesophageal reflux disease) Bipolar disorder Anxiety and depression Family History Family History Mother Acute myocardial infarction Father Acute myocardial infarction Sibling Acute myocardial infarction Grandparent Cerebrovascular accident Other Father completed 8 to 12 years of education Social History Social History Smoking status: Never smoker Tobacco type: e-cigarettes/vaping Second hand tobacco smoke exposure: Yes Additional smoking assessment comments: Vapes THC daily Alcohol intake: never Substance use: current Substance use type: marijuana Other substance usage details: Usually daily use, but not when sick. Last use: 10/22/2024 Do You Feel Safe in your Home?: Yes Lack of Transportation: YES Lack of Food: Never True Current Housing: I Have Housing Concerned About Future Housing: YES Difficulty Paying Gas/Electric Bills: No Difficulty Paying for Meds: No Currently Unemployed: No Education: Grade School Difficulty w/ Childcare or Family Care: No Spiritual care concerns: No Exam 2 Const: General: no acute distress Nutritional Appearance: obese O rientation/consciousness: patient oriented x3 Limitations: no limitations HENMT: Head: normal to inspection Ears: external ears normal F daiana/Nose/Sinus: Normal external nose present Face and sinus: normal facial exam Mouth: Yes Normal oral and palatal mucosa present Teeth and gingiva: dentition normal Throat: posterior oropharynx normal Eyes: Pupils: Equal, round and reactive pupils present EOM: EOMs intact bilaterally Direct Ophthalmoscopy: no photophobia Neck: Neck: normal visual inspection and no meningeal signs Chest: Chest palpation & inspection: normal inspection of the chest Resp: Effort & Inspection: normal respiratory effort Auscultation: clear to auscultation bilaterally Cardio: Rate: regular rate Rhythm: regular rhythm Heart sounds: no murmurs GI: Inspection: non-distended GI Palp: Yes Soft to palpation and Yes Tenderness to palpation present (GI) (epigastric) Auscultation: normal bowel sounds : General: Yes bladder normal to palpation Back/Spine/Pelvis: Back: no CVA tenderness Skin: General skin exam: normal color Rashes: no rashes Wounds: no wounds Neuro: General: patient oriented x3 Cranial nerves: Yes Nystagmus not present Speech: normal speech Gait exam (Neuro): Normal gait present O ther: grossly normal Extrem: General: normal to inspection Psych: Attitude: cooperative Course Course Emergency Course: 19 year old female returns to the ED c/o vomiting. Patient was seen several hours ago for same. She had work up and IVF and medications. She states her mother was calling her frequently and she wanted to leave because her mother would take care of her at home. She states she has vomited several small flecks of blood. She complains of upper abdominal pain. PE: no acute distress, mild tenderness upper abdomen. CBC: H/H 14.1/42.9, Plt 251; wbc 8 with 71 S, 24 L, 4 M CMP: Na 145, K 3.8, Cl 108, CO2 23, Glc 115, BUN 10, Cr 1.11; LFT's AST 43, ALT 58 Lipase: 78 CT Abd/Pelvis: small sliding hiatal hernia; diffuse hepatic steatosis Tx: NS w/o, GI cocktail, Zofran 4 mg IVP, Toradol 30 mg IVP, Protonix 40 mg IVP. (1405) patient standing in hallway wanting to be discharged again *reviewed and discussed results with patient. Discussed further management. Patient voices understanding and agreement. Rx and Instructions Vital Signs Vital signs: Vital Signs Temperature 36.3 C L 07/07/25 12:15 Pulse Rate 78 07/07/25 12:15 Respiratory Rate 18 07/07/25 12:15 Blood Pressure 131/76 07/07/25 12:15 Pulse Oximetry 99 07/07/25 12:15 Oxygen Delivery Room Air 07/07/25 12:15 Temperature 36.3 C L 07/07/25 12:15 Pulse Rate 78 07/07/25 12:15 Respiratory Rate 18 07/07/25 12:15 Blood Pressure 131/76 07/07/25 12:15 Pulse Oximetry 99 07/07/25 12:15 Oxygen Delivery Room Air 07/07/25 12:15 MDM - Nausea/Vomiting/Diarrhea Lab Data 07/07/25 13:32 07/07/25 13:32 Labs: Lab Results 07/07/25 Range/Units 13:32 WBC 8.0 (4.8-10.8) K/mm3 RBC 5.48 H (4.20-5.40) M/mm3 Hgb 14.1 (12.0-15.0) g/dL Hct 42.9 (35.0-49.0) % MCV 78.3 (78.0-102.0) fL MCH 25.7 L (27.0-31.0) pg MCHC 32.9 (32-36) g/dL RDW 12.8 (11.6-14.4) % Plt Count 251 (150-420) K/mm3 MPV 9.8 (9.2-11.8) fl Immature Gran % (Auto) 0.4 H (0.0-0.0) % Neut % (Auto) 71.4 H (50.0-70.0) % Lymph % (Auto) 23.9 (18.0-42.0) % Taylor % (Auto) 3.9 (2.0-11.0) % Eos % (Auto) 0.1 L (1.0-6.0) % Baso % (Auto) 0.3 (0.0-1.0) % Lymph # (Auto) 1.90 (1.10-4.50) K/mm3 Taylor # (Auto) 0.31 (0.10-0.90) K/mm3 Eos # (Auto) 0.01 L (0.02-0.50) K/mm3 Baso # (Auto) 0.02 (0.00-0.10) K/mm3 Abs Immat Gran (auto) 0.03 H (0.00-0.00) K/mm3 Absolute Neuts (auto) 5.68 (1.70-7.20) K/mm3 Absolute Nucleated RBC 0.00 (0.00-0.00) K/mm3 Nucleated RBC % 0.0 (0-0.0) % Sodium 145 (137-145) mmol/L Potassium 3.8 (3.4-5.0) mmol/L Chloride 108 H (98-107) mmol/L Carbon Dioxide 23 (22-30) mmol/L Anion Gap 14 H (4-12) mmol/L BUN 10 (7-17) mg/dL Creatinine 1.11 H (0.7-1.0) mg/dL Estim Creat Clear Calc 83 ml/min Estimated GFR > 60 (59 - ) Glucose 115 H (65-110) mg/dL Calculated Osmolality 300 H (285-295) mOsm/kg Calcium 9.7 (8.4-10.2) mg/dL Total Bilirubin 0.8 (0.2-1.3) mg/dL AST 43 H (14-36) U/L ALT 58 H (6-35) U/L Alkaline Phosphatase 57 (38-126) U/L Total Protein 9.2 H (6.3-8.2) g/dL Albumin 4.7 (3.5-5.1) g/dL Lipase 78 (23-300) U/L Discharge Plan Discharge Clinical Impression: Cyclic vomiting syndrome, Vomiting, Hepatic steatosis, Shara-Lanza tear, Hiatal hernia, Cannabis hyperemesis syndrome, Elevated LFTs Patient Disposition: Home Condition: Stable Instructions: Hiatal Hernia (DC), Acute Nausea and Vomiting (ED), Non-Alcoholic Fatty Liver Disease (ED), Cannabis Use Disorder (ED), Shara-Lanza Syndrome (ED), Cyclic Vomiting Syndrome (ED) Additional Instructions: Push fluids Take medication as prescribed now and previously today Limit use of marijuana Follow up with your Primary Care Provider Patient Language: Turkish Prescriptions: New pantoprazole [Protonix] 40 mg tablet,delayed release (DR/EC) 40 mg PO QAM Qty: 10 0RF No Action hydroxyzine pamoate 50 mg capsule 50 mg PO DAILY ondansetron 4 mg tablet,disintegrating 4 mg PO Q6H Qty: 10 1RF ziprasidone HCl 20 mg capsule 20 mg PO DIRECTED quetiapine 50 mg tablet 100 mg PO DIRECTED PRN (Reason: sleep) Patient Comments: last fill of #60 was on 08/12/[facility] on 10/31/24 Rx Instructions: 100mg tablet. 1 to 2 tablet qhs prn sleep. fluvoxamine 100 mg tablet 100 mg PO DAILY pravastatin 20 mg tablet 20 mg PO DAILY aripiprazole 5 mg tablet 5 mg PO DAILY Follow-up/Referrals: Leo Turner MD [Primary Care Provider, Internal Medicine] Stand Alone Forms: Work/School Release IP Time of Disposition: 14:45
[2025-07-07] MEDS: ONDANSETRON INJ 4 MG/2 ML VIAL IV PUSH (13:51)
[2025-07-07] MEDS: KETOROLAC 30 MG/ML VIAL (*BKC) IV PUSH (13:51)
[2025-07-07] MEDS: PANTOPRAZOLE SODIUM IV 40 MG VIAL IV PUSH (13:51)
[2025-07-07] MEDS: MAG HYDROX/ALUMINUM HYD/SIMETH 30 ML, PHENobarb/HYOSCY/ATROPINE/SCOP 32.4 MG, LIDOCAINE... PO (13:51)
[2025-07-07 13:52] LABS: Hematocrit 42.9 % (35.0-49.0); Hemoglobin 14.1 g/dL (12.0-15.0); Immature Granulocyte Percent A 0.4 % (0.0-0.0); Lymphocytes Absolute Auto 1.90 K/mm3 (1.10-4.50); Mean Corpuscular HGB Conc 32.9 g/dL (32-36); Mean Corpuscular Hemoglobin 25.7 pg (27.0-31.0); Mean Corpuscular Volume 78.3 fL (78.0-102.0); Nucleated Red Blood Cells Absolute Auto 0.00 K/mm3 (0.00-0.00); Nucleated Red Blood Cells Perc 0.0 % (0-0.0); Platelet Count Result 251 K/mm3 (150-420); Red Blood Count 5.48 M/mm3 (4.20-5.40); White Blood Count 8.0 K/mm3 (4.8-10.8)
[2025-07-07 14:03] LABS: Alanine Aminotransferase 58 U/L (6-35); Albumin Level 4.7 g/dL (3.5-5.1); Alkaline Phosphatase 57 U/L (38-126); Anion Gap 14 mmol/L (4-12); Aspartate Amino Transferase 43 U/L (14-36); Bilirubin,Total 0.8 mg/dL (0.2-1.3); Blood Urea Nitrogen 10 mg/dL (7-17); Calcium 9.7 mg/dL (8.4-10.2); Carbon Dioxide 23 mmol/L (22-30); Chloride 108 mmol/L (98-107); Estimated CRCL calculation 83 ml/min; Estimated Glomerular Filt Rate > 60; Glucose 115 mg/dL (65-110); Lipase 78 U/L (23-300); Osmolality Calculated 300 mOsm/kg (285-295); Potassium 3.8 mmol/L (3.4-5.0); Sodium 145 mmol/L (137-145); Total Protein 9.2 g/dL (6.3-8.2)
== END 2025-07-07 14:50 | disposition home or self-care (01) ==
PROVIDERS: Emergency Provider Emergency Medicine; PCP Internal Medicine
DX: R11.16 Cannabis hyperemesis syndrome (principal); K22.6 Gastro-esophageal laceration-hemorrhage syndrome; R79.89 Other specified abnormal findings of blood chemistry; K76.0 Fatty (change of) liver, not elsewhere classified; K44.9 Diaphragmatic hernia without obstruction or gangrene; F12.90 Cannabis use, unspecified, uncomplicated
CPT/HCPCS: 36415; 74177; 80053; 83690; 85025; 96374; 96375; 99284; A9270; J1885; J2405; J2470; Q9967